=== PATIENT | female | born 1945 | race Asian ===

== ENCOUNTER 2016-07-16 21:48 | Emergency (ER) | payer MEDICARE, OTHER ==
[2016-07-16] MEDS ORDERED: ONDANSETRON 4 MG/2 ML VIAL IVP STA (22:06)
[2016-07-16] MEDS ORDERED: SODIUM CHLORIDE 0.9% 1,000 ML IV ONE (22:06)
[2016-07-16] MEDS ORDERED: ONDANSETRON 4 MG/2 ML VIAL ONE (22:30)
== END 2016-07-17 02:59 | disposition home or self-care (01) ==
DX: J11.1 Influenza due to unidentified influenza virus with other respiratory manifestations (principal)

== ENCOUNTER 2016-10-28 17:43 | Emergency (ER) | payer MEDICARE, OTHER | END 2016-10-28 18:47 | disposition left against medical advice (07) | DX: K59.00 Constipation, unspecified (principal); Z53.21 Procedure and treatment not carried out due to patient leaving prior to being seen by health care provider ==

== ENCOUNTER 2017-03-22 21:14 | Emergency (ER) | payer MEDICARE, OTHER ==
[2017-03-22] MEDS ORDERED: SODIUM CHLORIDE 0.9% 1,000 ML IV ONE (22:01)
[2017-03-22] MEDS ORDERED: ONDANSETRON 4 MG/2 ML VIAL IVP STA (22:01)
--- NOTE | 2017-03-22 22:05 | ED Physician Documentation ---
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 She started a new oral chemotherapeutic regimen tonight and about half an hour after taking the pills developed severe nausea and has vomited 4 times. She had a normal bowel movement just prior to this and denies abdominal pain.) Review of Systems Constitutional: denies: Fever, Chills Nose: denies: Rhinorrhea / runny nose, Congestion Cardiac: denies: Chest pain / pressure, Palpitations Respiratory: denies: Dyspnea, Cough GI: reports: Nausea, Vomiting. denies: Abdominal Pain, Constipation, Diarrhea PD PAST MEDICAL HISTORY - Past Medical History Past Medical History: Yes Cardiovascular: None Respiratory: Other Neuro: None Endocrine/Autoimmune: None GI: None TECHNOLOGY METHODOLOGY CONSULTANT: None : None HEENT: None Psych: None Musculoskeletal: None, Osteoporosis Derm: None - Past Surgical History Past Surgical History: Yes /TECHNOLOGY METHODOLOGY CONSULTANT: section Cardiovascular: Lobectomy - Present Medications Home Medications: Ambulatory Orders Medication Instructions Recorded Confirmed Alectinib HCl [Alecensa] 150 mg PO BID 03/22/17 03/22/17 Crizotinib [Xalkori] 1 cap PO BID 03/22/17 03/22/17 Ondansetron HCl [Zofran] 4 mg PO Q6H PRN #10 tablet 03/22/17 - Allergies Allergies/Adverse Reactions: Allergies Allergy/AdvReac Type Severity Reaction Status Date / Time influenza virus vaccine, Allergy Unknown Verified 03/22/17 21:35 specific [influenza virus vacc,specific] - Social History Does the pt smoke?: No Smoking Status: Never smoker Does the pt drink ETOH?: No Does the pt have substance abuse?: No - Immunizations Immunizations are current?: Yes - POLST Patient has POLST: Yes POLST Status: DNR PD ED PE NORMAL - Vitals Vital signs reviewed: Yes - General General: Alert and oriented X 3, Other (She is pale and somewhat jaundiced) - Neck Neck: Supple, no meningeal sign, No bony TTP - Cardiac Cardiac: RRR, No murmur - Respiratory Respiratory: No respiratory distress, Clear bilaterally - Abdomen Abdomen: Normal bowel sounds, Soft, Non tender - Neuro Neuro: Alert and oriented X 3, Normal speech - Psych Psych: Normal mood, Normal affect Results - Vitals Vitals: Vital Signs - 24 hr 03/22/17 03/22/17 03/22/17 21:33 22:25 22:51 Temperature 36.5 C 36.3 C L Heart Rate 75 65 65 Respiratory 20 16 16 Rate Blood Pressure 112/71 115/61 115/63 O2 Saturation 99 97 96 Oxygen O2 Source Room air - Labs Labs: Laboratory Tests 03/22/17 03/22/17 21:50 21:50 WBC 7.8 RBC 4.80 Hgb 10.2 L Hct 32.5 L MCV 67.6 L MCH 21.2 L MCHC 31.3 L RDW 17.6 H Plt Count 352 MPV 7.3 L Neut # 4.7 Lymph # 1.6 [place] # 1.3 H Eos # 0.2 Baso # 0.1 Absolute Nucleated RBC 0.01 Nucleated RBCs 0.1 Manual Slide Review Indicated Platelet Estimate NORMAL (130-450,000) RBC Morph Micro Appear 1+ SCHISTOCYTES Sodium 136 Potassium 4.1 Chloride 102 Carbon Dioxide 28 Anion Gap 6.0 BUN 15 Creatinine 0.8 Estimated GFR (MDRD) 71 L Glucose 98 Calcium 8.2 L Total Bilirubin 0.4 AST 46 H ALT 43 Alkaline Phosphatase 200 H Total Protein 5.6 L Albumin 3.0 L Globulin 2.6 Albumin/Globulin Ratio 1.2 Lipase 57 H PD MEDICAL DECISION MAKING - ED course ED course: 71-year-old woman with chemotherapy related nausea and vomiting. There is no evidence of bowel obstruction. I thought she may look jaundiced on exam but this is not corroborated on labs. She does have an elevated alkaline phosphatase, but this can be explained by bony metastases. She was given a liter of IV fluids and Zofran with significant improvement in her nausea and passed an oral challenge here. Departure - Departure Disposition: 01 Home, Self Care Clinical Impression: Vomiting Condition: Good Record reviewed to determine appropriate education?: Yes Instructions: Nausea Vomit Control Prescriptions: Ondansetron HCl [Zofran] 4 mg PO Q6H PRN #10 tablet PRN Reason: Nausea / Vomiting Comments: Call your oncologist tomorrow for guidance on the medication ongoing.
[2017-03-22] MEDS ORDERED: ONDANSETRON 4 MG/2 ML VIAL ONE (22:12)
[2017-03-22 22:14] LABS: BASOPHILS # (AUTO) 0.1 10^3/uL (0.0-0.1); BASOPHILS % (AUTO) 0.9 %; EOSINOPHILS # (AUTO) 0.2 10^3/uL (0.0-0.7); EOSINOPHILS % (AUTO) 2.4 %; HCT - HEMATOCRIT 32.5 % (37.0-47.0); HGB - HEMOGLOBIN 10.2 g/dL (12.0-16.0); LYMPHOCYTES # (AUTO) 1.6 10^3/uL (1.5-3.5); LYMPHOCYTES % (AUTO) 20.1 %; MEAN CORPUSCULAR HEMOGLOBIN 21.2 pg (27.0-31.0); MEAN CORPUSCULAR HGB CONC 31.3 g/dL (32.0-36.0); MEAN CORPUSCULAR VOLUME 67.6 fL (81.0-99.0); MEAN PLATELET VOLUME 7.3 fL (7.9-10.8); MONOCYTES # (AUTO) 1.3 10^3/uL (0.0-1.0); MONOCYTES % (AUTO) 16.3 %; NEUTROPHILS # (AUTO) 4.7 10^3/uL (1.5-6.6); NEUTROPHILS % (AUTO) 60.3 %; NUCLEATED RED BLOOD CELLS AUTO 0.1 /100WBC; RED CELL DISTRIBUTION WIDTH 17.6 % (12.0-15.0); UNCORRECTED WHITE BLOOD COUNT 7.8 x10^3/uL; WHITE BLOOD COUNT 7.8 x10^3/uL (4.8-10.8)
[2017-03-22 22:24] LABS: ALBUMIN/GLOBULIN RATIO 1.2 (1.0-2.2); BILIRUBIN,TOTAL 0.4 mg/dL (0.2-1.0); CALCIUM 8.2 mg/dL (8.5-10.3); CREATININE 0.8 mg/dL (0.4-1.0); POTASSIUM 4.1 mmol/L (3.5-5.0); TOTAL PROTEIN 5.6 g/dL (6.7-8.2)
[2017-03-22] MEDS ORDERED: ONDANSETRON ODT 4 MG Prepack 2 TL STA (22:38)
[2017-03-22 22:44] LABS: PLATELET ESTIMATE, MANUAL NORMAL (130-450,000) (NORMAL)
[2017-03-22] MEDS ORDERED: ONDANSETRON ODT 4 MG Prepack 2 TL ONE (22:47)
[2017-03-22 22:52] VITALS: BP 115/63
== END 2017-03-22 22:59 | disposition home or self-care (01) ==
LOC: ED 21:14
DX: R11.2 Nausea with vomiting, unspecified (principal); C34.90 Malignant neoplasm of unspecified part of unspecified bronchus or lung; C79.31 Secondary malignant neoplasm of brain; C79.51 Secondary malignant neoplasm of bone; Z92.21 Personal history of antineoplastic chemotherapy; Z90.2 Acquired absence of lung [part of]
CPT/HCPCS: 36415; 80053; 83690; 85025; 96374; 99283; 99284

== ENCOUNTER 2017-09-19 12:58 | Outpatient (CLI) | payer MEDICARE, OTHER ==
--- NOTE | 2017-09-19 16:24 | Ultrasound Report ---
RETROPERITONEAL ULTRASOUND: 09/19/2017 COMPARISON: None. INDICATION: Right renal mass or lesion on CT 08/03/2017. TECHNIQUE: Sonographic evaluation of the kidneys and urinary bladder was performed. FINDINGS: Right kidney 10.1 cm. Simple appearing lower pole cyst 1.7 cm. Otherwise, unremarkable kidney. Left kidney 9.6 cm. Mild pelviectasis. No masses or hydronephrosis. There are bilateral bladder jets. Prevoid volume 97 mL. Postvoid volume 3 mL IMPRESSION: SIMPLE APPEARING RIGHT RENAL CYST. MILD LEFT PELVIECTASIS. MINIMAL POSTVOID RESIDUAL. TD: 09/19/2017 16:22 MOHINDER
== END 2017-09-19 12:59 | disposition home or self-care (01) ==
LOC: DI 12:58
PROVIDERS: ATTEND Internal Medicine
DX: N28.1 Cyst of kidney, acquired (principal)
CPT/HCPCS: 76770

== ENCOUNTER 2017-10-13 13:54 | Emergency (ER) | payer MEDICARE, OTHER ==
[2017-10-13 14:52] VITALS: BP 116/65
[2017-10-13] MEDS ORDERED: ONDANSETRON ODT 4 MG TABLET TL STA (16:29)
--- NOTE | 2017-10-13 16:32 | ED Physician Documentation ---
PD HPI ABD PAIN - Stated complaint Stated Complaint: VOMITING/DIARRHEA - Chief complaint Chief Complaint: Abd Pain - History obtained from History obtained from: Patient, Family () - History of Present Illness Timing - onset: Today (This is a mona 72-year-old woman with lung cancer who is on maintenance oral chemotherapy. Since starting in a month ago she has had diarrhea which improved with Imodium but today had one episode of vomiting but is now feeling better. There was no abdominal pain or blood from either end with this.) Review of Systems Constitutional: denies: Fever, Chills Cardiac: denies: Chest pain / pressure, Palpitations Respiratory: denies: Dyspnea, Cough GI: reports: Nausea, Vomiting, Diarrhea. denies: Abdominal Pain, Hematemesis, Bloody / black stool PD PAST MEDICAL HISTORY - Past Medical History Cardiovascular: None Respiratory: Other Neuro: None Endocrine/Autoimmune: None GI: None BAND SAW OPERATOR: None : None HEENT: None Psych: None Musculoskeletal: None, Osteoporosis Derm: None - Past Surgical History Past Surgical History: Yes /BAND SAW OPERATOR: section Cardiovascular: Lobectomy - Present Medications Home Medications: Ambulatory Orders Medication Instructions Recorded Confirmed Ondansetron HCl [Zofran] 4 mg PO Q6H PRN #10 tablet 03/22/17 Ceritinib [Zykadia] 10/13/17 - Allergies Allergies/Adverse Reactions: Allergies Allergy/AdvReac Type Severity Reaction Status Date / Time influenza virus vaccine, Allergy Unknown Verified 03/22/17 21:35 specific [influenza virus vacc,specific] - Social History Does the pt smoke?: No Smoking Status: Never smoker Does the pt drink ETOH?: No Does the pt have substance abuse?: No - Immunizations Immunizations are current?: Yes - POLST Patient has POLST: Yes POLST Status: DNR PD ED PE NORMAL - Vitals Vital signs reviewed: Yes - General General: Alert and oriented X 3, No acute distress - Cardiac Cardiac: RRR, No murmur - Respiratory Respiratory: No respiratory distress, Clear bilaterally - Abdomen Abdomen: Normal bowel sounds, Soft, Non tender - Neuro Neuro: Alert and oriented X 3, Normal speech Results - Vitals Vitals: Vital Signs - 24 hr 10/13/17 14:37 Temperature 36.7 C Heart Rate 79 Respiratory 14 Rate Blood Pressure 116/65 O2 Saturation 97 Oxygen O2 Source Room air PD MEDICAL DECISION MAKING - ED course ED course: 1 episode of vomiting, resolved CT TECHNICIAN. NTTP. She was prescribed oral antiemetics for this by her oncologist but did not take any, today was the first time she had had issues with vomiting. She was offered IV fluids but since she already feels better she declines and just wants to go home. Departure - Departure Disposition: Home, Self Care Clinical Impression: Vomiting Qualifiers: Vomiting type: unspecified Vomiting Intractability: non-intractable Nausea presence: with nausea Qualified Code(s): R11.2 - Nausea with vomiting, unspecified Condition: Good Record reviewed to determine appropriate education?: Yes Instructions: ED Nausea Vomiting Comments: Take your home nausea meds if you have further episodes, return anytime if worse.
== END 2017-10-13 16:59 | disposition home or self-care (01) ==
LOC: ED 13:54
DX: R11.2 Nausea with vomiting, unspecified (principal); C34.90 Malignant neoplasm of unspecified part of unspecified bronchus or lung; Z90.2 Acquired absence of lung [part of]
CPT/HCPCS: 99282; 99283; Q0162

== ENCOUNTER 2018-02-24 09:10 | Outpatient (CLI) | payer MEDICARE, OTHER ==
[2018-02-24 13:02] LABS: HB2 TOTAL 13.8 g/dL; HEMOGLOBIN A1C 0.56 g/dL; HEMOGLOBIN A1C % 5.9 % (4.6-6.2)
== END 2018-02-24 09:11 | disposition home or self-care (01) ==
LOC: LAB.N 09:10
PROVIDERS: ATTEND Internal Medicine
DX: R73.9 Hyperglycemia, unspecified (principal)
CPT/HCPCS: 36415; 82947; 83036

== ENCOUNTER 2018-05-09 09:36 | Outpatient (CLI) | payer MEDICARE, OTHER ==
--- NOTE | 2018-05-09 12:49 | Ultrasound Report ---
Reason: RUQ PAIN Procedure Date: 05/09/2018 Accession Number: [id number] / [id number] Procedure: US - Abdomen Limited CPT Code: FULL RESULT: EXAM: ABDOMEN ULTRASOUND LIMITED, RIGHT UPPER QUADRANT EXAM DATE: 05/09/2018 10:33 AM. CLINICAL HISTORY: Right upper quadrant pain. COMPARISON: ABDOMEN/PELVIS W/O 11/21/2014 12:09 AM. TECHNIQUE: Real-time scanning was performed with static images obtained. FINDINGS: Liver: Heterogeneous and echogenic liver parenchyma. Right lobe of the liver measures at least 10.1 cm. Main portal vein flow: Hepatopetal. Gallbladder: Small mobile calculi are appreciated. There are no other signs to suggest cholecystitis and the sonographic Duong's sign is negative. Biliary System: CBD measures 3 mm. No intrahepatic or extrahepatic ductal dilatation. Other: Right kidney is grossly unremarkable aside from a simple renal cyst measuring up to 1.5 cm. IMPRESSION: Echogenic liver parenchyma, which can be seen with parenchymal disease such as hepatic steatosis. RADIA
== END 2018-05-09 09:37 | disposition home or self-care (01) ==
LOC: DI 09:36
PROVIDERS: ATTEND Internal Medicine Gastroenterology
DX: R10.11 Right upper quadrant pain (principal)
CPT/HCPCS: 76705

== ENCOUNTER 2018-08-10 09:57 | Outpatient (CLI) | payer MEDICARE, OTHER ==
[2018-08-10 10:45] LABS: BASOPHILS # (AUTO) 0.1 10^3/uL (0.0-0.1); BASOPHILS % (AUTO) 2.7 %; EOSINOPHILS # (AUTO) 0.1 10^3/uL (0.0-0.7); EOSINOPHILS % (AUTO) 1.2 %; LYMPHOCYTES # (AUTO) 0.9 10^3/uL (1.5-3.5); LYMPHOCYTES % (AUTO) 18.3 %; MEAN CORPUSCULAR HEMOGLOBIN 22.6 pg (27.0-31.0); MEAN CORPUSCULAR HGB CONC 31.3 g/dL (32.0-36.0); MEAN CORPUSCULAR VOLUME 72.1 fL (81.0-99.0); MEAN PLATELET VOLUME 7.9 fL (7.9-10.8); MONOCYTES # (AUTO) 0.6 10^3/uL (0.0-1.0); MONOCYTES % (AUTO) 11.8 %; NEUTROPHILS # (AUTO) 3.4 10^3/uL (1.5-6.6); PLT - PLATELET COUNT 212 10^3/uL (130-450); RED BLOOD COUNT 5.78 10^6/uL (4.20-5.40); RED CELL DISTRIBUTION WIDTH 15.9 % (12.0-15.0); WHITE BLOOD COUNT 5.2 x10^3/uL (4.8-10.8)
[2018-08-10 10:56] LABS: ALBUMIN/GLOBULIN RATIO 1.5 (1.0-2.2); ALKALINE PHOSPHATASE 56 IU/L (42-121); ALT ALANINE AMINOTRANSFERASE 51 IU/L (10-60); AST ASPARTATE AMINOTRANSFERASE 39 IU/L (10-42); BILIRUBIN,TOTAL 0.8 mg/dL (0.2-1.0); BUN - BLOOD UREA NITROGEN 9 mg/dL (6-20); CALCIUM 9.3 mg/dL (8.5-10.3); CARBON DIOXIDE - CO2 26 mmol/L (21-32); CHLORIDE 101 mmol/L (101-111); CHOL/HDL RATIO 2.7 (<4.4); CHOLESTEROL 270 mg/dL; CREATININE 0.7 mg/dL (0.4-1.0); GFR - MDRD 82 (>89); GLUCOSE 99 mg/dL (70-100); HDL CHOLESTEROL 100 mg/dL; LDL CHOLESTEROL,CALCULATED 152 mg/dL; LDL/HDL RATIO 1.5 (<4.4); SODIUM 135 mmol/L (135-145); TOTAL PROTEIN 6.7 g/dL (6.7-8.2); VLDL CHOLESTEROL 18 mg/dL
[2018-08-10 11:07] LABS: HB2 TOTAL 13.9 g/dL; HEMOGLOBIN A1C 0.52 g/dL; HEMOGLOBIN A1C % 5.6 % (4.6-6.2)
== END 2018-08-10 09:58 | disposition home or self-care (01) ==
LOC: LAB 09:57
PROVIDERS: ATTEND Internal Medicine
DX: Z13.6 Encounter for screening for cardiovascular disorders (principal); R10.31 Right lower quadrant pain; R53.83 Other fatigue; K76.0 Fatty (change of) liver, not elsewhere classified; C79.51 Secondary malignant neoplasm of bone; R74.8 Abnormal levels of other serum enzymes; D56.3 Thalassemia minor; C34.90 Malignant neoplasm of unspecified part of unspecified bronchus or lung; E78.5 Hyperlipidemia, unspecified; R73.9 Hyperglycemia, unspecified; Z79.899 Other long term (current) drug therapy
CPT/HCPCS: 36415; 80053; 80061; 83036; 83721; 84443; 85025

== ENCOUNTER 2018-10-06 02:28 | Emergency (ER) | payer MEDICARE, OTHER ==
[2018-10-06] MEDS ORDERED: LOPERAMIDE 2 MG CAPSULE PO STA (02:41)
[2018-10-06] MEDS ORDERED: ONDANSETRON 4 MG/2 ML VIAL IVP STA (02:41)
[2018-10-06] MEDS ORDERED: SODIUM CHLORIDE 0.9% 1,000 ML IV ONE (02:41)
--- NOTE | 2018-10-06 02:43 | ED Physician Documentation ---
PD HPI NVD - Stated complaint Stated Complaint: NVD - Chief complaint Chief Complaint: Abd Pain - History obtained from History obtained from: Patient, Family - History of Present Illness Timing - onset: Today (She became abruptly ill at 2 PM yesterday with nausea, vomiting, and diarrhea. She has had many episodes of both and feels very weak. She denies any abdominal or other pains. No fevers.) Review of Systems Constitutional: denies: Fever, Chills Cardiac: denies: Chest pain / pressure Respiratory: denies: Dyspnea GI: reports: Nausea, Vomiting, Diarrhea. denies: Abdominal Pain, Hematemesis, Bloody / black stool PD PAST MEDICAL HISTORY - Past Medical History Cardiovascular: None Respiratory: Other Endocrine/Autoimmune: None GI: None TEST DEPARTMENT HELPER: None : None HEENT: None Psych: None Musculoskeletal: None, Osteoporosis Derm: None - Past Surgical History Past Surgical History: Yes /TEST DEPARTMENT HELPER: section Cardiovascular: Lobectomy - Present Medications Home Medications: Ambulatory Orders Medication Instructions Recorded Confirmed Ceritinib [Zykadia] 300 mg PO DAILY 10/13/17 10/06/18 Naltrexone HCl 1 mg PO DAILY 10/06/18 10/06/18 Ondansetron Odt [Zofran] 4 mg TL Q6H PRN #10 tablet 10/06/18 - Allergies Allergies/Adverse Reactions: Allergies Allergy/AdvReac Type Severity Reaction Status Date / Time influenza virus vaccine, Allergy Unknown Verified 10/06/18 02:36 specific [influenza virus vacc,specific] - Social History Does the pt smoke?: No Smoking Status: Never smoker Does the pt drink ETOH?: No Does the pt have substance abuse?: No - Immunizations Immunizations are current?: Yes - POLST Patient has POLST: Yes POLST Status: DNR PD ED PE NORMAL - Vitals Vital signs reviewed: Yes - General General: Alert and oriented X 3, Other (She is actively retching) - HEENT HEENT: PERRL, Pharynx benign - Neck Neck: Supple, no meningeal sign, No bony TTP - Abdomen Abdomen: Normal bowel sounds, Soft, Non tender - Back Back: No CVA TTP, No spinal TTP - Derm Derm: Normal color, Warm and dry - Extremities Extremities: No edema, No calf tenderness / cord - Neuro Neuro: Alert and oriented X 3, Normal speech - Psych Psych: Normal mood, Normal affect Results - Vitals Vitals: Vital Signs - 24 hr 10/06/18 10/06/18 10/06/18 02:30 03:05 03:17 Temperature 36.5 C 36.6 C Heart Rate 85 89 97 Respiratory 18 17 18 Rate Blood Pressure 123/73 100/52 L 101/63 O2 Saturation 100 99 100 10/06/18 03:35 Temperature Heart Rate 86 Respiratory 18 Rate Blood Pressure 98/58 L O2 Saturation 100 Oxygen O2 Source Room air - Labs Labs: Laboratory Tests 10/06/18 10/06/18 10/06/18 02:47 02:47 02:47 WBC 7.9 RBC 5.10 Hgb 11.3 L Hct 35.9 L MCV 70.4 L MCH 22.2 L MCHC 31.6 L RDW 15.4 H Plt Count 192 MPV 7.6 L Neut # (Auto) 5.6 Lymph # (Auto) 1.2 L [place] # (Auto) 0.8 Eos # (Auto) 0.1 Baso # (Auto) 0.3 H Absolute Nucleated RBC 0.00 Nucleated RBC % 0.0 Sodium 134 L Potassium 5.4 H Chloride 100 L Carbon Dioxide 27 Anion Gap 7.0 BUN 12 Creatinine 0.7 Estimated GFR (MDRD) 82 L Glucose 116 H Calcium 8.4 L Total Bilirubin 1.2 H AST 65 H ALT 33 Alkaline Phosphatase 61 Troponin I < 0.04 Total Protein 5.9 L Albumin 3.4 Globulin 2.5 Albumin/Globulin Ratio 1.4 Lipase 49 PD MEDICAL DECISION MAKING - ED course ED course: This is a 73-year-old woman who presents with vomiting and diarrhea. Exam is benign. Labs were checked, modest hyperkalemia, normal renal function, chronic anemia. Nothing else to speak of. She is feeling modestly better after IV Zofran much better after IV Reglan. Departure - Departure Disposition: 01 Home, Self Care Clinical Impression: Gastroenteritis Condition: Good Record reviewed to determine appropriate education?: Yes Instructions: ED Gastroenteritis Viral Prescriptions: Ondansetron Odt [Zofran] 4 mg TL Q6H PRN #10 tablet PRN Reason: Nausea / Vomiting Comments: Return in 12 hours if not better, anytime if worsening or if new symptoms develop especially significant abdominal pain or fevers.
[2018-10-06] MEDS ORDERED: METOCLOPRAMIDE 10 MG/2 ML VIAL IVP STA (03:11)
[2018-10-06 03:27] LABS: BASOPHILS # (AUTO) 0.3 10^3/uL (0.0-0.1); BASOPHILS % (AUTO) 3.9 %; EOSINOPHILS # (AUTO) 0.1 10^3/uL (0.0-0.7); EOSINOPHILS % (AUTO) 0.7 %; HGB - HEMOGLOBIN 11.3 g/dL (12.0-16.0); LYMPHOCYTES # (AUTO) 1.2 10^3/uL (1.5-3.5); LYMPHOCYTES % (AUTO) 15.2 %; MEAN CORPUSCULAR HEMOGLOBIN 22.2 pg (27.0-31.0); MEAN CORPUSCULAR HGB CONC 31.6 g/dL (32.0-36.0); MEAN CORPUSCULAR VOLUME 70.4 fL (81.0-99.0); MEAN PLATELET VOLUME 7.6 fL (7.9-10.8); MONOCYTES # (AUTO) 0.8 10^3/uL (0.0-1.0); MONOCYTES % (AUTO) 9.7 %; NEUTROPHILS # (AUTO) 5.6 10^3/uL (1.5-6.6); NEUTROPHILS % (AUTO) 70.5 %; PLT - PLATELET COUNT 192 10^3/uL (130-450); RED CELL DISTRIBUTION WIDTH 15.4 % (12.0-15.0); WHITE BLOOD COUNT 7.9 x10^3/uL (4.8-10.8)
[2018-10-06 03:40] VITALS: BP 98/58
[2018-10-06 03:40] LABS: ALBUMIN 3.4 g/dL (3.2-5.5); ALBUMIN/GLOBULIN RATIO 1.4 (1.0-2.2); BILIRUBIN,TOTAL 1.2 mg/dL (0.2-1.0); CALCIUM 8.4 mg/dL (8.5-10.3); CREATININE 0.7 mg/dL (0.4-1.0); TOTAL PROTEIN 5.9 g/dL (6.7-8.2)
[2018-10-06] MEDS ORDERED: ONDANSETRON ODT 4 MG Prepack 2 TL STA (04:10)
== END 2018-10-06 04:20 | disposition home or self-care (01) ==
LOC: ED 02:28
DX: K52.9 Noninfective gastroenteritis and colitis, unspecified (principal); E87.5 Hyperkalemia; D53.9 Nutritional anemia, unspecified; Z66 Do not resuscitate
CPT/HCPCS: 36415; 80053; 83690; 84484; 85025; 96374; 96375; 99283; 99284; A9270; J2765

== ENCOUNTER 2019-01-26 10:53 | Outpatient (CLI) | payer MEDICARE, OTHER ==
--- NOTE | 2019-01-26 15:35 | Ultrasound Report ---
Reason: THYROID NODULE Procedure Date: 01/26/2019 Accession Number: [id number] / [id number] Procedure: US - Head or Neck Soft Tissue CPT Code: FULL RESULT: EXAM: THYROID ULTRASOUND EXAM DATE: 01/26/2019 11:35 AM. CLINICAL HISTORY: Thyroid nodule. COMPARISON: None. TECHNIQUE: Real time sonographic imaging of the thyroid was performed by the civil engineer land development. Multiple customer response representative static images were saved for review. FINDINGS: THYROID GLAND: Right Lobe: 3.7 x 2.5 x 1.9 cm, volume 8.2 cc. Normal background echotexture. Right Lobe Nodules: Upper pole 1.4 x 1.5 x 1.5 cm, mid pole 1.7 x 1.9 x 1.8 cm nodule and lower pole 1.0 x 1.2 1.4 cm nodule. Left Lobe: 3.9 x 1.8 x 1.1 cm, volume 3.7 cc. Normal background echotexture. Left Lobe Nodules: 3 partially-cystic partially-solid nodules measuring less than 1 cm, largest nodule up to 0.7 cm are seen. Isthmus: 0.2 cm AP. Isthmic Nodules: None. LYMPH NODES: No adenopathy demonstrated in the central or lateral compartment. OTHER: None. IMPRESSION: Recommend tissue sampling by ultrasound-guided FNA of the dominant right mid pole nodule. Management recommendations are based on 2015 [place] [employer] Management Guidelines for Adult Patients with Thyroid Nodules and Differentiated Thyroid Cancer. RADIA
== END 2019-01-26 10:54 | disposition home or self-care (01) ==
LOC: DI 10:53
PROVIDERS: ATTEND Internal Medicine
DX: E04.2 Nontoxic multinodular goiter (principal)
CPT/HCPCS: 76536

== ENCOUNTER 2019-02-23 20:07 | Emergency (ER) | payer MEDICARE, OTHER ==
[2019-02-23] MEDS ORDERED: SODIUM CHLORIDE 0.9% 1,000 ML IV STA (20:34)
--- NOTE | 2019-02-23 20:39 | ED Physician Documentation ---
History of Present Illness - Stated complaint Stated Complaint: D/V/PASSED OUT - Chief complaint Chief Complaint: Abd Pain - Additonal information Additional information: This is a 73-year-old female with a history of lung cancer with metastasis who presents with episode of syncope and epigastric pain. Patient states that she just recently started a new chemotherapy drug Lobrena, She started this 2 days ago. She has had nausea, vomiting, and diarrhea since starting the medication. Today about an hour prior to arrival she developed epigastric discomfort. When she got out of bed to go to the bathroom she became lightheaded and passed out back into bed. She did not hit her head. She unconscious for seconds, but did feel weak for minutes afterwards. Her witnessed the event, put her into the car, and brought her to the hospital. At this time she denies pain. She called the oncologist occupational psychologist and Elise Lindsey who told her to come the emergency department to get checked out due to concern for dehydration. Review of Systems Constitutional: denies: Fever Eyes: denies: Loss of vision Nose: denies: Congestion Cardiac: denies: Chest pain / pressure Respiratory: denies: Dyspnea GI: reports: Nausea, Vomiting, Diarrhea : denies: Dysuria Neurologic: reports: Syncope Immunocompromised: reports: Chemotherapy PD PAST MEDICAL HISTORY - Past Medical History Cardiovascular: None Respiratory: Other Endocrine/Autoimmune: None GI: None WEIGHT CHECKER: None : None HEENT: None Psych: None Musculoskeletal: None, Osteoporosis Derm: None - Past Surgical History Past Surgical History: Yes /WEIGHT CHECKER: section Cardiovascular: Lobectomy - Present Medications Home Medications: Ambulatory Orders Medication Instructions Recorded Confirmed Ceritinib [Zykadia] 300 mg PO DAILY 10/13/17 10/06/18 Ondansetron Odt [Zofran] 4 mg TL Q6H PRN #10 tablet 10/06/18 RX: Naltrexone HCl 1 mg PO DAILY 10/06/18 10/06/18 - Allergies Allergies/Adverse Reactions: Allergies Allergy/AdvReac Type Severity Reaction Status Date / Time influenza virus vaccine, Allergy Unknown Verified 10/06/18 02:36 specific [influenza virus vacc,specific] - Social History Does the pt smoke?: No Smoking Status: Never smoker Does the pt drink ETOH?: No Does the pt have substance abuse?: No - Immunizations Immunizations are current?: Yes - POLST Patient has POLST: Yes POLST Status: DNR PD ED PE NORMAL - Vitals Vital signs reviewed: Yes - General General: Alert and oriented X 3, No acute distress - HEENT HEENT: PERRL - Neck Neck: Supple, no meningeal sign - Cardiac Cardiac: RRR, No murmur - Respiratory Respiratory: Clear bilaterally - Abdomen Abdomen: Normal bowel sounds, Soft, Non tender, Non distended - Derm Derm: Warm and dry - Extremities Extremities: No deformity - Neuro Neuro: Alert and oriented X 3, dusting and brushing machine operator 2-12 intact, No motor deficit, No sensory deficit, Normal speech - Psych Psych: Normal mood, Normal affect Results - Vitals Vitals: Vital Signs - 24 hr 02/23/19 02/24/19 23:24 00:19 Heart Rate 70 69 Respiratory 25 H 14 Rate Blood Pressure 128/71 128/71 O2 Saturation 99 98 Oxygen O2 Source Room air - EKG (time done) 20:43 Other comments: Other comments (Rate 71, rhythm sinus, RSR prime in lead aVL. There is no ST segment depression or elevation, no abnormal T wave inversions. Left atrial enlargement is present. [place] is normal. QTc 466) - Labs Labs: Laboratory Tests 02/23/19 02/23/19 02/23/19 20:35 20:35 21:03 WBC 10.4 RBC 5.20 Hgb 11.6 L Hct 36.8 L MCV 70.8 L MCH 22.3 L MCHC 31.5 L RDW 16.6 H Plt Count 237 MPV 9.4 Neut # (Auto) 5.8 Lymph # (Auto) 2.8 [place] # (Auto) 1.0 Eos # (Auto) 0.6 Baso # (Auto) 0.1 Absolute Nucleated RBC 0.00 Nucleated RBC % 0.0 Sodium 137 Potassium 3.9 Chloride 100 L Carbon Dioxide 26 Anion Gap 11.0 BUN 11 Creatinine 0.7 Estimated GFR (MDRD) 82 L Glucose 154 H Calcium 8.8 Total Bilirubin 0.4 AST 26 ALT 21 Alkaline Phosphatase 171 H Troponin I High Sens 4.8 Total Protein 5.9 L Albumin 3.2 Globulin 2.7 Albumin/Globulin Ratio 1.2 Lipase 61 H 02/23/19 23:06 WBC RBC Hgb Hct MCV MCH MCHC RDW Plt Count MPV Neut # (Auto) Lymph # (Auto) [place] # (Auto) Eos # (Auto) Baso # (Auto) Absolute Nucleated RBC Nucleated RBC % Sodium Potassium Chloride Carbon Dioxide Anion Gap BUN Creatinine Estimated GFR (MDRD) Glucose Calcium Total Bilirubin AST ALT Alkaline Phosphatase Troponin I High Sens 5.9 Total Protein Albumin Globulin Albumin/Globulin Ratio Lipase PD MEDICAL DECISION MAKING - ED course Complexity details: considered differential (Dehydration, orthostatic hypotension, medication side effect, dysrhythmia, ACS, electrolyte abnormality, seizure) ED course: On my evaluation patient is well-appearing, her vital signs are unremarkable. Her blood pressure is within normal range. She is complaining of no pain at this time. Her neurologic exam is unremarkable. IV was inserted labs were drawn patient was given a liter of normal saline followed by a liter of lactated Ringer's. Labs are notable for stable anemia, elevated alk phos. Her electrolytes are unremarkable. EKG shows no convincing signs of ischemia or dysrhythmia, high-sensitivity troponin is negative. Based on patient's history labs and physical exam, I think she most likely had an episode of orthostatic hypotension which is likely secondary to some dehydration. She may also be having some effects from her new chemotherapy medication. After discussion with patient and her , they prefer to be discharged home given that she is feeling very well this time. She has no symptoms on standing after fluid hydration. They do understand the diagnostic uncertainty and risk that more nefarious causes of syncope are possible, but would still like to discharge. They are in touch with her oncologist and they will decide whether to continue with the new medication or not. I discussed that if she develops any further syncope, any chest pain, shortness of breath, system vomiting, or other concerning symptoms she is to return to the emergency department immediately. She agrees this plan and was discharged. Departure - Departure Disposition: 01 Home, Self Care Clinical Impression: Syncope Condition: Stable Instructions: ED Fainting Unkn Cause Follow-Up: Your,PCP and Oncologist [Other] (As soon as possible) Comments: You were seen today because you passed out. It appears that you were likely dehydrated from your vomiting and diarrhea. If you have any chest pain, shortness of breath, or further episodes of passing out, return to the emergency department immediately. Please discuss with your oncologist if you should continue your new chemotherapy medication. Follow-up as soon as possible with your oncologist and your primary care provider. Discharge Date/Time: 02/24/19 00:21
[2019-02-23 20:44] LABS: BASOPHILS # (AUTO) 0.1 10^3/uL (0.0-0.1); BASOPHILS % (AUTO) 0.9 %; EOSINOPHILS # (AUTO) 0.6 10^3/uL (0.0-0.7); EOSINOPHILS % (AUTO) 5.6 %; HGB - HEMOGLOBIN 11.6 g/dL (12.0-16.0); LYMPHOCYTES # (AUTO) 2.8 10^3/uL (1.5-3.5); LYMPHOCYTES % (AUTO) 27.2 %; MEAN CORPUSCULAR HEMOGLOBIN 22.3 pg (27.0-31.0); MEAN CORPUSCULAR HGB CONC 31.5 g/dL (32.0-36.0); MEAN CORPUSCULAR VOLUME 70.8 fL (81.0-99.0); MEAN PLATELET VOLUME 9.4 fL (7.9-10.8); MONOCYTES % (AUTO) 9.3 %; NEUTROPHILS # (AUTO) 5.8 10^3/uL (1.5-6.6); PLT - PLATELET COUNT 237 10^3/uL (130-450); RED CELL DISTRIBUTION WIDTH 16.6 % (12.0-15.0); WHITE BLOOD COUNT 10.4 x10^3/uL (4.8-10.8)
[2019-02-23 21:24] LABS: ALBUMIN 3.2 g/dL (3.2-5.5); ALBUMIN/GLOBULIN RATIO 1.2 (1.0-2.2); BILIRUBIN,TOTAL 0.4 mg/dL (0.2-1.0); CALCIUM 8.8 mg/dL (8.5-10.3); CREATININE 0.7 mg/dL (0.4-1.0); TOTAL PROTEIN 5.9 g/dL (6.7-8.2)
--- NOTE | 2019-02-23 21:57 | XRAY Report ---
Reason: syncope Procedure Date: 02/23/2019 Accession Number: [id number] / [id number] Procedure: XR - Chest 2 View X-Ray CPT Code: 00733 FULL RESULT: EXAM: CHEST RADIOGRAPHY EXAM DATE: 02/23/2019 09:31 PM. CLINICAL HISTORY: Syncope. COMPARISON: CHEST 2 VIEW PA/LAT 12/17/2015 11:41 AM. TECHNIQUE: 2 views. FINDINGS: Cardiac leads overlie the chest. Redemonstrated postoperative changes from left pneumonectomy. There is leftward mediastinal shift related to volume loss. The heart is obscured by partial left hemithorax opacification. The right lung is clear with compensatory hyperexpansion. No consolidation, pleural effusion, or pneumothorax visualized in the right lung. Unchanged sclerosis of the T7 vertebral body. Chronic compression deformity of the T8 vertebral body. IMPRESSION: No acute pulmonary findings. Redemonstrated postoperative changes from left pneumonectomy. Unchanged chronic sclerosis of the T7 vertebral body. Chronic compression deformity of the T8 vertebral body. RADIA
[2019-02-23] MEDS ORDERED: LACTATED RINGERS 1,000 ML IV ONE (22:53)
[2019-02-23 23:24] VITALS: BP 128/71
== END 2019-02-24 00:21 | disposition home or self-care (01) ==
LOC: ED 20:07
DX: R55 Syncope and collapse (principal); Z79.899 Other long term (current) drug therapy
CPT/HCPCS: 36415; 71046; 80053; 83690; 84484; 85025; 93005; 96360; 99284; J7120; 83735

== ENCOUNTER 2019-03-24 07:59 | Outpatient (CLI) | payer MEDICARE, OTHER ==
--- NOTE | 2019-03-26 10:54 | Ultrasound Report ---
Reason: ABDOMINAL DISTENTION Procedure Date: 03/24/2019 Accession Number: [id number] / [id number] Procedure: US - Abdomen Complete CPT Code: FULL RESULT: EXAM: ABDOMEN ULTRASOUND EXAM DATE: 03/24/2019 09:10 AM. CLINICAL HISTORY: ABDOMINAL DISTENTION. COMPARISON: ABDOMEN LIMITED 05/09/2018 9:38 AM. TECHNIQUE: Real-time scanning was performed with static images obtained. FINDINGS: Liver: Normal in size and heterogeneous in echotexture. 10.6 cm. Main portal vein flow: Hepatopetal. Gallbladder: Mobile stones largest 1.2 cm. Wall thickness 2 mm. Biliary System: Common bile duct measures 3 mm. No intrahepatic or extrahepatic ductal dilatation. Pancreas: Imaged portion is unremarkable. Kidneys: Right: 9.1 cm longitudinally. 1.7 cm in diameter inferior cyst. No contour-deforming mass, stones, or hydronephrosis. Left: 10.2 cm longitudinally. Normal. No contour-deforming mass, stones, or hydronephrosis. Spleen: 7.3 cm. Normal in size and echotexture. Aorta and Inferior Vena Cava: Unremarkable. Free fluid: None. IMPRESSION: 1. Cholelithiasis without findings of cholecystitis 2. Heterogeneous echogenic hepatic parenchyma, consider fatty infiltration of the liver. 3. Simple right renal cyst. 4. Otherwise negative. 5. Similar in appearance to 05/09/2018. RADIA
== END 2019-03-24 08:00 | disposition home or self-care (01) ==
LOC: DI 07:59
PROVIDERS: ATTEND Internal Medicine
DX: K80.20 Calculus of gallbladder without cholecystitis without obstruction (principal); N28.1 Cyst of kidney, acquired
CPT/HCPCS: 76700

== ENCOUNTER 2019-08-10 10:37 | Outpatient (CLI) | payer MEDICARE, OTHER ==
--- NOTE | 2019-08-15 19:06 | Mammography Report ---
Reason: ROUTINE MAMMO Procedure Date: 08/10/2019 Accession Number: [id number] / [id number] Procedure: MGN - Screening Mammo Dig Bilat CPT Code: Final Report FULL RESULT: EXAM: Screening Mammo Dig Bilat DATE: 08/10/2019 11:17 AM CLINICAL HISTORY: Routine screening TECHNIQUE: (B) - Bilateral CC and MLO views were obtained. COMPARISON: 09/08/2018, 09/01/2016, 07/21/2015, 07/15/2014, 07/17/2012, 08/10/2011 PARENCHYMAL PATTERN: (D) - The breasts demonstrate heterogeneously dense fibroglandular parenchyma bilaterally. FINDINGS: No significant interval change. There are no suspicious masses, calcifications, or areas of distortion. IMPRESSION: Negative examination. BI-RADS category 1. RECOMMENDATION: (ANNUAL) - Recommend routine annual screening mammography. BI-RADS CATEGORY: (1) - Negative. STANDARD QUALIFYING STATEMENTS: 1. This examination was not reviewed with the aid of Computer-Aided Detection (CAD). 2. A negative or benign imaging report should not preclude biopsy if clinically suspicious findings are present. 3. Dense breasts may obscure an underlying neoplasm. 4. This examination was reviewed without the aid of 3D breast imaging (tomosynthesis).
== END 2019-08-10 10:38 | disposition home or self-care (01) ==
LOC: DI.N 10:37
PROVIDERS: ATTEND Internal Medicine
DX: Z12.31 Encounter for screening mammogram for malignant neoplasm of breast (principal)
CPT/HCPCS: 77067

== ENCOUNTER 2019-09-17 08:59 | Outpatient (CLI) | payer MEDICARE, OTHER ==
--- NOTE | 2019-09-17 10:21 | Ultrasound Report ---
Reason: MULTINODULAR GOITER Procedure Date: 09/17/2019 Accession Number: [id number] / [id number] Procedure: US - Head or Neck Soft Tissue CPT Code: Final Report FULL RESULT: EXAM: THYROID ULTRASOUND EXAM DATE: 09/17/2019 09:40 AM. CLINICAL HISTORY: Multinodular goiter. COMPARISON: HEAD OR NECK SOFT TISSUE 01/26/2019 10:55 AM. TECHNIQUE: Real time sonographic imaging of the thyroid was performed by the netezza architect. Multiple customer relations representative static images were saved for review. FINDINGS: THYROID GLAND: Right Lobe: 4.2 x 1.9 x 2.2 cm, volume 9.1 cc. Normal background echotexture. Right Lobe Nodules: Redemonstration of 3 nodules which have not enlarged in the interval from superior to inferior: Hypoechoic rim calcified 1.4 x 1.2 x 1.3 cm, heterogeneous 1.9 x 1.4 x 1.6 cm, heterogeneous 1.1 x 0.8 x 0.9 cm. Left Lobe: 4.4 x 1.3 x 1.1 cm, volume 3.2 cc. Normal background echotexture. Left Lobe Nodules: A total of 3 subcentimeter nodules have not enlarged in the interval, from superior to inferior: 0.5 x 0.5 x 0.3, no heterogeneous potentially partially cystic, 0.6 x 0.4 x 0.4, heterogeneous, potentially partially cystic, 0.4 x 0.2 x 0.3, heterogeneous. Isthmus: 0.3 cm AP. Normal background echotexture. Isthmic Nodules: None. LYMPH NODES: No adenopathy demonstrated in the central or lateral compartment. OTHER: None. IMPRESSION: The superior pole and midpole of the right thyroid lobe nodules meet tissue sampling criteria. Recommendation is for FNA tissue sampling with ultrasound guidance of the superior and middle right thyroid lobe nodules unless this has already been performed. Management recommendations are based on 2015 [place] [employer] Management Guidelines for Adult Patients with Thyroid Nodules and Differentiated Thyroid Cancer. RADIA
== END 2019-09-17 09:00 | disposition home or self-care (01) ==
LOC: DI 08:59
PROVIDERS: ATTEND Internal Medicine
DX: E04.2 Nontoxic multinodular goiter (principal)
CPT/HCPCS: 76536

== ENCOUNTER 2019-12-19 03:49 | Outpatient (CLI) | payer MEDICARE, OTHER | END 2019-12-19 03:50 | disposition critical access hospital (66) | LOC: EMS 03:49 | PROVIDERS: ATTEND Surgery | DX: S09.90XA Unspecified injury of head, initial encounter (principal); R41.0 Disorientation, unspecified; R10.9 Unspecified abdominal pain; R11.0 Nausea; W18.30XA Fall on same level, unspecified, initial encounter; Y92.003 Bedroom of unspecified non-institutional (private) residence as the place of occurrence of the external cause | CPT/HCPCS: A0425; A0427 ==

== ENCOUNTER 2019-12-19 04:03 | Emergency (ER) | payer MEDICARE, OTHER ==
--- NOTE | 2019-12-19 04:18 | ED Physician Documentation ---
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 This was unwitnessed but s.o. heard her fall and found her on the bathroom floor unconscious with bleedin g from head laceration. unknown duration of LOC. Medics arrived to find patient awake and alert but difficulty with answering questions quickly and accurately. they noted brisk bleeding from left side of scalp and had difficulty controlling the bleeding despite pressure and bandage. Review of Systems Unable to obtain: Other (limited (see ED course)) Cardiac: denies: Chest pain / pressure Respiratory: denies: Dyspnea GI: reports: Nausea, Vomiting. 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 Cardiovascular: Lobectomy - Present Medications Home Medications: Ambulatory Orders Medication Instructions Recorded Confirmed Ceritinib [Zykadia] 300 mg PO DAILY 10/13/17 10/06/18 Naltrexone HCl 1 mg PO DAILY 10/06/18 10/06/18 Ondansetron Odt [Zofran] 4 mg TL Q6H PRN #10 tablet 10/06/18 - Allergies Allergies/Adverse Reactions: Allergies Allergy/AdvReac Type Severity Reaction Status Date / Time influenza virus vaccine, Allergy Unknown Verified 12/19/19 04:23 specific [influenza virus vacc,specific] - Social History Does the pt smoke?: No Smoking Status: Never smoker Does the pt drink ETOH?: No Does the pt have substance abuse?: No - Immunizations Immunizations are current?: Yes - POLST Patient has POLST: Yes POLST Status: DNR PD ED PE NORMAL - Vitals Vital signs reviewed: Yes - General General: No acute distress, Well developed/nourished, Other (c-collar in place and patient is on backboard. eyes closed but opens eyes on command. waxing and waning distress. 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, No motor deficit, Normal speech Eye Opening: To Voice Motor: Obeys Commands Verbal: Oriented GCS Score: 14 PD ED PE EXPANDED - HEENT HEENT: Other (swelling, echymosis of left infraorbit and left upper/lower lips; laceration of left upper lip, mucosal aspect) Results - Vitals Vitals: Vital Signs - 24 hr 12/19/19 12/19/19 12/19/19 04:02 04:37 05:29 Temperature 36.5 C Heart Rate 89 97 92 Respiratory 16 17 18 Rate Blood Pressure 113/83 H 117/92 H 95/75 O2 Saturation 99 98 100 12/19/19 12/19/19 05:57 06:22 Temperature Heart Rate 83 86 Respiratory 14 14 Rate Blood Pressure 93/68 103/80 O2 Saturation 100 100 Oxygen O2 Source Nasal cannula - Labs Labs: Laboratory Tests 12/19/19 12/19/19 12/19/19 04:20 04:20 04:20 WBC 13.9 H RBC 4.97 Hgb 10.6 L Hct 34.8 L MCV 70.0 L MCH 21.3 L MCHC 30.5 L RDW 16.4 H Plt Count 256 MPV 9.7 Neut # (Auto) 7.2 H Lymph # (Auto) 5.2 H Pratt # (Auto) 1.0 Eos # (Auto) 0.3 Baso # (Auto) 0.1 Absolute Nucleated RBC 0.00 Nucleated RBC % 0.0 PT 11.1 INR 1.0 APTT 23.0 L Sodium 138 Potassium 3.3 L Chloride 100 L Carbon Dioxide 25 Anion Gap 13.0 BUN 18 Creatinine 0.5 Estimated GFR (MDRD) 120 Glucose 176 H Calcium 9.1 Total Bilirubin 0.5 AST 31 ALT 24 Alkaline Phosphatase 234 H Total Protein 6.2 L Albumin 3.7 Globulin 2.5 Albumin/Globulin Ratio 1.5 Lipase 50 Blood Type Antibody Screen 12/19/19 05:20 WBC RBC Hgb Hct MCV MCH MCHC RDW Plt Count MPV Neut # (Auto) Lymph # (Auto) Pratt # (Auto) Eos # (Auto) Baso # (Auto) Absolute Nucleated RBC Nucleated RBC % PT INR APTT Sodium Potassium Chloride Carbon Dioxide Anion Gap BUN Creatinine Estimated GFR (MDRD) Glucose Calcium Total Bilirubin AST ALT Alkaline Phosphatase Total Protein Albumin Globulin Albumin/Globulin Ratio Lipase Blood Type B POSITIVE Antibody Screen NEGATIVE - Rads (name of study) CT head Radiology: Prelim report reviewed, See rad report CT cervical spine Radiology: Prelim report reviewed, See rad report CT facial bones Radiology: Prelim report reviewed, See rad report cxr Radiology: Prelim report reviewed, See rad report PD MEDICAL DECISION MAKING - ED course Complexity details: reviewed old records, reviewed results, re-evaluated patient, considered differential, d/w patient, d/w family ED course: On arrival, patient follows commands and answers questions, although frequently c/o being cold and difficulty breathing through her nose. She repeated these two c/o repeatedly, making HPI and ROS difficult to obtain accurately and efficiently. Scalp laceration was not repaired, but bleeding was well controlled when ED RNs and I replaced the dressing that had been placed in the field by EMS. There was pulsatile flow prior to our placement of the dressing, making visualization difficult but source was left scalp laceration. Due to other priorities in patient's care, laceration was not repaired during [facility] ED stay. Early in ED stay, patient had tonic seizure without clonic activity; seizure lasted approximately 20-30 seconds and she gradually became increasingly responsive c/w post-ictal phase and recovery. Per s.o., she has no seizure history. She had a second seizure of same appearance and duration late in ED stay with similar post-ictal phase CT results demonstrate right SDH, fracture of right frontal bone, fracture of right occipital condyle. D/W Dr. Garcia ([facility]), accepts transfer. - Critical Care Time(min): 60 Time Includes: Direct patient care, Review records, Reassess patient, Document care, Coordinate care, Family consult for tx dec, See progress note Data interpretation: Labs, CXR, See progress note Procedures included in critical care time: See progress note Procedures excluded from critical care time: See progress note Departure - Departure Disposition: 02 Transfer Acute Care Hosp Clinical Impression: Subdural hemorrhage, Seizure after head injury Fracture of skull Qualifiers: Encounter type: initial encounter Skull bone/location: frontal bone Fracture type: closed Qualified Code(s): S02.0XXA - Fracture of vault of skull, initial encounter for closed fracture Condition: Critical Discharge Date/Time: 12/19/19 06:29
[2019-12-19] MEDS ORDERED: ONDANSETRON 4 MG/2 ML VIAL IVP STA ×2 (04:34→05:35)
[2019-12-19 04:37] LABS: BASOPHILS # (AUTO) 0.1 10^3/uL (0.0-0.1); BASOPHILS % (AUTO) 0.8 %; EOSINOPHILS # (AUTO) 0.3 10^3/uL (0.0-0.7); EOSINOPHILS % (AUTO) 1.9 %; HGB - HEMOGLOBIN 10.6 g/dL (12.0-16.0); LYMPHOCYTES # (AUTO) 5.2 10^3/uL (1.5-3.5); LYMPHOCYTES % (AUTO) 37.3 %; MEAN CORPUSCULAR HEMOGLOBIN 21.3 pg (27.0-31.0); MEAN CORPUSCULAR HGB CONC 30.5 g/dL (32.0-36.0); MEAN PLATELET VOLUME 9.7 fL (7.9-10.8); MONOCYTES % (AUTO) 6.9 %; NEUTROPHILS # (AUTO) 7.2 10^3/uL (1.5-6.6); NEUTROPHILS % (AUTO) 51.4 %; PLT - PLATELET COUNT 256 10^3/uL (130-450); PT - PROTHROMBIN TIME 11.1 secs (9.9-12.6); RED BLOOD COUNT 4.97 10^6/uL (4.20-5.40); RED CELL DISTRIBUTION WIDTH 16.4 % (12.0-15.0); WHITE BLOOD COUNT 13.9 x10^3/uL (4.8-10.8)
[2019-12-19 04:42] LABS: ALBUMIN 3.7 g/dL (3.2-5.5); ALBUMIN/GLOBULIN RATIO 1.5 (1.0-2.2); BILIRUBIN,TOTAL 0.5 mg/dL (0.2-1.0); CALCIUM 9.1 mg/dL (8.5-10.3); CREATININE 0.5 mg/dL (0.4-1.0); TOTAL PROTEIN 6.2 g/dL (6.7-8.2)
[2019-12-19] MEDS ORDERED: ONDANSETRON 4 MG/2 ML VIAL ONE (04:43)
[2019-12-19] MEDS ORDERED: LORazepam 2 MG/ML VIAL ONE (05:09)
[2019-12-19] MEDS ORDERED: LORazepam 2 MG/ML VIAL IVP STA (05:53)
[2019-12-19] MEDS ORDERED: levETIRAcetam INJ 500 MG in SODIUM CHLORIDE 0.9% 100ML 100 ML IV STA (06:10)
[2019-12-19 06:22] VITALS: BP 103/80
--- NOTE | 2019-12-19 08:00 | CT Report ---
Reason: fall, head injury, LOC Procedure Date: 12/19/2019 Accession Number: [id number] / [id number] Procedure: CT - HEAD WO CPT Code: Final Report FULL RESULT: PROCEDURE: HEAD WO INDICATIONS: fall, head injury, LOC TECHNIQUE: Noncontrast 4.5 mm thick angled axial sections acquired from the foramen magnum to the vertex. For radiation dose reduction, the following was used: automated exposure control, adjustment of mA and/or kV according to patient size. COMPARISON: MRI brain 12/23/[address] head 01/04/2015 FINDINGS: Image quality: Excellent. CSF spaces: Basal cisterns are patent. No extra-axial fluid collections. The ventricles are symmetric in size and shape. Brain: Small subdural hematoma tracking along the right tentorium noted. No intracranial masses. There is cerebral volume loss for age, with resultant ventricular and sulcal prominence. There are periventricular and deep white matter chronic small vessel ischemic changes. There is intracranial internal carotid artery atherosclerosis. Skull and face: Small anterior left parietal craniotomy site noted. Small rounded metallic localizer noted in the left parietal calvarium. Visualized facial bones appear intact, without suspicious lesions. Left frontal-parietal scalp hematoma noted. Sinuses: Visualized sinuses and mastoids are clear. IMPRESSION: Right subdural hematoma tracking along the right alar of the tentorium. Reviewed by: Naina Mccall MD, PhD on 12/19/2019 7:59 AM PDT Approved by: Naina Mccall MD, PhD on 12/19/2019 7:59 AM PDT Station ID: [id number]
--- NOTE | 2019-12-19 08:08 | CT Report ---
Reason: fall, neck pain Procedure Date: 12/19/2019 Accession Number: [id number] / [id number] Procedure: CT - CERVICAL SPINE WO CPT Code: Final Report FULL RESULT: PROCEDURE: CERVICAL SPINE WO INDICATIONS: fall, neck pain TECHNIQUE: Noncontrast 3 mm thick sections acquired from the skull base to the T4 level. Sagittal and coronal reformats were then constructed. For radiation dose reduction, the following was used: automated exposure control, adjustment of mA and/or kV according to patient size. COMPARISON: None. FINDINGS: Image quality: Excellent. Bones: Minimally displaced fracture of the inferior-medial margin of the right occipital condyle. No cervical spine fracture or dislocation. Spine degenerative disc disease and facet arthropathy are noted. Sclerotic lesion noted in the C7 and T4 vertebral bodies concerning for metastatic disease. Visualized superior ribs are intact. Soft tissues: Prevertebral soft tissues are normal in thickness. 1.9 cm partially calcified right thyroid nodule No paravertebral hematomas. No apical pneumothoraces. Patient is status post left pneumonectomy. IMPRESSION: 1. Minimally displaced right occipital condyle fracture. 2. No cervical spine fracture. No acute cervical spine osseous lesion. If there is continued clinical concern for pathology, then MRI should be considered for further evaluation. 3. Partially calcified right thyroid nodule. Recommend thyroid ultrasound for definitive characterization Reviewed by: Naina Mccall MD, PhD on 12/19/2019 8:06 AM PDT Approved by: Naina Mccall MD, PhD on 12/19/2019 8:06 AM PDT Station ID: [id number]
--- NOTE | 2019-12-19 08:21 | CT Report ---
Reason: fall, left facial swelling and tenderness Procedure Date: 12/19/2019 Accession Number: [id number] / [id number] Procedure: CT - MAXILLOFACIAL WO CPT Code: Final Report FULL RESULT: PROCEDURE: MAXILLOFACIAL WO INDICATIONS: fall, left facial swelling and tenderness TECHNIQUE: Noncontrast 1.5 mm thick axial images acquired from the mandible through the frontal sinuses, with coronal and sagittal reformatting. For radiation dose reduction, the following was used: automated exposure control, adjustment of mA and/or kV according to patient size. COMPARISON: None. FINDINGS: Image quality: Excellent. Bones and teeth: Orbital ham are intact. Sinus ham show no fracture or deformity. Nasal bones and septum are intact. Visualized portions of the mandible demonstrate no fractures or subluxation. Zygomatic arches are intact. Pterygoid plates are intact. Visualized portions of the skull base and auditory canals are intact. Minimally displaced fracture involving the posterior-inferior and medial margin of the right occipital condyle. Patient is a dentulous. 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 Sinuses: Paranasal sinuses are aerated, without fluid levels, mucosal thickening, or mucoceles. Mastoid air cells are aerated. Soft tissues: Hematoma/swelling involving the left upper lip and left malar eminence of the facial soft tissues. No enlarged lymph nodes. No soft tissue lacerations or debris. Vascular: Visualized vascular structures appear normal in the absence of contrast. Bony vascular foramina and canals are intact. IMPRESSION: 1. Minimally displaced right occipital condyle fracture. 2. No facial bone fracture. Reviewed by: Naina Mccall MD, PhD on 12/19/2019 8:19 AM PDT Approved by: Naina Mccall MD, PhD on 12/19/2019 8:19 AM PDT Station ID: [id number]
--- NOTE | 2019-12-19 09:03 | XRAY Report ---
Reason: chest pain Procedure Date: 12/19/2019 Accession Number: [id number] / [id number] Procedure: XR - Chest 1 View X-Ray CPT Code: 87200 Final Report FULL RESULT: PROCEDURE: Chest 1 View X-Ray INDICATIONS: chest pain TECHNIQUE: One view of the chest was acquired. COMPARISON: Chest x-ray 02/23/2019 FINDINGS: Surgical changes and devices: None. Lungs and pleura: Surgical changes reflecting left pneumonectomy with volume loss resulting in right to left midline shift. Increased opacity is present at the left base, appearing relatively unchanged. Mediastinum: Mediastinal contours appear normal. Heart size is normal. Bones and chest wall: No suspicious bony lesions. Overlying soft tissues appear unremarkable. Compression fractures at T8 and sclerosis at T7, unchanged. IMPRESSION: Left pneumonectomy changes. Increased left basilar opacity, felt to likely to been present on prior exam. This may represent chronic effusion. Reviewed by: Valeria Krishnamurthy MD on 12/19/2019 9:02 AM PDT Approved by: Valeria Krishnamurthy MD on 12/19/2019 9:02 AM PDT Station ID: [id number]
== END 2019-12-19 06:29 | disposition short-term general hospital (02) ==
LOC: EDUNIT# → ED 04:03
DX: S06.5X9A Traumatic subdural hemorrhage with loss of consciousness of unspecified duration, initial encounter (principal); S02.0XXA Fracture of vault of skull, initial encounter for closed fracture; S02.113A Unspecified occipital condyle fracture, initial encounter for closed fracture; S01.01XA Laceration without foreign body of scalp, initial encounter; W18.39XA Other fall on same level, initial encounter; Y93.89 Activity, other specified; Y92.002 Bathroom of unspecified non-institutional (private) residence as the place of occurrence of the external cause; R56.1 Post traumatic seizures; Z66 Do not resuscitate
CPT/HCPCS: 36415; 70450; 70486; 71045; 72125; 80053; 83690; 85025; 85610; 85730; 86850; 86900; 86901; 96374; 96375; 96376; 99285; 99291; J2060

== ENCOUNTER 2020-02-28 09:34 | Outpatient (CLI) | payer MEDICARE, OTHER ==
--- NOTE | 2020-02-28 16:17 | Ultrasound Report ---
PROCEDURE: Head or Neck Soft Tissue INDICATIONS: ABNORMAL FINDINGS ON DIAGNOSTIC IMAGING OF PRT MS TECHNIQUE: Real time scanning was performed of the thyroid of interest, with image documentation. COMPARISON: Cervical spine radiograph 02/11/[address] 12/30/2014 FINDINGS: Right thyroid lobe measures 3.8 x 1.9 x 1.7 cm and contains 2 dominant solid nodules in the mid and l ower pole, the first measuring 1.4 x 1.3 x 1.2 cm is taller than wide and demonstrates peripheral leon cification,Ti-RADS score 5, and the second measuring 1.4 x 1.3 x 1.3 cm, heterogeneous but isoechoic to thyroid. No internal calcifications. Defined margins are present. Ti- RADS score is 3. The left thyroid lobe measures 4.0 x 1.2 x 1.2 cm and is mildly heterogeneous secondary to multiple t iny cystic areas, the largest measuring 6 mm with internal septation but no calcification. The isthmus is 3 mm in thickness. IMPRESSION: 1. There are 2 dominant right thyroid nodules, both measuring up to 1.4 cm, but one with peripheral c alcification, taller than wide. Peripherally calcified nodule has characteristics which are highly garvey spicious and fine needle aspiration is recommended based on published criteria. This nodule has been present for 5 years without significant size change. 2. Mildly heterogeneous left thyroid lobe. Reviewed by: Jaki Moran MD on 02/28/2020 4:16 PM PDT Approved by: Jaki Moran MD on 02/28/2020 4:16 PM PDT Station ID: [id number]
== END 2020-02-28 09:35 | disposition home or self-care (01) ==
LOC: DI 09:34
PROVIDERS: ATTEND Internal Medicine
DX: E04.2 Nontoxic multinodular goiter (principal)
CPT/HCPCS: 76536

== ENCOUNTER 2020-03-05 23:38 | Emergency (ER) | payer MEDICARE, OTHER ==
--- NOTE | 2020-03-05 23:40 | ED Physician Documentation ---
History of Present Illness - Stated complaint Stated Complaint: N/V/D - History obtained from History obtained from: Patient - Additonal information Additional information: 74-year-old female with a history of lung cancer with metastasis on chemotherapy experiencing worsening nausea and vomiting and diarrhea today Without chest pain abdominal pain syncope or fevers. Review of Systems Constitutional: reports: Reviewed and negative Eyes: reports: Reviewed and negative Ears: reports: Reviewed and negative Nose: reports: Reviewed and negative Throat: reports: Reviewed and negative Cardiac: reports: Reviewed and negative Respiratory: reports: Reviewed and negative GI: reports: Nausea, Vomiting, Diarrhea : reports: Reviewed and negative Skin: reports: Reviewed and negative Musculoskeletal: reports: Reviewed and negative Neurologic: reports: Reviewed and negative Psychiatric: reports: Reviewed and negative Endocrine: reports: Reviewed and negative Immunocompromised: reports: Reviewed and negative PD PAST MEDICAL HISTORY - Past Medical History Cardiovascular: None Respiratory: Other Endocrine/Autoimmune: None GI: None 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 : None HEENT: None Psych: None Musculoskeletal: None, Osteoporosis Derm: None - Past Surgical History 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 Cardiovascular: Lobectomy - Present Medications Home Medications: Ambulatory Orders Medication Instructions Recorded Confirmed Ceritinib [Zykadia] 300 mg PO DAILY 10/13/17 10/06/18 Naltrexone HCl 1 mg PO DAILY 10/06/18 10/06/18 Ondansetron Odt [Zofran] 4 mg TL Q6H PRN #10 tablet 10/06/18 Ondansetron Odt [Zofran Odt] 4 mg TL Q6H PRN #10 tablet 03/06/20 - Allergies Allergies/Adverse Reactions: Allergies Allergy/AdvReac Type Severity Reaction Status Date / Time influenza virus vaccine, Allergy Unknown Verified 12/19/19 04:23 specific [influenza virus vacc,specific] - Social History Does the pt smoke?: No Smoking Status: Never smoker Does the pt drink ETOH?: No Does the pt have substance abuse?: No - Immunizations Immunizations are current?: Yes - POLST Patient has POLST: Yes POLST Status: DNR PD ED PE NORMAL - Vitals Vital signs reviewed: Yes - General General: Alert and oriented X 3, No acute distress, Well developed/nourished - HEENT HEENT: Atraumatic, PERRL, Moist mucous membranes, Pharynx benign, Dentition benign - Neck Neck: Supple, no meningeal sign, No adenopathy, No JVD - Cardiac Cardiac: RRR, No murmur, Strong equal pulses - Respiratory Respiratory: No respiratory distress, Clear bilaterally - Abdomen Abdomen: Normal bowel sounds, Soft, Non tender, Non distended, Other (No midline abdominal pulsatile mass) - Derm Derm: Normal color, Warm and dry, No rash - Extremities Extremities: No deformity, No tenderness to palpate, Normal ROM s pain, No edema, No calf tenderness / cord - Neuro Neuro: Alert and oriented X 3, hospital director 2-12 intact, No motor deficit, No sensory deficit, Normal speech - Psych Psych: Normal mood, Normal affect Results - Vitals Vitals: Vital Signs - 24 hr 03/05/20 03/06/20 03/06/20 23:49 00:27 00:55 Temperature 36.1 C L Heart Rate 86 90 87 Respiratory 16 16 Rate Blood Pressure 142/84 H 138/79 H 126/89 H O2 Saturation 95 97 97 03/06/20 01:15 Temperature Heart Rate 96 Respiratory 17 Rate Blood Pressure 117/70 O2 Saturation 96 Oxygen O2 Source Room air - Labs Labs: Laboratory Tests 03/05/20 03/05/20 03/05/20 23:59 23:59 23:59 WBC 9.9 RBC 4.98 Hgb 11.5 L Hct 36.3 L MCV 72.9 L MCH 23.1 L MCHC 31.7 L RDW 16.9 H Plt Count 212 MPV 11.6 H Neut # (Auto) 6.1 Lymph # (Auto) 2.5 [place] # (Auto) 0.8 Eos # (Auto) 0.4 Baso # (Auto) 0.1 Absolute Nucleated RBC 0.00 Nucleated RBC % 0.0 PT 10.7 INR 0.9 APTT 23.9 L Sodium 136 Potassium 3.4 L Chloride 97 L Carbon Dioxide 26 Anion Gap 13.0 BUN 21 H Creatinine 0.6 Estimated GFR (MDRD) 97 Glucose 128 H Calcium 9.6 Total Bilirubin 0.9 AST 29 ALT 23 Alkaline Phosphatase 186 H Total Creatine Kinase 57 Total Protein 6.6 L Albumin 3.9 Globulin 2.7 Albumin/Globulin Ratio 1.4 Lipase 77 H Ethyl Alcohol < 5.0 PD MEDICAL DECISION MAKING - ED course Complexity details: reviewed old records, reviewed results, re-evaluated patient (01:15, feeling improved. tolerated po challenge, and home worker at bedside. planned discussed to discharge home with close f/u. zofran prescription provided.), considered differential (Dehydration, acute electrolyte abnormality, chemotherapy induced emesis.), d/w patient, d/w family Departure - Departure Disposition: 01 Home, Self Care Clinical Impression: Vomiting Qualifiers: Vomiting type: unspecified Vomiting Intractability: unspecified Nausea pres ence: unspecified Qualified Code(s): R11.10 - Vomiting, unspecified Condition: Stable Instructions: ED Nausea Vomiting Follow-Up: Melony Post MD [Primary Care Provider] - 03/06/20 Prescriptions: Ondansetron Odt [Zofran Odt] 4 mg TL Q6H PRN #10 tablet PRN Reason: Nausea / Vomiting Comments: please follow up with your primary care provider today. Use zofran as needed for nausea.
[2020-03-05] MEDS ORDERED: SODIUM CHLORIDE 0.9% 1,000 ML IV STA (23:51)
[2020-03-05] MEDS ORDERED: ONDANSETRON 4 MG/2 ML VIAL IVP STA (23:51)
[2020-03-06 00:13] LABS: BASOPHILS # (AUTO) 0.1 10^3/uL (0.0-0.1); BASOPHILS % (AUTO) 0.9 %; EOSINOPHILS # (AUTO) 0.4 10^3/uL (0.0-0.7); EOSINOPHILS % (AUTO) 3.8 %; HGB - HEMOGLOBIN 11.5 g/dL (12.0-16.0); LYMPHOCYTES # (AUTO) 2.5 10^3/uL (1.5-3.5); MEAN CORPUSCULAR HEMOGLOBIN 23.1 pg (27.0-31.0); MEAN CORPUSCULAR HGB CONC 31.7 g/dL (32.0-36.0); MEAN CORPUSCULAR VOLUME 72.9 fL (81.0-99.0); MEAN PLATELET VOLUME 11.6 fL (7.9-10.8); MONOCYTES # (AUTO) 0.8 10^3/uL (0.0-1.0); MONOCYTES % (AUTO) 8.2 %; NEUTROPHILS # (AUTO) 6.1 10^3/uL (1.5-6.6); NEUTROPHILS % (AUTO) 61.5 %; PLT - PLATELET COUNT 212 10^3/uL (130-450); RED BLOOD COUNT 4.98 10^6/uL (4.20-5.40); RED CELL DISTRIBUTION WIDTH 16.9 % (12.0-15.0); WHITE BLOOD COUNT 9.9 x10^3/uL (4.8-10.8)
[2020-03-06 00:17] LABS: INR 0.9 (0.8-1.2); PT - PROTHROMBIN TIME 10.7 secs (9.9-12.6)
[2020-03-06 00:23] LABS: ALBUMIN 3.9 g/dL (3.2-5.5); ALBUMIN/GLOBULIN RATIO 1.4 (1.0-2.2); ALKALINE PHOSPHATASE 186 IU/L (42-121); ALT ALANINE AMINOTRANSFERASE 23 IU/L (10-60); AST ASPARTATE AMINOTRANSFERASE 29 IU/L (10-42); BILIRUBIN,TOTAL 0.9 mg/dL (0.2-1.0); BUN - BLOOD UREA NITROGEN 21 mg/dL (6-20); CALCIUM 9.6 mg/dL (8.5-10.3); CARBON DIOXIDE - CO2 26 mmol/L (21-32); CHLORIDE 97 mmol/L (101-111); CK- CREATINE KINASE 57 IU/L (22-269); CREATININE 0.6 mg/dL (0.4-1.0); GLUCOSE 128 mg/dL (70-100); LIPASE 77 U/L (22-51); SODIUM 136 mmol/L (135-145); TOTAL PROTEIN 6.6 g/dL (6.7-8.2)
[2020-03-06 00:25] LABS: PARTIAL THROMBOPLASTIN TIME 23.9 secs (24.9-33.3)
[2020-03-06 01:16] VITALS: BP 117/70
== END 2020-03-06 01:25 | disposition home or self-care (01) ==
LOC: ED 23:38
DX: R11.2 Nausea with vomiting, unspecified (principal); R19.7 Diarrhea, unspecified; C79.9 Secondary malignant neoplasm of unspecified site; Z85.118 Personal history of other malignant neoplasm of bronchus and lung; Z92.21 Personal history of antineoplastic chemotherapy; Z66 Do not resuscitate
CPT/HCPCS: 36415; 80053; 80320; 82550; 83690; 85025; 85610; 85730; 96361; 96374; 99283

== ENCOUNTER 2020-04-16 07:54 | Outpatient (CLI) | payer MEDICARE, OTHER ==
--- NOTE | 2020-04-16 11:06 | Ultrasound Report ---
PROCEDURE: Abdomen Complete INDICATIONS: ABDOMINAL DISTENTION TECHNIQUE: Real-time scanning was performed of the abdominal and retroperitoneal organs, with image documentatio n. COMPARISON: Ultrasound 03/24/2019, CT abdomen/pelvis 11/22/2019. FINDINGS: Liver: Liver is normal in size and homogeneous in echotexture. Gallbladder: Calcified gallstones are noted in the gallbladder. There is no significant gallbladder w all thickening or pericholecystic fluid Biliary ducts: Intrahepatic bile ducts are non-dilated. Extrahepatic bile duct caliber measures 7 m m. Normal is 6-7 mm or less in diameter, or 10 mm or less post-cholecystectomy. Pancreas: A 1.2 x 1.2 x 1.3 cm hypoechoic lesion is seen in the region of pancreatic tail without int ernal vascularity. Spleen: Spleen is normal in size and homogeneous in echotexture. Kidneys: Kidneys are normal in size and echotexture. Right kidney measures 9.1 cm long; left kidney measures 9.5 cm long. No hydronephrosis or nephrolithiasis. No solid masses. A 2 cm simple cyst i s seen in the inferior pole of the right kidney. Aorta: Visualized aorta is normal in caliber at less than 3 cm. Calcified atherosclerotic plaque is noted. Iliacs: Proximal common iliac arteries are normal in caliber at less than 2.5 cm. IVC: Intrahepatic inferior vena cava is patent. Miscellaneous: No free abdominal fluid. IMPRESSION: 1. Hypoechoic lesion in the pancreatic tail measuring 1.2 x 1.2 x 1.3 cm is nonspecific and may repr esent a solid or cystic mass. Recommend MRI of the pancreas with and without contrast versus pancreat ic protocol CT for further evaluation. 2. Cholelithiasis without signs of acute cholecystitis. Reviewed by: Daniel Franklin MD on 04/16/2020 11:05 AM PDT Approved by: Daniel Franklin MD on 04/16/2020 11:05 AM PDT Station ID: [id number]
== END 2020-04-16 07:55 | disposition home or self-care (01) ==
LOC: DI 07:54
PROVIDERS: ATTEND Internal Medicine
DX: R14.0 Abdominal distension (gaseous) (principal); K86.89 Other specified diseases of pancreas; K80.20 Calculus of gallbladder without cholecystitis without obstruction
CPT/HCPCS: 76700

== ENCOUNTER 2020-05-15 01:05 | Emergency (ER) | payer MEDICARE, OTHER, MEDICAID ==
--- NOTE | 2020-05-15 01:40 | ED Physician Documentation ---
PD HPI NVD - Stated complaint Stated Complaint: DIARRHEA - Chief complaint Chief Complaint: Abd Pain - History obtained from History obtained from: Patient, Family - History of Present Illness Timing - onset: Yesterday Timing - details: Gradual onset Pain level max: 2 Pain level now: 0 Associated symptoms: Abdominal pain (occasional/episodic cramping abdominal pain). No: Chest pain Contributing factors: No: Sick contact, Recent antibiotics Improved by: Other (nothing) Worsened by: Other (no exacerbating factors) Similar symptoms before: No diagnosis Recently seen: Not recently seen - Additonal information Additional information: c/o frequent diarrhea since yesterday morning, occasionally associated with abdominal cramping. denies n/v, denies fever Review of Systems Constitutional: denies: Fever, Chills, Sweats Cardiac: reports: Reviewed and negative Respiratory: reports: Reviewed and negative GI: reports: Abdominal Pain, Diarrhea. 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 Cardiovascular: Lobectomy - Present Medications Home Medications: Ambulatory Orders Medication Instructions Recorded Confirmed Ceritinib [Zykadia] 300 mg PO DAILY 10/13/17 10/06/18 Naltrexone HCl 1 mg PO DAILY 10/06/18 10/06/18 Ondansetron Odt [Zofran] 4 mg TL Q6H PRN #10 tablet 10/06/18 Ondansetron Odt [Zofran Odt] 4 mg TL Q6H PRN #10 tablet 03/06/20 - Allergies Allergies/Adverse Reactions: Allergies Allergy/AdvReac Type Severity Reaction Status Date / Time influenza virus vaccine, Allergy Unknown Verified 05/15/20 01:16 specific [influenza virus vacc,specific] - Social History Does the pt smoke?: No Smoking Status: Never smoker Does the pt drink ETOH?: No Does the pt have substance abuse?: No - Immunizations Immunizations are current?: Yes - POLST Patient has POLST: Yes POLST Status: DNR PD ED PE NORMAL - Vitals Vital signs reviewed: Yes - General General: Alert and oriented X 3, No acute distress, Well developed/nourished - HEENT HEENT: Moist mucous membranes - Neck Neck: No bruit - Cardiac Cardiac: RRR, No murmur - Respiratory Respiratory: No respiratory distress, Clear bilaterally - Abdomen Abdomen: Soft, Non tender, Non distended - Derm Derm: Normal color, Warm and dry - Extremities Extremities: No edema - Neuro Neuro: Alert and oriented X 3 Results - Vitals Vitals: Vital Signs - 24 hr 05/15/20 05/15/20 05/15/20 04:49 06:40 07:00 Temperature 37.1 C 37.1 C Heart Rate 81 73 79 Respiratory 16 19 16 Rate Blood Pressure 125/62 124/67 130/75 O2 Saturation 100 100 98 Oxygen O2 Source Room air - Labs Labs: Laboratory Tests 05/15/20 05/15/20 02:01 02:01 WBC 9.8 RBC 4.46 Hgb 10.1 L Hct 32.3 L MCV 72.4 L MCH 22.6 L MCHC 31.3 L RDW 14.6 Plt Count 206 MPV 8.9 Neut # (Auto) 6.8 H Lymph # (Auto) 2.0 [place] # (Auto) 0.8 Eos # (Auto) 0.1 Baso # (Auto) 0.1 Absolute Nucleated RBC 0.00 Nucleated RBC % 0.0 Sodium 128 L Potassium 3.6 Chloride 92 L Carbon Dioxide 23 Anion Gap 13.0 BUN 14 Creatinine 0.4 Estimated GFR (MDRD) 156 Glucose 130 H Calcium 9.1 Total Bilirubin 1.0 AST 49 H ALT 21 Alkaline Phosphatase 471 H Total Protein 5.6 L Albumin 3.5 Globulin 2.0 L Albumin/Globulin Ratio 1.7 Lipase 29 - Rads (name of study) CT A/P Radiology: Prelim report reviewed, See rad report RUQ US Radiology: Prelim report reviewed, See rad report PD MEDICAL DECISION MAKING - ED course Complexity details: reviewed old records, reviewed results, re-evaluated patient, considered differential, d/w patient, d/w family ED course: patient declined analgesics during ED stay. she reported improvement after IV fluids and lomotil. she did not have diarrhea during ED stay and thus not able to provide stool sample. blood tests are reassuring without alarming results (mild hyponatremia, mild anemia noted), and CT and US do not show emergent pathology (gallstones incidentally noted; other findings were also d/w patient and family, including the worsening of bony lesions suspected to be metastatic disease as well as enlarging pancreatic cyst) Departure - Departure Disposition: 01 Home, Self Care Clinical Impression: Diarrhea Condition: Good Instructions: ED Diarrhea Viral Discharge Date/Time: 05/15/20 07:25
[2020-05-15] MEDS ORDERED: SODIUM CHLORIDE 0.9% 1,000 ML IV STA (02:02)
[2020-05-15] MEDS ORDERED: DIPHENOX/ATROPINE 2.5/0.025 MG TABLET PO STA (02:02)
[2020-05-15 02:17] LABS: BASOPHILS # (AUTO) 0.1 10^3/uL (0.0-0.1); BASOPHILS % (AUTO) 0.7 %; EOSINOPHILS # (AUTO) 0.1 10^3/uL (0.0-0.7); EOSINOPHILS % (AUTO) 0.7 %; HGB - HEMOGLOBIN 10.1 g/dL (12.0-16.0); LYMPHOCYTES % (AUTO) 20.4 %; MEAN CORPUSCULAR HEMOGLOBIN 22.6 pg (27.0-31.0); MEAN CORPUSCULAR HGB CONC 31.3 g/dL (32.0-36.0); MEAN CORPUSCULAR VOLUME 72.4 fL (81.0-99.0); MEAN PLATELET VOLUME 8.9 fL (7.9-10.8); MONOCYTES # (AUTO) 0.8 10^3/uL (0.0-1.0); MONOCYTES % (AUTO) 7.7 %; NEUTROPHILS # (AUTO) 6.8 10^3/uL (1.5-6.6); NEUTROPHILS % (AUTO) 69.7 %; PLT - PLATELET COUNT 206 10^3/uL (130-450); RED BLOOD COUNT 4.46 10^6/uL (4.20-5.40); RED CELL DISTRIBUTION WIDTH 14.6 % (12.0-15.0); WHITE BLOOD COUNT 9.8 x10^3/uL (4.8-10.8)
[2020-05-15] MEDS ORDERED: IOVERSOL 320 100 ML VIAL IVP ONE ×2 (02:26→03:17)
[2020-05-15 02:31] LABS: ALBUMIN 3.5 g/dL (3.2-5.5); ALBUMIN/GLOBULIN RATIO 1.7 (1.0-2.2); CALCIUM 9.1 mg/dL (8.5-10.3); CREATININE 0.4 mg/dL (0.4-1.0); TOTAL PROTEIN 5.6 g/dL (6.7-8.2)
[2020-05-15] MEDS ORDERED: ONDANSETRON 4 MG/2 ML VIAL IVP STA (03:10)
[2020-05-15 07:43] VITALS: BP 130/75
--- NOTE | 2020-05-15 08:16 | Ultrasound Report ---
PROCEDURE: Abdomen Limited INDICATIONS: abd. pain TECHNIQUE: Real-time focused scanning was performed of the abdomen, with image documentation. COMPARISON: 04/16/2020 and 03/24/2019 FINDINGS: Liver is normal in size. Liver is diffusely echogenic. No focal hepatic mass lesions. No intrahepatic biatrial dilatation. Multiple mobile gallstones in the gallbladder. Gallbladder wall is at the upper limits of normal to s lightly thickened measuring up to 3.3 mm. No pericholecystic fluid. No sonographic Duong's sign. Common bile duct is likely dilated to 7.6 mm. 1.8 x 1.4 x 1.2 cm hypoechoic lesions noted at the junction of the body/tail of the pancreas which is stable compared to prior exam obtained 04/16/2020. Second 0.6 x 0.5 x 0.5 cm hypoechoic lesion is not ed in the distal body of the pancreas. Pancreatic duct is nondilated measuring 2.6 mm at mid body. Right kidney measures 9.0 cm in long axis. 2.3 x 2.2 x 2.3 cm right renal cyst. IMPRESSION: 1. Cholelithiasis with possible mild gallbladder wall thickening. Findings suspicious for acute shyla cystitis. There is continued clinical concern for cholecystitis, a nuclear medicine HIDA scan should be considered for further evaluation. 2. Echogenic liver. Finding typically represents hepatic steatosis, however finding is nonspecific an d other etiologies including hepatic cirrhosis can produce a similar appearance. Recommend correlatio n with clinical and laboratory data. 3. Hypoechoic foci within the pancreatic body and body-tail junction. Recommend dedicated CT or MRI ( pancreatic protocol) for definitive characterization. Reviewed by: Naina Mccall MD, PhD on 05/15/2020 8:15 AM PST Approved by: Naina Mccall MD, PhD on 05/15/2020 8:15 AM PST Station ID: [id number]
--- NOTE | 2020-05-15 08:55 | CT Report ---
PROCEDURE: Abdomen/Pelvis W INDICATIONS: abd. pain, diarrhea CONTRAST: IV CONTRAST: Optiray 320 ml: 100 PO CONTRAST: *NO PO CONTRAST TECHNIQUE: After the administration of intravenous contrast, 5 mm thick sections acquired from the diaphragms to the symphysis. 5 mm thick coronal and sagittal reformats were acquired. For radiation dose reducti on, the following was used: automated exposure control, adjustment of mA and/or kV according to krystin ent size. COMPARISON: CT abdomen and pelvis dated 11/21/2014, CT chest dated 12/30/2014. FINDINGS: Image quality: Excellent. ABDOMEN: Lung bases: Remote left pneumonectomy. Mediastinal shift to the left. Small focal infiltrate, right m iddle lobe. Heart size is normal. Solid organs: Liver and spleen are normal in size and enhancement. Gallbladder contains multiple st ones. There is mild gallbladder wall thickening. There is mild gallbladder distention. Biliary syste m is non dilated. There is a cystic lesion involving the tail of the pancreas, measuring approximatel y 0.9 x 1.8 cm. Reference image 34/3. No adrenal nodules. Kidneys demonstrate normal size and enhanc ement, without hydronephrosis. Peritoneum and bowel: Bowel loops demonstrate normal wall thickness and caliber. No free fluid or a ir. Nodes and vessels: No retroperitoneal or mesenteric adenopathy by size criteria. Aorta and inferior vena cava are normal in size. Miscellaneous: No ventral hernias. PELVIS: Genitourinary: Bladder wall thickness is normal. Miscellaneous: No inguinal hernias or adenopathy. Bones: Significant interval progression of extensive predominantly sclerotic metastatic disease invol ving the spine and pelvis and ribs. There are now pathologic compression fractures of T8, T9, L1. IMPRESSION: 1. Remote left pneumonectomy. 2. Significant interval progression of extensive bony metastatic disease, predominantly sclerotic. 3. Interval development of pathologic compression fractures of T8, T9, and L1. 4. Gallstones, mild gallbladder distention, mild gallbladder wall thickening. Findings may potentiall y suggest acute cholecystitis. Suggest right upper quadrant ultrasound and clinical correlation. 5. Cystic lesion involving the distal body of the pancreas. Consider IPMN. Consider pancreatic protoc ol MRI. A preliminary report with the above findings was provided at the time of the study by [employer]. Reviewed by: Michael Roger MD on 05/15/2020 8:53 AM PST Approved by: Michael Roger MD on 05/15/2020 8:53 AM PST Station ID: [id number]
== END 2020-05-15 07:25 | disposition home or self-care (01) ==
LOC: ED 01:05
DX: R19.7 Diarrhea, unspecified (principal); E87.1 Hypo-osmolality and hyponatremia; D64.9 Anemia, unspecified; K86.2 Cyst of pancreas; K80.20 Calculus of gallbladder without cholecystitis without obstruction; C79.31 Secondary malignant neoplasm of brain; C79.51 Secondary malignant neoplasm of bone; Z85.118 Personal history of other malignant neoplasm of bronchus and lung; M48.54XA Collapsed vertebra, not elsewhere classified, thoracic region, initial encounter for fracture; M48.56XA Collapsed vertebra, not elsewhere classified, lumbar region, initial encounter for fracture; Z66 Do not resuscitate
CPT/HCPCS: 36415; 74177; 76705; 80053; 83690; 85025; 96374; 99284; A9270; Q9967

== ENCOUNTER 2020-07-28 01:08 | Outpatient (CLI) | payer MEDICARE, OTHER, MEDICAID | END 2020-07-28 01:09 | disposition critical access hospital (66) | LOC: EMS 01:08 | PROVIDERS: ATTEND Surgery | DX: K92.0 Hematemesis (principal); R19.7 Diarrhea, unspecified; R42 Dizziness and giddiness | CPT/HCPCS: A0425; A0427 ==

== ENCOUNTER 2020-07-28 01:25 | Emergency (ER) | payer MEDICARE, OTHER, MEDICAID ==
--- NOTE | 2020-07-28 01:42 | ED Physician Documentation ---
PD HPI NVD - Stated complaint Stated Complaint: N/V/D - History obtained from History obtained from: Patient, EMS - History of Present Illness Timing - onset: How many hours ago (1) Timing - duration: Hours Timing - details: Abrupt onset Pain level max: 0 Pain level now: 0 Associated symptoms: No: Fever Improved by: Other (nothing) Worsened by: Other (no exacerbating factors) Recently seen: Not recently seen - Additonal information Additional information: BIBA. c/o nausea, vomiting, diarrhea x 1 hour. denies pain except chronic bone pain at sites of lung CA metastases. guven 550cc NS and 4 mg zofran en route. she initially had improvement with this but as EMS arrived to ED she again has nausea and vomiting Review of Systems Constitutional: reports: Reviewed and negative Cardiac: reports: Reviewed and negative Respiratory: reports: Reviewed and negative GI: reports: Nausea, Vomiting, Diarrhea. 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 Cardiovascular: Lobectomy - Present Medications Home Medications: Ambulatory Orders Medication Instructions Recorded Confirmed Gabapentin [Neurontin] 100 mg PO TID 07/28/20 07/28/20 Lorlatinib [Lorbrena] 50 mg PO DAILY 07/28/20 07/28/20 - Allergies Allergies/Adverse Reactions: Allergies Allergy/AdvReac Type Severity Reaction Status Date / Time influenza virus vaccine, Allergy Unknown Verified 07/28/20 01:38 specific [influenza virus vacc,specific] - Living Situation Living Situation: reports: With family Living Arrangement: reports: At home PD ED PE NORMAL - Vitals Vital signs reviewed: Yes - General General: Alert and oriented X 3, Well developed/nourished, Other (vomiting at times during H+P) - HEENT HEENT: Moist mucous membranes - Neck Neck: Supple, no meningeal sign - Cardiac Cardiac: No murmur - Respiratory Respiratory: No respiratory distress - Abdomen Abdomen: Soft, Non tender, Non distended - Derm Derm: Normal color, Warm and dry - Extremities Extremities: No edema PD ED PE EXPANDED - Cardiac Cardiac: Tachy, Regular Rhythm - Respiratory Respiratory: Decreased breath sounds, Left upper lobe, Left lower lobe - Abdomen Abdomen: Decreased BS Results - Vitals Vitals: Vital Signs - 24 hr 07/28/20 07/28/20 07/28/20 01:25 01:37 01:40 Temperature 37.3 C 37.3 C Heart Rate 112 H 110 H 112 H Respiratory 27 H 26 H 27 H Rate Blood Pressure 136/109 H 124/93 H 136/109 H O2 Saturation 94 91 L 94 07/28/20 07/28/20 07/28/20 02:07 02:47 03:00 Temperature 36.4 C L Heart Rate 121 H 107 H 116 H Respiratory 30 H 26 H 25 H Rate Blood Pressure 130/81 H 133/86 H 144/74 H O2 Saturation 99 98 100 07/28/20 07/28/20 07/28/20 03:52 04:00 04:30 Temperature 37.2 C 36.4 C L Heart Rate 104 H 90 83 Respiratory 20 18 16 Rate Blood Pressure 113/66 122/81 H 123/80 O2 Saturation 100 100 2 L 07/28/20 07/28/20 05:00 05:20 Temperature 37.2 C Heart Rate 77 80 Respiratory 18 18 Rate Blood Pressure 122/77 122/77 O2 Saturation 100 100 Oxygen O2 Source Room air Oxygen Flow Rate 2 - Labs Labs: Laboratory Tests 07/28/20 07/28/20 07/28/20 01:30 01:55 01:55 WBC 7.4 RBC 3.33 L Hgb 7.8 L Hct 25.0 L MCV 75.1 L MCH 23.4 L MCHC 31.2 L RDW 17.0 H Plt Count 221 MPV 9.4 Neut # (Auto) 4.6 Lymph # (Auto) 1.7 [place] # (Auto) 0.8 Eos # (Auto) 0.1 Baso # (Auto) 0.0 Absolute Nucleated RBC 0.00 Nucleated RBC % 0.0 PT INR APTT Sodium 133 L Potassium 3.6 Chloride 100 L Carbon Dioxide 21 Anion Gap 12.0 BUN 18 Creatinine 0.5 Estimated GFR (MDRD) 120 Glucose 137 H Calcium 8.2 L Total Bilirubin 0.5 AST 45 H ALT 20 Alkaline Phosphatase 711 H Total Protein 5.3 L Albumin 2.9 L Globulin 2.4 Albumin/Globulin Ratio 1.2 Lipase 51 Nasal Adenovirus (PCR) Nasal B. parapertussis DNA (PCR) Nasal Coronavir 229E PCR Nasal Coronavir HKU1 PCR Nasal Coronavir NL63 PCR Nasal Coronavir OC43 PCR Nasal Enterovir/Rhinovir PCR Nasal Influenza B PCR Nasal Influenza A PCR Nasal Parainfluen 1 PCR Nasal Parainfluen 2 PCR Nasal Parainfluen 3 PCR Nasal Parainfluen 4 PCR Nasal RSV (PCR) Nasal B.pertussis DNA PCR Nasal C.pneumoniae (PCR) [place] Human Metapneumo PCR Nasal M.pneumoniae (PCR) Nasal SARS-CoV-2 (PCR) Gastric Fluid pH 4.0 Gastric Occult Blood Negative Blood Type Antibody Screen Crossmatch IS Only 07/28/20 07/28/20 07/28/20 01:55 02:30 02:42 WBC RBC Hgb Hct MCV MCH MCHC RDW Plt Count MPV Neut # (Auto) Lymph # (Auto) [place] # (Auto) Eos # (Auto) Baso # (Auto) Absolute Nucleated RBC Nucleated RBC % PT 11.3 INR 1.0 APTT 23.3 L Sodium Potassium Chloride Carbon Dioxide Anion Gap BUN Creatinine Estimated GFR (MDRD) Glucose Calcium Total Bilirubin AST ALT Alkaline Phosphatase Total Protein Albumin Globulin Albumin/Globulin Ratio Lipase Nasal Adenovirus (PCR) NOT DETECTED Nasal B. parapertussis DNA (PCR) NOT DETECTED Nasal Coronavir 229E PCR NOT DETECTED Nasal Coronavir HKU1 PCR NOT DETECTED Nasal Coronavir NL63 PCR NOT DETECTED Nasal Coronavir OC43 PCR NOT DETECTED Nasal Enterovir/Rhinovir PCR NOT DETECTED Nasal Influenza B PCR NOT DETECTED Nasal Influenza A PCR NOT DETECTED Nasal Parainfluen 1 PCR NOT DETECTED Nasal Parainfluen 2 PCR NOT DETECTED Nasal Parainfluen 3 PCR NOT DETECTED Nasal Parainfluen 4 PCR NOT DETECTED Nasal RSV (PCR) NOT DETECTED Nasal B.pertussis DNA PCR NOT DETECTED Nasal C.pneumoniae (PCR) NOT DETECTED [place] Human Metapneumo PCR NOT DETECTED Nasal M.pneumoniae (PCR) NOT DETECTED Nasal SARS-CoV-2 (PCR) DETECTED A Gastric Fluid pH Gastric Occult Blood Blood Type B POSITIVE Antibody Screen NEGATIVE Crossmatch IS Only See Detail - Rads (name of study) chest xray Radiology: Prelim report reviewed, See rad report PD MEDICAL DECISION MAKING - ED course Complexity details: reviewed old records, reviewed results, re-evaluated patient, considered differential, d/w patient ED course: presents via ambulance for chief c/o nausea and vomiting with lesser concern of diarrhea (medics say patient had large, soft stool shortly before their arrival using her bedside commode). her n/v resolved during ED stay after 2 liters NS and 4mg iv zofran x 2 doses (first dose given by medics). she requested tylenol for her chronic pain associated with bony metastases; ofirmev given and she reported good relief with this. her h/h is noticeably lower than her baseline, a lthough most recent h/h in [facility] is from May 2020. her red blood cell indices are low, s/o at least a component of chronicity to the anemia. her gastroccult test is negative. she denies new fatigue, denies cough and denies dyspnea. initially I considered PRBC transfusion and also discussed the case with Dr. Gross for consideration of admission for transfusion and further observation regarding control of nausea and vomiting. Dr. Gross opines that transfusion at current h/h is unnecessary and recommends d/c if n/v controlled. as noted above, n/v was indeed controlled following completion of infusion of 2nd liter NS and second zofran dose given. respiratory panel including COVID was obtained in anticipation of admission, and COVID test resulted positive. this is likely an incidental finding and result does not manager of change at this time. patient is in NAD at time of discharge and she says she is comfortable with d/c home. ED RN informed family member of test results including COVID test and need for quarantine and isolation Departure - Departure Disposition: 01 Home, Self Care Clinical Impression: COVID-19, Vomiting Condition: Good Instructions: ED Nausea Vomiting, COVID-19 [facility] Department Statement Comments: You have tested positive for COVID-19. Please follow the instructions for quarantine according to the CDC and [facility] of Health websites for COVID-19. https://www.cdc.gov/coronavirus and https://www.coronavirus.[place].gov/ Discharge Date/Time: 07/28/20 05:35
[2020-07-28] MEDS ORDERED: ONDANSETRON 4 MG/2 ML VIAL IVP STA (01:43)
[2020-07-28] MEDS ORDERED: SODIUM CHLORIDE 0.9% 1,000 ML IV STA ×2 (01:43→01:51)
[2020-07-28 01:45] LABS: GASTROCCULT Negative (Negative)
[2020-07-28 02:02] LABS: BASOPHILS % (AUTO) 0.4 %; EOSINOPHILS # (AUTO) 0.1 10^3/uL (0.0-0.7); EOSINOPHILS % (AUTO) 1.9 %; HGB - HEMOGLOBIN 7.8 g/dL (12.0-16.0); LYMPHOCYTES # (AUTO) 1.7 10^3/uL (1.5-3.5); LYMPHOCYTES % (AUTO) 22.3 %; MEAN CORPUSCULAR HEMOGLOBIN 23.4 pg (27.0-31.0); MEAN CORPUSCULAR HGB CONC 31.2 g/dL (32.0-36.0); MEAN CORPUSCULAR VOLUME 75.1 fL (81.0-99.0); MEAN PLATELET VOLUME 9.4 fL (7.9-10.8); MONOCYTES # (AUTO) 0.8 10^3/uL (0.0-1.0); MONOCYTES % (AUTO) 10.9 %; NEUTROPHILS # (AUTO) 4.6 10^3/uL (1.5-6.6); NEUTROPHILS % (AUTO) 62.6 %; PLT - PLATELET COUNT 221 10^3/uL (130-450); RED BLOOD COUNT 3.33 10^6/uL (4.20-5.40); WHITE BLOOD COUNT 7.4 x10^3/uL (4.8-10.8)
[2020-07-28 02:07] LABS: PT - PROTHROMBIN TIME 11.3 secs (9.9-12.6)
[2020-07-28 02:15] LABS: ALBUMIN 2.9 g/dL (3.2-5.5); ALBUMIN/GLOBULIN RATIO 1.2 (1.0-2.2); BILIRUBIN,TOTAL 0.5 mg/dL (0.2-1.0); CALCIUM 8.2 mg/dL (8.5-10.3); CREATININE 0.5 mg/dL (0.4-1.0); PARTIAL THROMBOPLASTIN TIME 23.3 secs (24.9-33.3); TOTAL PROTEIN 5.3 g/dL (6.7-8.2)
[2020-07-28] MEDS ORDERED: ACETAMINOPHEN 1,000 MG/100 ML 100 ML IV STA (02:16)
[2020-07-28 03:37] LABS: C. PNEUMONIAE- RESP PCR PANEL NOT DETECTED
[2020-07-28 05:05] VITALS: BP 122/77
--- NOTE | 2020-07-28 08:34 | XRAY Report ---
PROCEDURE: Chest 1 View X-Ray INDICATIONS: dyspnea TECHNIQUE: One view of the chest was acquired. COMPARISON: Multiple prior one view ON 2 view chest plain films reviewed, most recently 2 view chest 02/20/2020 FINDINGS: Surgical changes and devices: Prior left thoracotomy and presumed left lung resection by morphology. Interstitial prominence right lung is noted, and the film technique is relatively light. A slight deg ree of pulmonary edema could be superimposed.. Lungs and pleura: No pleural effusions or pneumothorax. Lungs are abnormal, with interstitial promi nence on the right and absent left lung, with prominent deviation of the mediastinum from right to le ft. The film technique is light, mild pulmonary edema could be superimposed.. Mediastinum: Mediastinal contours appear normal. Heart size cannot be accurately assessed due to le ft thoracotomy with left lung resection and deviation of the mediastinal structures leftward, chronic ally.. Bones and chest wall: No suspicious bony lesions. Overlying soft tissues appear unremarkable. IMPRESSION: Presumed left pneumonectomy, deviation of the mediastinal structures from right to left. Chronic inte rstitial prominence right lung. It is possible that a slight degree of pulmonary edema is superimpose d. The heart size cannot be accurately assessed due to the chronic postpneumonectomy mediastinal shif t noted above. Reviewed by: Tyrese Lance MD on 07/28/2020 8:32 AM PST Approved by: Tyrese Lance MD on 07/28/2020 8:32 AM PST Station ID: [id number]
== END 2020-07-28 05:35 | disposition home or self-care (01) ==
LOC: EDUNIT# → SUPCPDRO 01:25 → ED 01:25
DX: U07.1 COVID-19 (principal); R11.2 Nausea with vomiting, unspecified; R19.7 Diarrhea, unspecified; G89.3 Neoplasm related pain (acute) (chronic); C79.51 Secondary malignant neoplasm of bone; Z85.118 Personal history of other malignant neoplasm of bronchus and lung; D64.9 Anemia, unspecified
CPT/HCPCS: 36415; 71045; 80053; 83690; 85025; 85610; 85730; 87631; 96374; 96375; 99284; 99285; J0131; 0202U; 86850; 86900; 86901; 86920

== ENCOUNTER 2020-07-28 19:45 | Inpatient (IN) | payer MEDICARE, OTHER, MEDICAID ==
--- NOTE | 2020-07-28 21:05 | ED Physician Documentation ---
PD HPI NVD - Stated complaint Stated Complaint: DIARRHEA,C+ - Chief complaint Chief Complaint: Abd Pain - History obtained from History obtained from: Patient, Family () - History of Present Illness Timing - onset: How many days ago (2-3) Timing - duration: Days (2-3) Timing - details: Abrupt onset (She states onset 2 to 3 days ago of generalized weakness associated with some nausea and diarrhea. She was seen in the ER during the night last night and given some IV fluids and felt improved enough to try going home. She did test Covid positive but did not really have respiratory symptoms.), Still present Associated symptoms: Loss of appetite (due to nausea), Other (she is having some cough and mild dyspnea today. Has increased diarrhea, going about 7 times today. Denies blood in stool. Having general weakness and unable to stand/walk in her own this evening.). No: Fever, Chest pain Contributing factors: Sick contact ( with cough and dyspnea, but no diarrhea/intestinal symptoms.) Improved by: No: Eating Worsened by: No: Eating Similar symptoms before: Has not had sx before Recently seen: Emergency Dept (last night (1 days ago) for the diarrhea and weakness.) Review of Systems Constitutional: reports: Fatigue. denies: Fever, Chills, Myalgias Nose: denies: Rhinorrhea / runny nose, Congestion Throat: denies: Sore throat Cardiac: denies: Chest pain / pressure Respiratory: reports: Dyspnea (mild starting today), Cough (mild today). denies: Wheezing GI: reports: Abdominal Pain (intermittent cramping; no pain on arrival here), Nausea, Diarrhea. denies: Abdominal Swelling, Vomiting, Bloody / black stool : denies: Dysuria Musculoskeletal: denies: Back pain Neurologic: reports: Generalized weakness. 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 : None HEENT: None Psych: None Musculoskeletal: Osteoporosis Derm: None - Past Surgical History Past Surgical History: Yes /SUPERVISOR PERSONNEL CLERKS: section Cardiovascular: Lobectomy - Present Medications Home Medications: Ambulatory Orders Medication Instructions Recorded Confirmed Gabapentin [Neurontin] 100 mg PO TID 07/28/20 07/28/20 Lorlatinib [Lorbrena] 50 mg PO DAILY 07/28/20 07/28/20 - Allergies Allergies/Adverse Reactions: Allergies Allergy/AdvReac Type Severity Reaction Status Date / Time influenza virus vaccine, Allergy Unknown Verified 07/28/20 01:38 specific [influenza virus vacc,specific] - Social History Does the pt smoke?: No Smoking Status: Never smoker Does the pt drink ETOH?: No Does the pt have substance abuse?: No - Immunizations Immunizations are current?: Yes - POLST Patient has POLST: Yes POLST Status: DNR PD ED PE NORMAL - Vitals Vital signs reviewed: Yes - General General: Alert and oriented X 3, Well developed/nourished - HEENT HEENT: Pharynx benign. No: Moist mucous membranes - Neck Neck: Supple, no meningeal sign, No adenopathy - Cardiac Cardiac: No murmur. No: RRR (regular but tachycardic) - Respiratory Respiratory: No: Clear bilaterally (minimal exp wheezing noted. No work of breathing. No coarse sounds. ) - Abdomen Abdomen: Soft, Non tender. No: Normal bowel sounds (diminished) - Back Back: No CVA TTP - Derm Derm: Normal color, Warm and dry - Extremities Extremities: No tenderness to palpate, Normal ROM s pain, No edema, No calf tenderness / cord - Neuro Neuro: Alert and oriented X 3, No motor deficit, Normal speech Results - Vitals Vitals: Vital Signs - 24 hr 07/28/20 07/28/20 07/28/20 20:21 20:30 22:04 Temperature 37 C 37.2 C Heart Rate 108 H 114 H Respiratory 28 H 20 Rate Blood Pressure 152/89 H 166/89 H O2 Saturation 91 L 97 100 07/29/20 00:00 Temperature 37.0 C Heart Rate 106 H Respiratory 20 Rate Blood Pressure 159/105 H O2 Saturation 99 Oxygen O2 Source Nasal cannula - Labs Labs: Laboratory Tests 07/28/20 07/28/20 20:30 21:45 WBC 8.5 RBC 3.71 L Hgb 8.5 L Hct 27.2 L MCV 73.3 L MCH 22.9 L MCHC 31.3 L RDW 17.4 H Plt Count 268 MPV 10.1 Neut # (Auto) 5.4 Lymph # (Auto) 2.1 [place] # (Auto) 0.9 Eos # (Auto) 0.0 Baso # (Auto) 0.0 Absolute Nucleated RBC 0.00 Nucleated RBC % 0.0 Sodium 137 Potassium 3.7 Chloride 104 Carbon Dioxide 22 Anion Gap 11.0 BUN 14 Creatinine 0.4 Estimated GFR (MDRD) 155 Glucose 110 H Calcium 8.6 Magnesium 1.8 Total Bilirubin 0.7 AST 39 ALT 20 Alkaline Phosphatase 686 H Total Protein 5.4 L Albumin 3.0 L Globulin 2.4 Albumin/Globulin Ratio 1.3 Lipase 56 H - Rads (name of study) chest xray Radiology: Prelim report reviewed, EMP read contemporaneously (prior left pneumonectomy. RIght lung with patchy ground glass appearance c/w pneumonia. ), See rad report PD MEDICAL DECISION MAKING - ED course Complexity details: re-evaluated patient (Her heart rate is improved after IV fluids. Her nausea has decreased. Blood pressure remains good. However her oxygenation is low at the 88 to 89% on room air. She does not normally use oxygen at home. This likely is an effect of developing pneumonitis from the virus. ), considered differential, d/w patient, d/w senior product consultant (hospitalist) ED course: Still some diarrhea here in the ER. Her hydration level is improved with IV fluids. Her oxygenation however is slightly low and she appears to be developing increased lung infiltrates on the right which is her only lung given a prior left lobectomy for cancer. I feel she will need further care in the hospital. Departure - Departure Disposition: 66 [facility] DC/Xfer Clinical Impression: Acute pneumonia, COVID-19, Dehydration, Generalized weakness, Gastroenteritis, Hypoxia Condition: Stable Record reviewed to determine appropriate education?: Yes
[2020-07-28] MEDS ORDERED: ONDANSETRON 4 MG/2 ML VIAL IVP STA (21:30)
[2020-07-28] MEDS ORDERED: SODIUM CHLORIDE 0.9% 1,000 ML IV STA (21:30)
[2020-07-28 21:35] LABS: BASOPHILS % (AUTO) 0.4 %; EOSINOPHILS % (AUTO) 0.4 %; HGB - HEMOGLOBIN 8.5 g/dL (12.0-16.0); LYMPHOCYTES # (AUTO) 2.1 10^3/uL (1.5-3.5); LYMPHOCYTES % (AUTO) 24.1 %; MEAN CORPUSCULAR HEMOGLOBIN 22.9 pg (27.0-31.0); MEAN CORPUSCULAR HGB CONC 31.3 g/dL (32.0-36.0); MEAN CORPUSCULAR VOLUME 73.3 fL (81.0-99.0); MEAN PLATELET VOLUME 10.1 fL (7.9-10.8); MONOCYTES # (AUTO) 0.9 10^3/uL (0.0-1.0); MONOCYTES % (AUTO) 10.4 %; NEUTROPHILS # (AUTO) 5.4 10^3/uL (1.5-6.6); NEUTROPHILS % (AUTO) 63.6 %; PLT - PLATELET COUNT 268 10^3/uL (130-450); RED BLOOD COUNT 3.71 10^6/uL (4.20-5.40); RED CELL DISTRIBUTION WIDTH 17.4 % (12.0-15.0); WHITE BLOOD COUNT 8.5 x10^3/uL (4.8-10.8)
[2020-07-28 22:00] LABS: ALBUMIN/GLOBULIN RATIO 1.3 (1.0-2.2); BILIRUBIN,TOTAL 0.7 mg/dL (0.2-1.0); CALCIUM 8.6 mg/dL (8.5-10.3); CREATININE 0.4 mg/dL (0.4-1.0); MAGNESIUM 1.8 mg/dL (1.7-2.8); TOTAL PROTEIN 5.4 g/dL (6.7-8.2)
[2020-07-28] MEDS ORDERED: LACTATED RINGERS 1,000 ML IV STA (22:12)
[2020-07-28] MEDS ORDERED: LOPERAMIDE 2 MG CAPSULE PO STA (23:13)
[2020-07-28] MEDS ORDERED: MORPHINE 2 MG/ML CARPUJECT IVP STA (23:52)
[2020-07-28] MEDS ORDERED: ACETAMINOPHEN 325 MG TABLET PO STA (23:52)
[2020-07-29] MEDS ORDERED: DIPHENOX/ATROPINE 2.5/0.025 MG TABLET PO STA (00:37)
[2020-07-29] MEDS ORDERED: PROCHLORPERAZINE 10 MG/2 ML VIAL IVP PRN (02:48)
[2020-07-29] MEDS ORDERED: ONDANSETRON 4 MG/2 ML VIAL IVP PRN (02:48)
[2020-07-29] MEDS ORDERED: D5NS W/20 MEQ KCL 1,000 ML IV SCH ×2 (03:00→08:14)
[2020-07-29] MEDS: SODIUM CHLORIDE FLUSH 0.9% 10 ML SYRINGE IVP SCH ×2 (04:08→16:25)
[2020-07-29 05:44] LABS: BASOPHILS % (AUTO) 0.3 %; EOSINOPHILS # (AUTO) 0.1 10^3/uL (0.0-0.7); EOSINOPHILS % (AUTO) 0.9 %; LYMPHOCYTES # (AUTO) 1.6 10^3/uL (1.5-3.5); LYMPHOCYTES % (AUTO) 26.7 %; MEAN CORPUSCULAR HEMOGLOBIN 22.9 pg (27.0-31.0); MEAN CORPUSCULAR VOLUME 76.1 fL (81.0-99.0); MEAN PLATELET VOLUME 9.8 fL (7.9-10.8); MONOCYTES # (AUTO) 0.7 10^3/uL (0.0-1.0); MONOCYTES % (AUTO) 12.1 %; NEUTROPHILS # (AUTO) 3.4 10^3/uL (1.5-6.6); NEUTROPHILS % (AUTO) 58.8 %; PLT - PLATELET COUNT 230 10^3/uL (130-450); RED BLOOD COUNT 3.06 10^6/uL (4.20-5.40); RED CELL DISTRIBUTION WIDTH 17.7 % (12.0-15.0); WHITE BLOOD COUNT 5.8 x10^3/uL (4.8-10.8)
[2020-07-29 06:07] LABS: ALBUMIN 2.8 g/dL (3.2-5.5); ALBUMIN/GLOBULIN RATIO 1.2 (1.0-2.2); BILIRUBIN,TOTAL 0.3 mg/dL (0.2-1.0); CALCIUM 7.9 mg/dL (8.5-10.3); CREATININE 0.5 mg/dL (0.4-1.0); MAGNESIUM 1.9 mg/dL (1.7-2.8); TOTAL PROTEIN 5.1 g/dL (6.7-8.2)
--- NOTE | 2020-07-29 08:56 | XRAY Report ---
PROCEDURE: Chest 1 View X-Ray INDICATIONS: weakness; COVID positive TECHNIQUE: One view of the chest was acquired. COMPARISON: 02/20/2020, 07/28/2020 at 3:52 AM FINDINGS: Surgical changes and devices: Surgical changes of probable left pneumonectomy with surgical clips pro jecting in the left hilar region.. Lungs and pleura: No pneumothorax. New fluffy alveolar opacities in the right mid and lower periphera l lung zones as well as strand-like perihilar opacities. There is complete opacification of the left hemithorax. Mediastinum: Chronic leftward shift of the mediastinal structures. Heart is not seen, obscured by th e left hemithorax shadow. Bones and chest wall: No suspicious bony lesions. Overlying soft tissues appear unremarkable. IMPRESSION: 1. Development of moderate patchy peripheral and central alveolar opacities in the right mid to lower lung. 2. Chronic changes of left pneumonectomy. 3. Concordant with preliminary report. Reviewed by: Jaki Moran MD on 07/29/2020 8:55 AM PST Approved by: Jaki Moran MD on 07/29/2020 8:55 AM PST Station ID: [id number]
[2020-07-29] MEDS ORDERED: SODIUM CHLORIDE 0.9% 500 ML IV ONE (09:21)
[2020-07-29] MEDS: ENOXAPARIN 40 MG/0.4 ML SYRINGE SUBQ SCH (09:26)
[2020-07-29] MEDS: FAMOTIDINE 20 MG/2 ML VIAL IVP SCH ×2 (09:26→20:47)
[2020-07-29] MEDS: POTASSIUM CHLOR 10 MEQ/100 ML 10 MEQ/100 ML BAG IV SCH ×4 (09:28→20:47)
[2020-07-29] MEDS ORDERED: REMDESIVIR 100MG VIAL 200 MG in SODIUM CHLORIDE 0.9% 250 ML IV ONE (09:30)
--- NOTE | 2020-07-29 09:32 | HISTORY & PHYSICAL EXAMINATION ---
DATE OF SERVICE: 07/29/2020 Physician: Leesa Gross MD HISTORY OF PRESENT ILLNESS: This is a 75-year-old white female with a history of lung cancer with metastasis, for which she had a lobectomy and takes chemotherapy. She has presented several times with nausea, vomiting and diarrhea, has anemia, is followed at the [facility]. The patient presented yesterday with complaints of nausea, vomiting, and diarrhea that started suddenly 1 hour before presentation. In the ER yesterday, she was found to have a hemoglobin of 7.8, her usual is about 10. She tested positive for COVID on the [employer], but she had no respiratory complaints whatsoever, was not dyspneic, and saturating well on room air, and chest x-ray was unremarkable. She received Zofran and IV fluids and was sent home to take 6 Zofran p.r.n. She came back in less than 24 hours with incessant nausea and vomiting, unable to keep anything down, and large volume of diarrhea and feeling weak. In the ER, her saturations on room air were 91% and then down as low as 88%. Chest x- ray today shows bilateral ground-glass appearance opacities, and she is being admitted for COVID pneumonia as well as nausea, vomiting and diarrhea, dehydration, and weakness. PAST MEDICAL HISTORY: Lung cancer with metastasis, on chemotherapy, anemia. ALLERGIES: INFLUENZA VACCINE. MEDICATIONS: Gabapentin and Lorbrena daily. REVIEW OF SYSTEMS: She has not had a fever at home that she knows of. She did not complain of a cough or noticeable shortness of breath but had a higher respiratory rate today than yesterday. A comprehensive review of systems was performed and the pertinent positives are listed, the rest are negative. FAMILY HISTORY: Noncontributory. SOCIAL HISTORY: She is a nonsmoker, who never smoked, drinks no alcohol, uses no illicit drugs. She has a POLST form, and her desired code status is DNR. PHYSICAL EXAM GENERAL: Thin, frail, female. She is lying in the left lateral decubitus position, curled up in a ball. VITAL SIGNS: Blood pressure 106/57, heart rate 114, afebrile, and room air saturation 100% initially, then down to 91% and 88% on room air. HEENT: Shows dry oral mucosa and she appears fatigued. CHEST: No rales or wheezes. HEART: Heart sounds are distant. ABDOMEN: Soft. EXTREMITIES: No clubbing, cyanosis, or edema. NEUROLOGIC: Grossly intact. LABORATORY/DATA Sodium 137, potassium 3.7, BUN 14, creatinine 0.4, magnesium 1.8, normal AST and ALT, alkaline phosphatase is up at 686. Albumin down at 3, lipase elevated at 56. White blood count 8.5, hemoglobin 8.5, RDW 17, and platelet count 268. No INR was done. No EKG was done. IMAGING: Chest x-ray showed moderate patchy consolidation of ground glass in the right lung base. IMPRESSION/DIAGNOSES 1. Acute respiratory failure with hypoxia. 2. COVID pneumonia. 3. Nausea and vomiting. 4. Diarrhea. 5. Dehydration. 6. Anemia. 7. Lung cancer with metastasis. 8. Elevated alkaline phosphatase. 9. Weakness. PLAN: Admit the patient to inpatient status on the Hospitalist service. Begin IV fluids for rehydration, continue with antiemetics, order a clear liquid diet, to try if she can tolerate this. C. difficile from a stool specimen has been ordered, since the diarrhea is out of proportion to her other COVID symptoms, and will await this result. She will require infectious isolation because of the COVID as well as waiting for C. difficile results. Depending on the severity of her pulmonary status, we will consider starting Remdesivir and Decadron. Supplemental oxygen will be ordered and p.r.n. inhalers if needed. Follow her CBC regarding the anemia and plan transfusion if hemoglobin goes under 7. Her Gabapentin will be continued. There will need to be determination if the chemotherapy medication should be continued. Follow the serum Alk Phos level, and if it remains elevated will obtain CT abdomen/pelvis, preferably with contrast, when LIVE improved. DEEP VENOUS PROPHYLAXIS: Pharmacotherapy with Lovenox, which will also be appropriate during the COVID pneumonia. CODE STATUS: DNR. ATTESTATION: Patient is expected to be discharged or transferred to another facility within 96 hours: Yes. cc: Dr. Post TD: 07/29/2020 06:29 MOHINDER
[2020-07-29] MEDS: ACETAMINOPHEN 325 MG TABLET PO PRN ×3 (11:58→22:13)
[2020-07-29] MEDS: MULTIVITAMIN W/MINERALS TABLET PO SCH (11:58)
[2020-07-29] MEDS: DEXAMETHASONE 4 MG/ML VIAL IVP SCH (11:58)
[2020-07-29] MEDS: SODIUM CHLORIDE FLUSH 0.9% 10 ML SYRINGE IVP PRN (11:59)
--- NOTE | 2020-07-29 14:17 | CONSULTATION NOTE ---
Consultation Report: Called to place second line for difficult IV placement. A #20G IV was started to the left saphenous vein x1 attempt. Patient tolerated well.
--- NOTE | 2020-07-29 15:00 | PROVIDER PROGRESS NOTE ---
Subjective - Prog Note Date Prog Note Date: 07/29/20 - Subjective Pt reports feeling: No change Subjective: Patient still present generalized weakness, She reported she has no appetite. She denies fever, chest pain. She reported her nausea and vomiting is better, Diarrhea is controlled. Patient's hemoglobin is 7.0, patient will have 2 units blood transfusion. Current Medications - Current Medications Current Medications: Active Medications Acetaminophen (Acetaminophen 325 Mg Tablet) 650 mg PO Q4HR PRN PRN Reason: Pain or Fever > 38C (100.4F) Last Admin: 07/29/20 11:58 Dose: 650 mg Documented by: Dexamethasone (Dexamethasone 4 Mg/Ml Vial) 6 mg IVP DAILY [facility] Last Admin: 07/29/20 11:58 Dose: 6 mg Documented by: Enoxaparin Sodium (Enoxaparin 40 Mg/0.4 Ml Syringe) 40 mg SUBQ DAILY [facility] Last Admin: 07/29/20 09:26 Dose: 40 mg Documented by: Famotidine (Famotidine 20 Mg/2 Ml Vial) 20 mg IVP BID [facility] Last Admin: 07/29/20 09:26 Dose: 20 mg Documented by: Potassium Chloride/Dextrose/Sod Cl () 1,000 mls @ 83.3 mls/hr IV .Q12H1M [facility] Last Infusion: 07/29/20 14:58 Dose: 83.3 mls/hr Documented by: Remdesivir 100 mg/ Sodium (Chloride) 100 mls @ 200 mls/hr IV DAILY [facility] Stop: 08/02/20 09:29 Multivitamins/Minerals (Multivitamin W/Minerals Tablet) 1 tab PO DAILYWM [facility] Last Admin: 07/29/20 11:58 Dose: 1 tab Documented by: Ondansetron HCl (Ondansetron 4 Mg/2 Ml Vial) 4 mg IVP Q6HR PRN PRN Reason: Nausea / Vomiting Prochlorperazine Edisylate (Prochlorperazine 10 Mg/2 Ml Vial) 10 mg IVP Q6HR PRN PRN Reason: Nausea / Vomiting Sodium Chloride (Sodium Chloride Flush 0.9% 10 Ml Syringe) 10 ml IVP PRN PRN PRN Reason: NEEDED PER PROVIDER ORDERS Last Admin: 07/29/20 11:59 Dose: 10 ml Documented by: Sodium Chloride (Sodium Chloride Flush 0.9% 10 Ml Syringe) 10 ml IVP 0100,0900,1700 [facility] Last Admin: 07/29/20 04:08 Dose: 10 ml Documented by: Gabapentin [Neurontin] 100 mg PO TID 07/28/20 Lorlatinib [Lorbrena] 50 mg PO DAILY 07/28/20 Objective - Vital Signs/Intake & Output Vital Signs: Vital Signs x48h Temp Pulse Pulse Resp BP BP Pulse Ox 07/29/20 12:45 36.9 C 110 H 26 H 144/80 H 07/29/20 12:30 36.9 C 105 H 26 H 140/70 H 07/29/20 12:16 108 H 24 82/59 L 99 07/29/20 07:39 37.2 C 99 25 H 153/86 H 100 07/29/20 07:02 36.6 C 67 16 113/66 100 Intake & Output: Intake & Output 07/26/20 07/27/20 07/28/20 07/29/20 23:59 23:59 23:59 23:59 Intake Total 1000 2621.140 Output Total 500 1000 Balance 500 1621.140 - Objective General Appearance: positive: Alert, Mild distress. negative: Lethargic Eyes Bilateral: positive: Normal inspection, PERRL, No lid inflammation ENT: positive: ENT inspection nml, No signs of dehydration. negative: Purulent nasal drainage Neck: positive: Nml inspection, Trachea midline. negative: Thyromegaly, Tracheal deviation Respiratory: positive: Chest non-tender, No respiratory distress, Rhonchi. negative: Breath sounds nml, Wheezes, Rales Cardiovascular: positive: Regular rate & rhythm, No murmur. negative: Tachycardia, Bradycardia, Systolic murmur, Diastolic murmur Peripheral Pulses: 2+ Radial (R), 2+ Radial (L) Abdomen: positive: Non-tender, No organomegaly. negative: Tenderness, Guarding, Rebound Back: positive: Nml inspection Skin: positive: Color nml, Warm, Dry. negative: Cyanosis, Diaphoresis, Pallor Extremities: positive: Non-tender, Nml appearance. negative: Calf tenderness Neurologic/Psychiatric: positive: Oriented x3, Motor nml, Sensation nml, Mood/affect nml. negative: Weakness, Sensory loss, Facial droop, Slurred/abnml speech, Depressed mood/affect - Lab Results Fish Bones: 07/29/20 05:14 07/29/20 05:14 Other Labs: Lab Results x24hrs 07/29/20 07/29/20 07/29/20 Range/Units 08:55 07:50 05:14 WBC (4.8-10.8) x10^3/uL RBC (4.20-5.40) 10^6/uL Hgb (12.0-16.0) g/dL Hct (37.0-47.0) % MCV (81.0-99.0) fL MCH (27.0-31.0) pg MCHC (32.0-36.0) g/dL RDW (12.0-15.0) % Plt Count (130-450) 10^3/uL MPV (7.9-10.8) fL Neut # (Auto) (1.5-6.6) 10^3/uL Lymph # (Auto) (1.5-3.5) 10^3/uL [place] # (Auto) (0.0-1.0) 10^3/uL Eos # (Auto) (0.0-0.7) 10^3/uL Baso # (Auto) (0.0-0.1) 10^3/uL Absolute Nucleated RBC x10^3/uL Nucleated RBC % /100WBC Sodium (135-145) mmol/L Potassium (3.5-5.0) mmol/L Chloride (101-111) mmol/L Carbon Dioxide (21-32) mmol/L Anion Gap (6-13) BUN (6-20) mg/dL Creatinine (0.4-1.0) mg/dL Estimated GFR (MDRD) (>89) Glucose (70-100) mg/dL Calcium (8.5-10.3) mg/dL Magnesium (1.7-2.8) mg/dL Iron (28-170) ug/dL TIBC (250-450) ug/dL % Saturation (20-50) % Transferrin (192-382) mg/dL Total Bilirubin (0.2-1.0) mg/dL AST (10-42) IU/L ALT (10-60) IU/L Alkaline Phosphatase (42-121) IU/L Total Protein (6.7-8.2) g/dL Albumin (3.2-5.5) g/dL Globulin (2.1-4.2) g/dL Albumin/Globulin Ratio (1.0-2.2) Lipase 35 (22-51) U/L Vitamin B12 (180-914) pg/mL Blood Type B POSITIVE Cancelled Antibody Screen NEGATIVE Cancelled Crossmatch IS Only See Detail See Detail 07/29/20 07/29/20 07/29/20 Range/Units 05:14 05:14 05:14 WBC 5.8 (4.8-10.8) x10^3/uL RBC 3.06 L (4.20-5.40) 10^6/uL Hgb 7.0 L* (12.0-16.0) g/dL Hct 23.3 L (37.0-47.0) % MCV 76.1 L (81.0-99.0) fL MCH 22.9 L (27.0-31.0) pg MCHC 30.0 L (32.0-36.0) g/dL RDW 17.7 H (12.0-15.0) % Plt Count 230 (130-450) 10^3/uL MPV 9.8 (7.9-10.8) fL Neut # (Auto) 3.4 (1.5-6.6) 10^3/uL Lymph # (Auto) 1.6 (1.5-3.5) 10^3/uL [place] # (Auto) 0.7 (0.0-1.0) 10^3/uL Eos # (Auto) 0.1 (0.0-0.7) 10^3/uL Baso # (Auto) 0.0 (0.0-0.1) 10^3/uL Absolute Nucleated RBC 0.00 x10^3/uL Nucleated RBC % 0.0 /100WBC Sodium 135 (135-145) mmol/L Potassium 3.2 L (3.5-5.0) mmol/L Chloride 107 (101-111) mmol/L Carbon Dioxide 23 (21-32) mmol/L Anion Gap 5.0 L (6-13) BUN 12 (6-20) mg/dL Creatinine 0.5 (0.4-1.0) mg/dL Estimated GFR (MDRD) 120 (>89) Glucose 129 H (70-100) mg/dL Calcium 7.9 L (8.5-10.3) mg/dL Magnesium 1.9 (1.7-2.8) mg/dL Iron 41 (28-170) ug/dL TIBC 259 (250-450) ug/dL % Saturation 16 L (20-50) % Transferrin 185 L (192-382) mg/dL Total Bilirubin 0.3 (0.2-1.0) mg/dL AST 37 (10-42) IU/L ALT 20 (10-60) IU/L Alkaline Phosphatase 625 H (42-121) IU/L Total Protein 5.1 L (6.7-8.2) g/dL Albumin 2.8 L (3.2-5.5) g/dL Globulin 2.3 (2.1-4.2) g/dL Albumin/Globulin Ratio 1.2 (1.0-2.2) Lipase (22-51) U/L Vitamin B12 2850 H (180-914) pg/mL Blood Type Antibody Screen Crossmatch IS Only 07/28/20 07/28/20 Range/Units 21:45 20:30 WBC 8.5 (4.8-10.8) x10^3/uL RBC 3.71 L (4.20-5.40) 10^6/uL Hgb 8.5 L (12.0-16.0) g/dL Hct 27.2 L (37.0-47.0) % MCV 73.3 L (81.0-99.0) fL MCH 22.9 L (27.0-31.0) pg MCHC 31.3 L (32.0-36.0) g/dL RDW 17.4 H (12.0-15.0) % Plt Count 268 (130-450) 10^3/uL MPV 10.1 (7.9-10.8) fL Neut # (Auto) 5.4 (1.5-6.6) 10^3/uL Lymph # (Auto) 2.1 (1.5-3.5) 10^3/uL [place] # (Auto) 0.9 (0.0-1.0) 10^3/uL Eos # (Auto) 0.0 (0.0-0.7) 10^3/uL Baso # (Auto) 0.0 (0.0-0.1) 10^3/uL Absolute Nucleated RBC 0.00 x10^3/uL Nucleated RBC % 0.0 /100WBC Sodium 137 (135-145) mmol/L Potassium 3.7 (3.5-5.0) mmol/L Chloride 104 (101-111) mmol/L Carbon Dioxide 22 (21-32) mmol/L Anion Gap 11.0 (6-13) BUN 14 (6-20) mg/dL Creatinine 0.4 (0.4-1.0) mg/dL Estimated GFR (MDRD) 155 (>89) Glucose 110 H (70-100) mg/dL Calcium 8.6 (8.5-10.3) mg/dL Magnesium 1.8 (1.7-2.8) mg/dL Iron (28-170) ug/dL TIBC (250-450) ug/dL % Saturation (20-50) % Transferrin (192-382) mg/dL Total Bilirubin 0.7 (0.2-1.0) mg/dL AST 39 (10-42) IU/L ALT 20 (10-60) IU/L Alkaline Phosphatase 686 H (42-121) IU/L Total Protein 5.4 L (6.7-8.2) g/dL Albumin 3.0 L (3.2-5.5) g/dL Globulin 2.4 (2.1-4.2) g/dL Albumin/Globulin Ratio 1.3 (1.0-2.2) Lipase 56 H (22-51) U/L Vitamin B12 (180-914) pg/mL Blood Type Antibody Screen Crossmatch IS Only ABX Reporting Has patient been on IV antibiotics over the past 48 hours?: No Assessment/Plan - Problem List (1) Acute respiratory failure with hypoxia Impression: Patient still needed 2 L oxygen to support and 99% sat. Patient seems comfortable in 2 L oxygen to support. nurse report patient O2 sat dropped to around 80% without oxygen with obvious respiratory distress. Patient has lung cancer with left lobectomy, plus patient has a new diagnosis COVID-19 pneumonia. We will continue support oxygen, continue treated COVID-19. (2) Pneumonia due to COVID-19 virus Impression: Patient Developed O2 desat drop Patient was seen in the admission. Patient had a COVID-19 tested positive in 07/28/20. Check chest x-ray show Development of moderate patch peripheral and central opacity in the right middle to the low lung. We will continue COVID-19 treatment with redmsivir, Dacadrom, Lovenox. Continue supplemental oxygen as needed. (3) Nausea vomiting and diarrhea Impression: Patient reported nausea, vomiting and diarrhea in the admission. Today patient has no diarrhea but he still has some nausea and vomiting but better than yesterday. Patient has COVID-19 positive which could cause some patient to have nausea, vomiting and diarrhea, Also patient was in the chemotherapy treated for his lung cancer which could cause patient to have nausea, vomiting and diarrhea. Patient's diarrhea is controlling today. We will send sample for C. difficile test if she continued to have diarrhea. We will give intravenous IV fluids, We will continue clear liquid diet advanced upon his tolerated. Continue laboratory specialist, Vital signs monitor. (4) Anemia Impression: Patient has hemoglobin of 7.0, which is significantly reduced from previous about 10. Patient has been chemotherapy for his lung cancer, patient had multiple metastatic bone lesions, All could affect, and lead patient to have anemia. occult stool study is pending. Anemia study did not indicate patient had iron deficiency of B12 deficiency. We will transfusion 2 units blood for patient, will continue H&H. (5) Lung cancer metastatic to bone Impression: Patient has lung cancer, patient had left lobectomy, patient is on the chemotherapy, last CAT scan show patient had multiple bone metastasis lesions Which can explain patient had elevated alkaline phosphatase. Now patient had a COVID-19 positive, patient is at high risk to develop complication. Continue supportive to patient, and supplement of O2, treat for Covid 19. Follow-up her oncologist (6) Generalized weakness Impression: Patient present generalized weakness. Patient has lung cancer on chemo tr eatment, patient has new diagnosis of COVID-19, patient had nausea, vomiting diarrhea. We will order PT and OT.
[2020-07-29] MEDS: D5NS W/20 MEQ KCL 1,000 ML IV SCH (16:25)
[2020-07-29] MEDS ORDERED: oxyCODONE 5 MG TABLET PO PRN (17:04)
[2020-07-29] MEDS: GABAPENTIN 100 MG CAPSULE PO SCH ×2 (17:49→22:13)
[2020-07-29] MEDS ORDERED: ALBUTEROL NEB 2.5 MG/3 ML INH STA (18:37)
[2020-07-29] MEDS ORDERED: ALBUTEROL 1 PUFF INH STA (19:40)
[2020-07-29 20:25] LABS: HGB - HEMOGLOBIN 11.8 g/dL (12.0-16.0)
[2020-07-29] MEDS ORDERED: LORazepam 2 MG/ML VIAL IVP ONE (22:23)
[2020-07-29] MEDS ORDERED: DOCUSATE SODIUM 250 MG CAPSULE PO ONE (22:26)
[2020-07-30] MEDS: SODIUM CHLORIDE FLUSH 0.9% 10 ML SYRINGE IVP SCH ×3 (00:43→17:08)
[2020-07-30] MEDS: D5NS W/20 MEQ KCL 1,000 ML IV SCH (04:59)
[2020-07-30] MEDS: GABAPENTIN 100 MG CAPSULE PO SCH ×3 (05:27→21:37)
[2020-07-30 05:32] LABS: BASOPHILS % (AUTO) 0.3 %; EOSINOPHILS % (AUTO) 0.1 %; HGB - HEMOGLOBIN 12.1 g/dL (12.0-16.0); LYMPHOCYTES # (AUTO) 2.5 10^3/uL (1.5-3.5); LYMPHOCYTES % (AUTO) 28.2 %; MEAN CORPUSCULAR HEMOGLOBIN 25.4 pg (27.0-31.0); MEAN CORPUSCULAR HGB CONC 31.8 g/dL (32.0-36.0); MEAN CORPUSCULAR VOLUME 79.7 fL (81.0-99.0); MEAN PLATELET VOLUME 9.4 fL (7.9-10.8); MONOCYTES # (AUTO) 1.1 10^3/uL (0.0-1.0); MONOCYTES % (AUTO) 12.6 %; NEUTROPHILS # (AUTO) 5.2 10^3/uL (1.5-6.6); NEUTROPHILS % (AUTO) 57.9 %; PLT - PLATELET COUNT 243 10^3/uL (130-450); RED BLOOD COUNT 4.77 10^6/uL (4.20-5.40); RED CELL DISTRIBUTION WIDTH 18.7 % (12.0-15.0)
[2020-07-30 05:52] LABS: BILIRUBIN,TOTAL 0.5 mg/dL (0.2-1.0); CALCIUM 8.5 mg/dL (8.5-10.3); CREATININE 0.3 mg/dL (0.4-1.0); TOTAL PROTEIN 5.9 g/dL (6.7-8.2)
[2020-07-30] MEDS ORDERED: ALBUTEROL NEB 2.5 MG/3 ML INH PRN (07:07)
[2020-07-30] MEDS ORDERED: ALBUTEROL 1 PUFF INH PRN (07:11)
[2020-07-30] MEDS: ACETAMINOPHEN 325 MG TABLET PO PRN (07:19)
[2020-07-30] MEDS: ENOXAPARIN 40 MG/0.4 ML SYRINGE SUBQ SCH (08:20)
[2020-07-30] MEDS: FAMOTIDINE 20 MG/2 ML VIAL IVP SCH ×2 (08:21→21:37)
[2020-07-30] MEDS: MULTIVITAMIN W/MINERALS TABLET PO SCH (08:21)
[2020-07-30] MEDS: DEXAMETHASONE 4 MG/ML VIAL IVP SCH (08:21)
[2020-07-30] MEDS: SODIUM CHLORIDE FLUSH 0.9% 10 ML SYRINGE IVP PRN ×2 (08:31→09:46)
[2020-07-30] MEDS ORDERED: TEMAZEPAM 15 MG CAPSULE PO PRN (08:33)
[2020-07-30] MEDS: METOPROLOL TARTRATE 25 MG TABLET PO SCH ×2 (09:45→21:37)
[2020-07-30] MEDS: REMDESIVIR 100MG VIAL 100 MG in SODIUM CHLORIDE 0.9% 100ML 100 ML IV SCH (09:45)
[2020-07-30] MEDS: polyethylene glycoL 3350 17 GM PACKET PO SCH (10:35)
[2020-07-30] MEDS: DOCUSATE SODIUM 250 MG CAPSULE PO SCH (10:35)
[2020-07-30] MEDS: SODIUM CHLORIDE 0.9% 1,000 ML IV SCH (11:33)
[2020-07-30] MEDS: IBUPROFEN 400 MG TABLET PO PRN ×2 (11:46→19:11)
[2020-07-30] MEDS: LORLATINIB 25 MG PO SCH (13:01)
[2020-07-30] MEDS: LORazepam 0.5 MG TABLET PO PRN (13:03)
--- NOTE | 2020-07-30 15:36 | PROVIDER PROGRESS NOTE ---
Subjective - Prog Note Date Prog Note Date: 07/30/20 - Subjective Pt reports feeling: Improved Subjective: Patient's daughter and family called me in the morning for 5-6 times, I politely and appropriately answered all their questions and concerns. I specifically discussed with pt's family: pt has lung cancer and on chemotherapy, and pt has hx of left lung pneumonectomy, now pt has Covid 19 infection, because Covid 19 has its uncertainly in the nature, pt is in the high risk for deterioration of her medical condition, they understood. They request if patient can start with her chemotherapy medication for her lung cancer. I called patient oncologist Dr. Abimael Storey at [phone], he agreed pt can start to have her own chemotherapy meds. pt took Lorbrena. We will let pt start it on today. Current Medications - Current Medications Current Medications: Active Medications Acetaminophen (Acetaminophen 325 Mg Tablet) 650 mg PO Q4HR PRN PRN Reason: Pain or Fever > 38C (100.4F) Last Admin: 07/30/20 07:19 Dose: 650 mg Documented by: Albuterol (Albuterol 1 Puff) 2 puffs INH RTQ4H PRN PRN Reason: Wheezing Stop: 08/06/20 07:10 Dexamethasone (Dexamethasone 4 Mg/Ml Vial) 6 mg IVP DAILY [facility] Stop: 08/02/20 12:00 Last Admin: 07/30/20 08:21 Dose: 6 mg Documented by: Docusate Sodium (Docusate Sodium 250 Mg Capsule) 250 - 500 mg PO DAILY [facility] Last Admin: 07/30/20 10:35 Dose: 250 mg Documented by: Enoxaparin Sodium (Enoxaparin 40 Mg/0.4 Ml Syringe) 40 mg SUBQ DAILY [facility] Last Admin: 07/30/20 08:20 Dose: 40 mg Documented by: Famotidine (Famotidine 20 Mg/2 Ml Vial) 20 mg IVP BID [facility] Last Admin: 07/30/20 08:21 Dose: 20 mg Documented by: Gabapentin (Gabapentin 100 Mg Capsule) 100 mg PO TID [facility] Last Admin: 07/30/20 13:03 Dose: 100 mg Documented by: Remdesivir 100 mg/ Sodium (Chloride) 100 mls @ 200 mls/hr IV DAILY [facility] Stop: 08/02/20 09:29 Last Infusion: 07/30/20 11:45 Dose: Infused Documented by: Sodium Chloride (Normal Saline 0.9%) 1,000 mls @ 75 mls/hr IV .[id number] [facility] Last Admin: 07/30/20 11:33 Dose: 75 mls/hr Documented by: Ibuprofen (Ibuprofen 400 Mg Tablet) 400 mg PO Q6HR PRN PRN Reason: PAIN Last Admin: 07/30/20 11:46 Dose: 400 mg Documented by: Lorazepam (Lorazepam 0.5 Mg Tablet) 0.25 mg PO Q8H PRN PRN Reason: Anxiety Last Admin: 07/30/20 13:03 Dose: 0.25 mg Documented by: Metoprolol Tartrate (Metoprolol Tartrate 25 Mg Tablet) 25 mg PO BID [facility] Last Admin: 07/30/20 09:45 Dose: 25 mg Documented by: Multivitamins/Minerals (Multivitamin W/Minerals Tablet) 1 tab PO DAILYWM [facility] Last Admin: 07/30/20 08:21 Dose: 1 tab Documented by: Non-Formulary Medication (Lorlatinib [Lorbrena]) 50 mg PO DAILY [facility] Last Admin: 07/30/20 13:01 Dose: 50 mg Documented by: Ondansetron HCl (Ondansetron 4 Mg/2 Ml Vial) 4 mg IVP Q6HR PRN PRN Reason: Nausea / Vomiting Oxycodone HCl (Oxycodone 5 Mg Tablet) 2.5 mg PO Q6HR PRN PRN Reason: PAIN Polyethylene Glycol (Polyethylene Glycol 3350 17 Gm Packet) 17 gm PO DAILY [facility] Last Admin: 07/30/20 10:35 Dose: 17 gm Documented by: Prochlorperazine Edisylate (Prochlorperazine 10 Mg/2 Ml Vial) 10 mg IVP Q6HR PRN PRN Reason: Nausea / Vomiting Sodium Chloride (Sodium Chloride Flush 0.9% 10 Ml Syringe) 10 ml IVP PRN PRN PRN Reason: NEEDED PER PROVIDER ORDERS Last Admin: 07/30/20 09:46 Dose: 10 ml Documented by: Sodium Chloride (Sodium Chloride Flush 0.9% 10 Ml Syringe) 10 ml IVP 0100,0900,1700 [facility] Last Admin: 07/30/20 08:23 Dose: 10 ml Documented by: Temazepam (Temazepam 15 Mg Capsule) 15 mg PO QPM PRN PRN Reason: Insomnia Gabapentin [Neurontin] 100 mg PO TID 07/28/20 Lorlatinib [Lorbrena] 50 mg PO DAILY 07/28/20 Objective - Vital Signs/Intake & Output Vital Signs: Vital Signs x48h Temp Pulse Pulse Resp BP BP Pulse Ox 07/30/20 14:51 36.7 C 82 20 147/91 H 92 07/30/20 09:45 165/99 H 07/30/20 09:40 90 14 07/30/20 09:00 36.7 C 114 H 22 165/99 H 96 Intake & Output: Intake & Output 07/27/20 07/28/20 07/29/20 07/30/20 23:59 23:59 23:59 23:59 Intake Total 1000 4384.717 1906.333 Output Total 500 1900 1300 Balance 500 2484.717 606.333 - Objective General Appearance: positive: Alert, Mild distress. negative: Lethargic Eyes Bilateral: positive: Normal inspection, PERRL, No lid inflammation ENT: positive: ENT inspection nml, No signs of dehydration. negative: Purulent nasal drainage Neck: positive: Nml inspection, Trachea midline. negative: Thyromegaly, Tracheal deviation Respiratory: positive: Chest non-tender, No respiratory distress, Rhonchi. negative: Wheezes Cardiovascular: positive: Regular rate & rhythm, No murmur. negative: Tachycardia, Bradycardia, Systolic murmur, Diastolic murmur Peripheral Pulses: 2+ Radial (R), 2+ Radial (L) Abdomen: positive: Non-tender, Nml bowel sounds, No distention. negative: Tenderness, Guarding, Rebound Back: positive: Nml inspection Skin: positive: Color nml, No rash, Warm, Dry. negative: Cyanosis, Diaphoresis, Pallor Extremities: positive: Non-tender, Nml appearance. negative: Calf tenderness Neurologic/Psychiatric: positive: Oriented x3, Sensation nml. negative: Weakness, Sensory loss, Facial droop, Slurred/abnml speech - Lab Results Fish Bones: 07/30/20 04:26 07/30/20 04:26 Other Labs: Lab Results x24hrs 07/30/20 07/30/20 07/30/20 Range/Units 04:26 04:26 04:26 WBC 9.0 (4.8-10.8) x10^3/uL RBC 4.77 (4.20-5.40) 10^6/uL Hgb 12.1 (12.0-16.0) g/dL Hct 38.0 (37.0-47.0) % MCV 79.7 L (81.0-99.0) fL MCH 25.4 L (27.0-31.0) pg MCHC 31.8 L (32.0-36.0) g/dL RDW 18.7 H (12.0-15.0) % Plt Count 243 (130-450) 10^3/uL MPV 9.4 (7.9-10.8) fL Neut # (Auto) 5.2 (1.5-6.6) 10^3/uL Lymph # (Auto) 2.5 (1.5-3.5) 10^3/uL Campbell # (Auto) 1.1 H (0.0-1.0) 10^3/uL Eos # (Auto) 0.0 (0.0-0.7) 10^3/uL Baso # (Auto) 0.0 (0.0-0.1) 10^3/uL Absolute Nucleated RBC 0.00 x10^3/uL Nucleated RBC % 0.0 /100WBC Sodium 139 (135-145) mmol/L Potassium 4.1 (3.5-5.0) mmol/L Chloride 109 (101-111) mmol/L Carbon Dioxide 22 (21-32) mmol/L Anion Gap 8.0 (6-13) BUN 10 (6-20) mg/dL Creatinine 0.3 L (0.4-1.0) mg/dL Estimated GFR (MDRD) 216 (>89) Glucose 124 H (70-100) mg/dL Calcium 8.5 (8.5-10.3) mg/dL Total Bilirubin 0.5 (0.2-1.0) mg/dL AST 46 H (10-42) IU/L ALT 22 (10-60) IU/L Alkaline Phosphatase 686 H (42-121) IU/L Total Protein 5.9 L (6.7-8.2) g/dL Albumin 3.0 L (3.2-5.5) g/dL Globulin 2.9 (2.1-4.2) g/dL Albumin/Globulin Ratio 1.0 (1.0-2.2) Folate 44.00 (5.90 - >24.8) ng/mL Blood Type Antibody Screen Crossmatch IS Only 07/29/20 07/29/20 Range/Units 20:20 08:55 WBC (4.8-10.8) x10^3/uL RBC (4.20-5.40) 10^6/uL Hgb 11.8 L (12.0-16.0) g/dL Hct 36.7 L (37.0-47.0) % MCV (81.0-99.0) fL MCH (27.0-31.0) pg MCHC (32.0-36.0) g/dL RDW (12.0-15.0) % Plt Count (130-450) 10^3/uL MPV (7.9-10.8) fL Neut # (Auto) (1.5-6.6) 10^3/uL Lymph # (Auto) (1.5-3.5) 10^3/uL Campbell # (Auto) (0.0-1.0) 10^3/uL Eos # (Auto) (0.0-0.7) 10^3/uL Baso # (Auto) (0.0-0.1) 10^3/uL Absolute Nucleated RBC x10^3/uL Nucleated RBC % /100WBC Sodium (135-145) mmol/L Potassium (3.5-5.0) mmol/L Chloride (101-111) mmol/L Carbon Dioxide (21-32) mmol/L Anion Gap (6-13) BUN (6-20) mg/dL Creatinine (0.4-1.0) mg/dL Estimated GFR (MDRD) (>89) Glucose (70-100) mg/dL Calcium (8.5-10.3) mg/dL Total Bilirubin (0.2-1.0) mg/dL AST (10-42) IU/L ALT (10-60) IU/L Alkaline Phosphatase (42-121) IU/L Total Protein (6.7-8.2) g/dL Albumin (3.2-5.5) g/dL Globulin (2.1-4.2) g/dL Albumin/Globulin Ratio (1.0-2.2) Folate (5.90 - >24.8) ng/mL Blood Type B POSITIVE Antibody Screen NEGATIVE Crossmatch IS Only See Detail ABX Reporting Has patient been on IV antibiotics over the past 48 hours?: No Assessment/Plan - Problem List (1) Acute respiratory failure with hypoxia Impression: 07/30 Patient has 92% sats on 1 L of oxygen, patient seems comfortable without acute respiratory distress. We will continue support oxygen, continue treated COVID-19 with redmsivir, Dacadrom, Lovenox. Patient still needed 2 L oxygen to support and 99% sat. Patient seems comfortable in 2 L oxygen to support. nurse report patient O2 sat dropped to around 80% without oxygen with obvious respiratory distress. Patient has lung cancer with left lobectomy, plus patient has a new diagnosis COVID-19 pneumonia. We will continue support oxygen, continue treated COVID-19. (2) Pneumonia due to COVID-19 virus Impression: Patient Developed O2 desat drop Patient was seen in the admission. Patient had a COVID-19 tested positive in 07/28/20. Check chest x-ray show Development of moderate patch peripheral and central opacity in the right middle to the low lung. We will continue COVID-19 treatment with redmsivir, Dacadrom, Lovenox. Continue supplemental oxygen as needed. (3) Nausea vomiting and diarrhea Impression: 07/30 Resolved. Patient reported nausea, vomiting and diarrhea in the admission. Today patient has no diarrhea but he still has some nausea and vomiting but better than yesterday. Patient has COVID-19 positive which could cause some patient to have nausea, vomiting and diarrhea, Also patient was in the chemotherapy treated for his lung cancer which could cause patient to have nausea, vomiting and diarrhea. Patient's diarrhea is controlling today. We will send sample for C. difficile test if she continued to have diarrhea. We will give intravenous IV fluids, We will continue clear liquid diet advanced upon his tolerated. Continue research laboratory technician, Vital signs monitor. (4) Anemia Impression: 07/30 Patient has a hemoglobin 12.1. We will continue research laboratory technician Patient has hemoglobin of 7.0, which is significantly reduced from previous about 10. Patient has been chemotherapy for his lung cancer, patient had multiple metastatic bone lesions, All could affect, and lead patient to have anemia. occult stool study is pending. Anemia study did not indicate patient had iron deficiency of B12 deficiency. We will transfusion 2 units blood for patient, will continue H&H. (5) Lung cancer metastatic to bone Impression: 07/30 Discussed with the patient oncologist Dr. Storey, He recommended we can continue use patient home chemotherapy medication, asked pt bring her own meds to hospital, pt already start now Patient has lung cancer, patient had left lobectomy, patient is on the chemotherapy, last CAT scan show patient had multiple bone metastasis lesions Which can explain patient had elevated alkaline phosphatase. Now patient had a COVID-19 positive, patient is at high risk to develop complication. Continue supportive to patient, and supplement of O2, treat for Covid 19. Follow-up her oncologist (6) Generalized weakness Impression: Patient present generalized weakness. Patient has lung cancer on chemo treatment, patient has new diagnosis of COVID-19, patient had nausea, vomiting diarrhea. We will order PT and OT. (7)HTN Patient Had elevated blood pressure and tachycardia, We will add metoprolol, Continue vital signs and statistical engineer (8)anxiety Patient present anxiety in the morning, We will order low dosage of ativan for pt as needed.
[2020-07-31] MEDS: SODIUM CHLORIDE 0.9% 1,000 ML IV SCH ×2 (00:42→14:36)
[2020-07-31] MEDS: SODIUM CHLORIDE FLUSH 0.9% 10 ML SYRINGE IVP SCH ×3 (00:42→18:15)
[2020-07-31 05:09] LABS: BASOPHILS % (AUTO) 0.3 %; EOSINOPHILS % (AUTO) 0.1 %; HGB - HEMOGLOBIN 10.5 g/dL (12.0-16.0); MEAN CORPUSCULAR HEMOGLOBIN 25.1 pg (27.0-31.0); MEAN CORPUSCULAR HGB CONC 31.6 g/dL (32.0-36.0); MEAN CORPUSCULAR VOLUME 79.4 fL (81.0-99.0); MEAN PLATELET VOLUME 8.8 fL (7.9-10.8); MONOCYTES % (AUTO) 12.3 %; NEUTROPHILS % (AUTO) 64.2 %; PLT - PLATELET COUNT 221 10^3/uL (130-450); RED BLOOD COUNT 4.18 10^6/uL (4.20-5.40); RED CELL DISTRIBUTION WIDTH 19.6 % (12.0-15.0); WHITE BLOOD COUNT 11.7 x10^3/uL (4.8-10.8)
[2020-07-31 05:10] LABS: LYMPHOCYTES # (AUTO) 2.6 10^3/uL (1.5-3.5); MONOCYTES # (AUTO) 1.4 10^3/uL (0.0-1.0); NEUTROPHILS # (AUTO) 7.5 10^3/uL (1.5-6.6)
[2020-07-31 05:24] LABS: ALBUMIN 2.7 g/dL (3.2-5.5); BILIRUBIN,TOTAL 0.8 mg/dL (0.2-1.0); CALCIUM 8.1 mg/dL (8.5-10.3); CREATININE 0.5 mg/dL (0.4-1.0); TOTAL PROTEIN 5.4 g/dL (6.7-8.2)
[2020-07-31] MEDS: GABAPENTIN 100 MG CAPSULE PO SCH ×3 (05:51→21:40)
[2020-07-31] MEDS ORDERED: SODIUM CHLORIDE 0.9% 1,000 ML IV SCH (07:42)
[2020-07-31] MEDS ORDERED: METOPROLOL TARTRATE 25 MG TABLET PO SCH (09:00)
[2020-07-31] MEDS: DEXAMETHASONE 4 MG/ML VIAL IVP SCH (09:16)
[2020-07-31] MEDS: REMDESIVIR 100MG VIAL 100 MG in SODIUM CHLORIDE 0.9% 100ML 100 ML IV SCH (09:16)
[2020-07-31] MEDS: DOCUSATE SODIUM 250 MG CAPSULE PO SCH (09:16)
[2020-07-31] MEDS: MULTIVITAMIN W/MINERALS TABLET PO SCH (09:16)
[2020-07-31] MEDS: ENOXAPARIN 40 MG/0.4 ML SYRINGE SUBQ SCH (09:16)
[2020-07-31] MEDS: FAMOTIDINE 20 MG/2 ML VIAL IVP SCH ×2 (09:16→21:39)
[2020-07-31] MEDS: polyethylene glycoL 3350 17 GM PACKET PO SCH (09:16)
[2020-07-31] MEDS: LORLATINIB 25 MG PO SCH (09:16)
--- NOTE | 2020-07-31 14:24 | PROVIDER PROGRESS NOTE ---
Assessment/Plan - Problem List (1) Acute respiratory failure with hypoxia Assessment/Plan: 07/31 Patient seems has no active respiratory distress, She continue talking with her family in the phone, She has 92 to 93% saturation on 2 L of oxygen. We will continue supplemental oxygen, continue treated COVID-19 with redmsivir, Dacadrom, Lovenox. 07/30 Patient has 92% sats on 1 L of oxygen, patient seems comfortable without acute respiratory distress. We will continue support oxygen, continue treated COVID-19 with redmsivir, Dacadrom, Lovenox. Patient still needed 2 L oxygen to support and 99% sat. Patient seems comfortable in 2 L oxygen to support. nurse report patient O2 sat dropped to around 80% without oxygen with obvious respiratory distress. Patient has lung cancer with left lobectomy, plus patient has a new diagnosis COVID-19 pneumonia. We will continue support oxygen, continue treated COVID-19. (2) Pneumonia due to COVID-19 virus Impression: Patient Developed O2 desat drop Patient was seen in the admission. Patient had a COVID-19 tested positive in 07/28/20. Check chest x-ray show Development of moderate patch peripheral and central opacity in the right middle to the low lung. We will continue COVID-19 treatment with redmsivir, Dacadrom, Lovenox. Continue supplemental oxygen as needed. (3) Nausea vomiting and diarrhea Impression: 07/31 pt had a big bowel movement on yesterday. pt has no N/V 07/30 Resolved. Patient reported nausea, vomiting and diarrhea in the admission. Today patient has no diarrhea but he still has some nausea and vomiting but better than yesterday. Patient has COVID-19 positive which could cause some patient to have nausea, vomiting and diarrhea, Also patient was in the chemotherapy treated for his lung cancer which could cause patient to have nausea, vomiting and diarrhea. Patient's diarrhea is controlling today. We will send sample for C. difficile test if she continued to have diarrhea. We will give intravenous IV fluids, We will continue clear liquid diet advanced upon his tolerated. Continue laboratory technical specialist, Vital signs monitor. (4) Anemia Impression: 07/31 Hemoglobin 10.5. She had 2 blood unit transfusion on 2 days ago. We will continue laboratory technical specialist 07/30 Patient has a hemoglobin 12.1. We will continue laboratory technical specialist Patient has hemoglobin of 7.0, which is significantly reduced from previous a bout 10. Patient has been chemotherapy for his lung cancer, patient had multiple metastatic bone lesions, All could affect, and lead patient to have anemia. occult stool study is pending. Anemia study did not indicate patient had iron deficiency of B12 deficiency. We will transfusion 2 units blood for patient, will continue H&H. (5) Lung cancer metastatic to bone Impression: 07/30 Discussed with the patient oncologist Dr. Storey, He recommended we can c ontinue use patient home chemotherapy medication, asked pt bring her own meds to hospital, pt already start now Patient has lung cancer, patient had left lobectomy, patient is on the chemotherapy, last CAT scan show patient had multiple bone metastasis lesions Which can explain patient had elevated alkaline phosphatase. Now patient had a COVID-19 positive, patient is at high risk to develop complication. Continue supportive to patient, and supplement of O2, treat for Covid 19. Follow-up her oncologist (6) Generalized weakness Impression: Patient present generalized weakness. Patient has lung cancer on chemo treatment, patient has new diagnosis of COVID-19, patient had nausea, vomiting diarrhea. We will order PT and OT. (7)HTN Patient Had elevated blood pressure and tachycardia, We will add metoprolol, Continue vital signs and residential monitor (8)anxiety Patient present anxiety in the morning, We will order low dosage of ativan for pt as needed. - Current Meds Current Meds: Current Medications Generic Name Dose Route Start Last Admin Trade Name Freq PRN Reason Stop Dose Admin Acetaminophen 650 mg 07/29/20 02:48 07/30/20 07:19 Acetaminophen 325 Mg Tablet PO 650 mg Q4HR PRN Administration Pain or Fever > 38C (100.4F) Dexamethasone 6 mg 07/29/20 12:00 07/31/20 09:16 Dexamethasone 4 Mg/Ml Vial IVP 08/02/20 12:00 6 mg DAILY [facility]ANCA Administration Docusate Sodium 250 - 500 mg 07/30/20 11:00 07/31/20 09:16 Docusate Sodium 250 Mg Capsule PO 250 mg DAILY [facility]ANCA Administration Enoxaparin Sodium 40 mg 07/29/20 09:00 07/31/20 09:16 Enoxaparin 40 Mg/0.4 Ml Syringe SUBQ 40 mg DAILY [facility]ANCA Administration Famotidine 20 mg 07/29/20 09:00 07/31/20 09:16 Famotidine 20 Mg/2 Ml Vial IVP 20 mg BID BLANCA Administration Gabapentin 100 mg 07/29/20 18:00 07/31/20 13:21 Gabapentin 100 Mg Capsule PO 100 mg TID BLANCA Administration Remdesivir 100 mg/ Sodium 100 mls @ 200 mls/hr 07/30/20 09:00 07/31/20 09:52 Chloride IV 08/02/20 09:29 Infused DAILY [facility]ANCA Infusion Ibuprofen 400 mg 07/30/20 10:52 07/30/20 19:11 Ibuprofen 400 Mg Tablet PO 400 mg Q6HR PRN Administration PAIN Lorazepam 0.25 mg 07/30/20 12:35 07/30/20 13:03 Lorazepam 0.5 Mg Tablet PO 0.25 mg Q8H PRN Administration Anxiety Multivitamins/Minerals 1 tab 07/29/20 12:00 07/31/20 09:16 Multivitamin W/Minerals Tablet PO 1 tab DAILYWM [facility]ANCA Administration Non-Formulary Medication 50 mg 07/30/20 13:00 07/31/20 09:16 Lorlatinib [Lorbrena] PO 50 mg DAILY [facility] Administration Polyethylene Glycol 17 gm 07/30/20 11:00 07/31/20 09:16 Polyethylene Glycol 3350 17 Gm Packet PO 17 gm DAILY [facility]ANCA Administration Sodium Chloride 10 ml 07/29/20 02:48 07/30/20 09:46 Sodium Chloride Flush 0.9% 10 Ml Syringe IVP 10 ml PRN PRN Administration NEEDED PER PROVIDER ORDERS Sodium Chloride 10 ml 07/29/20 09:00 07/31/20 09:17 Sodium Chloride Flush 0.9% 10 Ml Syringe IVP 10 ml 0100,0900,1700 BLANCA Administration - Lab Result Fish Bone Diagrams: 07/31/20 04:59 07/31/20 04:59 - Additional Planning My Orders: My Active Orders 07/31/20 14:19 Sodium Chloride 0.9% [Normal Saline 0.9%] 1,000 ml IV 75 mls/hr 07/31/20 21:00 Metoprolol Tartrate [Lopressor] 25 mg PO BID Temazepam [Restoril] 15 mg PO QPM 08/01/20 05:00 CBC - COMP BLD CT W/AUTO DIFF [HEME] DAILYLAB CMP [COMPREHENSIVE METABOLIC PANEL] [CHEM] DAILYLAB 08/02/20 05:00 CBC - COMP BLD CT W/AUTO DIFF [HEME] DAILYLAB CMP [COMPREHENSIVE METABOLIC PANEL] [CHEM] DAILYLAB 08/03/20 05:00 CBC - COMP BLD CT W/AUTO DIFF [HEME] DAILYLAB CMP [COMPREHENSIVE METABOLIC PANEL] [CHEM] DAILYLAB 08/04/20 05:00 CBC - COMP BLD CT W/AUTO DIFF [HEME] DAILYLAB CMP [COMPREHENSIVE METABOLIC PANEL] [CHEM] DAILYLAB Subjective - Subjective Patient Reports: Feeling Better Objective Vital Signs: Vital Signs - 24 hr 07/30/20 07/30/20 07/30/20 14:51 17:16 19:25 Temperature 36.7 C 36.6 C Heart Rate 93 Heart Rate [ 82 85 Brachial] Respiratory 20 24 20 Rate Blood Pressure Blood Pressure 147/91 H 156/65 H [Right Brachial artery] O2 Saturation 92 92 07/30/20 07/30/20 07/31/20 20:52 21:37 01:00 Temperature 36.9 C 36.8 C Heart Rate Heart Rate [ 93 81 Brachial] Respiratory 30 H 20 Rate Blood Pressure 153/88 H Blood Pressure 153/88 H 132/91 H [Right Brachial artery] O2 Saturation 93 97 07/31/20 07/31/20 07/31/20 05:38 08:30 09:16 Temperature 36.7 C 36.9 C Heart Rate Heart Rate [ 93 103 H Brachial] Respiratory 24 28 H Rate Blood Pressure 160/81 H Blood Pressure 105/94 H 160/81 H [Right Brachial artery] O2 Saturation 95 94 07/31/20 13:00 Temperature 36.8 C Heart Rate Heart Rate [ 99 Brachial] Respiratory 28 H Rate Blood Pressure Blood Pressure 159/82 H [Right Brachial artery] O2 Saturation 91 L Oxygen O2 Source Nasal cannula I&O (Last 24 Hrs): Intake and Output Totals x24h 07/29/20 07/30/20 07/31/20 23:59 23:59 23:59 Intake Total 4384.717 2186.333 2526.25 Output Total 1900 1400 300 Balance 2484.717 634.102 1287.25 General: Alert, Oriented x3, Cooperative, No acute distress HEENT: Atraumatic Neck: Supple Lymphatic: no adenopathy Neuro: Alert, Non Focal, Oriented Times 3 Cardiovascular: Regular rate, Normal S1, Normal S2 Respiratory: Chest non-tender, No respiratory distress Abdomen: Normal bowel sounds, Soft, No tenderness Extremities: Normal pulses - Results Results: Laboratory Results WBC 11.7 x10^3/uL (4.8-10.8) H 07/31/20 04:59 RBC 4.18 10^6/uL (4.20-5.40) L 07/31/20 04:59 Hgb 10.5 g/dL (12.0-16.0) L 07/31/20 04:59 Hct 33.2 % (37.0-47.0) L 07/31/20 04:59 MCV 79.4 fL (81.0-99.0) L 07/31/20 04:59 MCH 25.1 pg (27.0-31.0) L 07/31/20 04:59 MCHC 31.6 g/dL (32.0-36.0) L 07/31/20 04:59 RDW 19.6 % (12.0-15.0) H 07/31/20 04:59 Plt Count 221 10^3/uL (130-450) 07/31/20 04:59 MPV 8.8 fL (7.9-10.8) 07/31/20 04:59 Neut # (Auto) 7.5 10^3/uL (1.5-6.6) H 07/31/20 04:59 Lymph # (Auto) 2.6 10^3/uL (1.5-3.5) 07/31/20 04:59 Grady # (Auto) 1.4 10^3/uL (0.0-1.0) H 07/31/20 04:59 Eos # (Auto) 0.0 10^3/uL (0.0-0.7) 07/31/20 04:59 Baso # (Auto) 0.0 10^3/uL (0.0-0.1) 07/31/20 04:59 Absolute Nucleated RBC 0.03 x10^3/uL 07/31/20 04:59 Nucleated RBC % 0.3 /100WBC 07/31/20 04:59 Sodium 137 mmol/L (135-145) 07/31/20 04:59 Potassium 3.8 mmol/L (3.5-5.0) 07/31/20 04:59 Chloride 107 mmol/L (101-111) 07/31/20 04:59 Carbon Dioxide 22 mmol/L (21-32) 07/31/20 04:59 Anion Gap 8.0 (6-13) 07/31/20 04:59 BUN 22 mg/dL (6-20) H 07/31/20 04:59 Creatinine 0.5 mg/dL (0.4-1.0) 07/31/20 04:59 Estimated GFR (MDRD) 120 (>89) 07/31/20 04:59 Glucose 98 mg/dL (70-100) 07/31/20 04:59 Calcium 8.1 mg/dL (8.5-10.3) L 07/31/20 04:59 Magnesium 1.9 mg/dL (1.7-2.8) 07/29/20 05:14 Iron 41 ug/dL (28-170) 07/29/20 05:14 TIBC 259 ug/dL (250-450) 07/29/20 05:14 % Saturation 16 % (20-50) L 07/29/20 05:14 Transferrin 185 mg/dL (192-382) L 07/29/20 05:14 Total Bilirubin 0.8 mg/dL (0.2-1.0) 07/31/20 04:59 AST 38 IU/L (10-42) 07/31/20 04:59 ALT 23 IU/L (10-60) 07/31/20 04:59 Alkaline Phosphatase 617 IU/L (42-121) H 07/31/20 04:59 Total Protein 5.4 g/dL (6.7-8.2) L 07/31/20 04:59 Albumin 2.7 g/dL (3.2-5.5) L 07/31/20 04:59 Globulin 2.7 g/dL (2.1-4.2) 07/31/20 04:59 Albumin/Globulin Ratio 1.0 (1.0-2.2) 07/31/20 04:59 Lipase 35 U/L (22-51) 07/29/20 05:14 Vitamin B12 2850 pg/mL (180-914) H 07/29/20 05:14 Folate 44.00 ng/mL (5.90 - >24.8) 07/30/20 04:26 Stl C. diff Tox B Gene NEGATIVE (NEGATIVE) 07/30/20 14:10 Blood Type B POSITIVE 07/29/20 08:55 Antibody Screen NEGATIVE 07/29/20 08:55 Crossmatch IS Only See Detail 07/29/20 08:55 - Procedures Procedures: Procedures COLONOSCOPY (06/29/13) ABX Reporting Has patient been on IV antibiotics over the past 48 hours?: No Current Medications - Current Medications Current Medications: Active Medications Acetaminophen (Acetaminophen 325 Mg Tablet) 650 mg PO Q4HR PRN PRN Reason: Pain or Fever > 38C (100.4F) Last Admin: 07/30/20 07:19 Dose: 650 mg Documented by: Albuterol (Albuterol 1 Puff) 2 puffs INH RTQ4H PRN PRN Reason: Wheezing Stop: 08/06/20 07:10 Dexamethasone (Dexamethasone 4 Mg/Ml Vial) 6 mg IVP DAILY [facility] Stop: 08/02/20 12:00 Last Admin: 07/31/20 09:16 Dose: 6 mg Documented by: Docusate Sodium (Docusate Sodium 250 Mg Capsule) 250 - 500 mg PO DAILY [facility] Last Admin: 07/31/20 09:16 Dose: 250 mg Documented by: Enoxaparin Sodium (Enoxaparin 40 Mg/0.4 Ml Syringe) 40 mg SUBQ DAILY [facility] Last Admin: 07/31/20 09:16 Dose: 40 mg Documented by: Famotidine (Famotidine 20 Mg/2 Ml Vial) 20 mg IVP BID [facility] Last Admin: 07/31/20 09:16 Dose: 20 mg Documented by: Gabapentin (Gabapentin 100 Mg Capsule) 100 mg PO TID [facility] Last Admin: 07/31/20 13:21 Dose: 100 mg Documented by: Remdesivir 100 mg/ Sodium (Chloride) 100 mls @ 200 mls/hr IV DAILY [facility] Stop: 08/02/20 09:29 Last Infusion: 07/31/20 09:52 Dose: Infused Documented by: Sodium Chloride (Normal Saline 0.9%) 1,000 mls @ 75 mls/hr IV .[id number] [facility] Stop: 08/01/20 16:58 Last Admin: 07/31/20 14:36 Dose: 75 mls/hr Documented by: Ibuprofen (Ibuprofen 400 Mg Tablet) 400 mg PO Q6HR PRN PRN Reason: PAIN Last Admin: 07/30/20 19:11 Dose: 400 mg Documented by: Lorazepam (Lorazepam 0.5 Mg Tablet) 0.25 mg PO Q8H PRN PRN Reason: Anxiety Last Admin: 07/30/20 13:03 Dose: 0.25 mg Documented by: Metoprolol Tartrate (Metoprolol Tartrate 25 Mg Tablet) 25 mg PO BID [facility] Multivitamins/Minerals (Multivitamin W/Minerals Tablet) 1 tab PO DAILYWM [facility] Last Admin: 07/31/20 09:16 Dose: 1 tab Documented by: Non-Formulary Medication (Lorlatinib [Lorbrena]) 50 mg PO DAILY [facility] Last Admin: 07/31/20 09:16 Dose: 50 mg Documented by: Ondansetron HCl (Ondansetron 4 Mg/2 Ml Vial) 4 mg IVP Q6HR PRN PRN Reason: Nausea / Vomiting Oxycodone HCl (Oxycodone 5 Mg Tablet) 2.5 mg PO Q6HR PRN PRN Reason: PAIN Polyethylene Glycol (Polyethylene Glycol 3350 17 Gm Packet) 17 gm PO DAILY [facility] Last Admin: 07/31/20 09:16 Dose: 17 gm Documented by: Prochlorperazine Edisylate (Prochlorperazine 10 Mg/2 Ml Vial) 10 mg IVP Q6HR PRN PRN Reason: Nausea / Vomiting Sodium Chloride (Sodium Chloride Flush 0.9% 10 Ml Syringe) 10 ml IVP PRN PRN PRN Reason: NEEDED PER PROVIDER ORDERS Last Admin: 07/30/20 09:46 Dose: 10 ml Documented by: Sodium Chloride (Sodium Chloride Flush 0.9% 10 Ml Syringe) 10 ml IVP 0100,0900,1700 [facility] Last Admin: 07/31/20 09:17 Dose: 10 ml Documented by: Temazepam (Temazepam 15 Mg Capsule) 15 mg PO QPM [facility] Gabapentin [Neurontin] 100 mg PO TID 07/28/20 Lorlatinib [Lorbrena] 50 mg PO DAILY 07/28/20
[2020-07-31] MEDS: ACETAMINOPHEN 325 MG TABLET PO PRN (16:14)
[2020-07-31] MEDS ORDERED: hydrALAZINE INJ 20 MG/ML VIAL IVP PRN (19:00)
[2020-07-31] MEDS: TEMAZEPAM 15 MG CAPSULE PO SCH (21:40)
[2020-07-31] MEDS: METOPROLOL TARTRATE 25 MG TABLET PO SCH (21:41)
[2020-08-01] MEDS: SODIUM CHLORIDE 0.9% 1,000 ML IV SCH (01:15)
[2020-08-01] MEDS: SODIUM CHLORIDE FLUSH 0.9% 10 ML SYRINGE IVP SCH ×3 (01:17→17:23)
[2020-08-01] MEDS: LORazepam 0.5 MG TABLET PO PRN ×2 (03:00→12:26)
[2020-08-01] MEDS: ACETAMINOPHEN 325 MG TABLET PO PRN ×2 (04:53→17:03)
[2020-08-01] MEDS: GABAPENTIN 100 MG CAPSULE PO SCH ×3 (04:55→21:53)
[2020-08-01 06:25] LABS: BASOPHILS % (AUTO) 0.2 %; EOSINOPHILS % (AUTO) 0.2 %; HGB - HEMOGLOBIN 9.6 g/dL (12.0-16.0); LYMPHOCYTES % (AUTO) 11.4 %; MEAN CORPUSCULAR HEMOGLOBIN 25.1 pg (27.0-31.0); MEAN CORPUSCULAR HGB CONC 31.9 g/dL (32.0-36.0); MEAN CORPUSCULAR VOLUME 78.8 fL (81.0-99.0); MEAN PLATELET VOLUME 9.5 fL (7.9-10.8); MONOCYTES % (AUTO) 11.7 %; NEUTROPHILS % (AUTO) 74.7 %; PLT - PLATELET COUNT 234 10^3/uL (130-450); RED BLOOD COUNT 3.82 10^6/uL (4.20-5.40); WHITE BLOOD COUNT 14.1 x10^3/uL (4.8-10.8)
[2020-08-01 06:39] LABS: ALBUMIN 2.8 g/dL (3.2-5.5); ALBUMIN/GLOBULIN RATIO 1.1 (1.0-2.2); BILIRUBIN,TOTAL 0.8 mg/dL (0.2-1.0); CREATININE 0.4 mg/dL (0.4-1.0); TOTAL PROTEIN 5.4 g/dL (6.7-8.2)
[2020-08-01 07:01] LABS: DIFFERENTIAL COMMENT MANUAL DIFFERENTIAL; PLATELET ESTIMATE, MANUAL NORMAL (130-450,000) (NORMAL); PLATELET MORPHOLOGY NORMAL APPEARANCE (NORMAL); RBC MORPHOLOGY (MULTIPLE) NORMAL APPEARANCE (NORMAL)
[2020-08-01] MEDS ORDERED: POTASSIUM CHLORIDE 20 MEQ TABLET PO ONE (07:54)
[2020-08-01] MEDS: METOPROLOL TARTRATE 25 MG TABLET PO SCH ×2 (09:00→21:53)
[2020-08-01] MEDS: MULTIVITAMIN W/MINERALS TABLET PO SCH (09:00)
[2020-08-01] MEDS: REMDESIVIR 100MG VIAL 100 MG in SODIUM CHLORIDE 0.9% 100ML 100 ML IV SCH (09:02)
[2020-08-01] MEDS: DEXAMETHASONE 4 MG/ML VIAL IVP SCH (09:04)
[2020-08-01] MEDS: FAMOTIDINE 20 MG/2 ML VIAL IVP SCH ×2 (09:05→21:53)
[2020-08-01] MEDS: ENOXAPARIN 40 MG/0.4 ML SYRINGE SUBQ SCH (09:06)
[2020-08-01] MEDS: polyethylene glycoL 3350 17 GM PACKET PO SCH (09:06)
[2020-08-01] MEDS: DOCUSATE SODIUM 250 MG CAPSULE PO SCH (09:06)
[2020-08-01] MEDS: LORLATINIB 25 MG PO SCH (09:07)
[2020-08-01] MEDS ORDERED: MORPHINE 2 MG/ML CARPUJECT IVP PRN (09:21)
--- NOTE | 2020-08-01 13:49 | PROVIDER PROGRESS NOTE ---
Assessment/Plan - Problem List (1) Acute respiratory failure with hypoxia Assessment/Plan: 08/01 Patient still needed oxygen support, Oxygen saturation dropped very quickly without oxygen. Patient did not take oxygen at home. She had a 95% sats on 2 L oxygen, No obviously respiratory distress. continue supplemental oxygen, continue treated COVID-19 with redmsivir, Dacadrom, Lovenox. 07/31 Patient seems has no active respiratory distress, She continue talking with her family in the phone, She has 92 to 93% saturation on 2 L of oxygen. We will continue supplemental oxygen, continue treated COVID-19 with redmsivir, Dacadrom, Lovenox. 07/30 Patient has 92% sats on 1 L of oxygen, patient seems comfortable without acute respiratory distress. We will continue support oxygen, continue treated COVID-19 with redmsivir, Dacadrom, Lovenox. Patient still needed 2 L oxygen to support and 99% sat. Patient seems comfortable in 2 L oxygen to support. nurse report patient O2 sat dropped to around 80% without oxygen with obvious respiratory distress. Patient has lung cancer with left lobectomy, plus patient has a new diagnosis COVID-19 pneumonia. We will continue support oxygen, continue treated COVID-19. (2) Pneumonia due to COVID-19 virus Impression: Patient Developed O2 desat drop Patient was seen in the admission. Patient had a COVID-19 tested positive in 07/28/20. Check chest x-ray show Development of moderate patch peripheral and central opacity in the right middle to the low lung. We will continue COVID-19 treatment with redmsivir, Dacadrom, Lovenox. Continue supplemental oxygen as needed. (3) Nausea vomiting and diarrhea Impression: 07/31 pt had a big bowel movement on yesterday. pt has no N/V 07/30 Resolved. Patient reported nausea, vomiting and diarrhea in the admission. Today patient has no diarrhea but he still has some nausea and vomiting but better than yesterday. Patient has COVID-19 positive which could cause some patient to have nausea, vomiting and diarrhea, Also patient was in the chemotherapy treated for his lung cancer which could cause patient to have nausea, vomiting and diarrhea. Patient's diarrhea is controlling today. We will send sample for C. difficile test if she continued to have diarrhea. We will give intravenous IV fluids, We will continue clear liquid diet advanced upon his tolerated. Continue laboratory administrative director, Vital signs monitor. (4) Anemia Impression: 122, hemoglobin 9.6 Today. stool blood test is negative. Patient had Multiple metastatic bone lesion, lung cancer and at Chemotherapy which Could have contrib uted patient's anemia. Continue laboratory administrative director. 07/31 Hemoglobin 10.5. She had 2 blood unit transfusion on 2 days ago. We will continue laboratory administrative director 07/30 Patient has a hemoglobin 12.1. We will continue laboratory administrative director Patient has hemoglobin of 7.0, which is significantly reduced from previous about 10. Patient has been chemotherapy for his lung cancer, patient had multiple metastatic bone lesions, All could affect, and lead patient to have anemia. occult stool study is pending. Anemia study did not indicate patient had iron deficiency of B12 deficiency. We will transfusion 2 units blood for patient, will continue H&H. (5) Lung cancer metastatic to bone Impression: 07/30 Discussed with the patient oncologist Dr. Storey, He recommended we can continue use patient home chemotherapy medication, asked pt bring her own meds to hospital, pt already start now Patient has lung cancer, patient had left lobectomy, patient is on the chemo therapy, last CAT scan show patient had multiple bone metastasis lesions Which can explain patient had elevated alkaline phosphatase. Now patient had a COVID- 19 positive, patient is at high risk to develop complication. Continue supportive to patient, and supplement of O2, treat for Covid 19. Follow-up her oncologist (6) Generalized weakness Impression: Patient present generalized weakness. Patient has lung cancer on chemo treatment, patient has new diagnosis of COVID-19, patient had nausea, vomiting diarrhea. We will order PT and OT. (7)HTN Patient Had elevated blood pressure and tachycardia, We will add metoprolol, Continue vital signs and nurse monitoring (8)anxiety Patient present anxiety in the morning, We will order low dosage of ativan for pt as needed. - Current Meds Current Meds: Current Medications Generic Name Dose Route Start Last Admin Trade Name Freq PRN Reason Stop Dose Admin Acetaminophen 650 mg 07/29/20 02:48 08/01/20 04:53 Acetaminophen 325 Mg Tablet PO 650 mg Q4HR PRN Administration Pain or Fever > 38C (100.4F) Dexamethasone 6 mg 07/29/20 12:00 08/01/20 09:04 Dexamethasone 4 Mg/Ml Vial IVP 08/02/20 12:00 6 mg DAILY [facility] Administration Docusate Sodium 250 - 500 mg 07/30/20 11:00 08/01/20 09:06 Docusate Sodium 250 Mg Capsule PO Not Given DAILY [facility] Enoxaparin Sodium 40 mg 07/29/20 09:00 08/01/20 09:06 Enoxaparin 40 Mg/0.4 Ml Syringe SUBQ 40 mg DAILY [facility] Administration Famotidine 20 mg 07/29/20 09:00 08/01/20 09:05 Famotidine 20 Mg/2 Ml Vial IVP 20 mg BID [facility] Administration Gabapentin 100 mg 07/29/20 18:00 08/01/20 04:55 Gabapentin 100 Mg Capsule PO 100 mg TID [facility] Administration Remdesivir 100 mg/ Sodium 100 mls @ 200 mls/hr 07/30/20 09:00 08/01/20 10:05 Chloride IV 08/02/20 09:29 Infused DAILY [facility] Infusion Sodium Chloride 1,000 mls @ 75 mls/hr 07/31/20 14:19 08/01/20 01:15 Normal Saline 0.9% IV 08/01/20 16:58 75 mls/hr .[id number] [facility] Administration Ibuprofen 400 mg 07/30/20 10:52 07/30/20 19:11 Ibuprofen 400 Mg Tablet PO 400 mg Q6HR PRN Administration PAIN Lorazepam 0.25 mg 07/30/20 12:35 08/01/20 12:26 Lorazepam 0.5 Mg Tablet PO 0.25 mg Q8H PRN Administration Anxiety Metoprolol Tartrate 25 mg 07/31/20 21:00 08/01/20 09:00 Metoprolol Tartrate 25 Mg Tablet PO 25 mg BID [facility] Administration Morphine Sulfate 1 mg 08/01/20 09:21 08/01/20 11:29 Morphine 2 Mg/Ml Carpuject IVP 1 mg Q4HR PRN Administration PAIN Multivitamins/Minerals 1 tab 07/29/20 12:00 08/01/20 09:00 Multivitamin W/Minerals Tablet PO 1 tab DAILYWM [facility] Administration Non-Formulary Medication 50 mg 07/30/20 13:00 08/01/20 09:07 Lorlatinib [Lorbrena] PO 50 mg DAILY [facility] Administration Oxycodone HCl 2.5 mg 07/29/20 17:04 08/01/20 04:55 Oxycodone 5 Mg Tablet PO 2.5 mg Q6HR PRN Administration PAIN Polyethylene Glycol 17 gm 07/30/20 11:00 08/01/20 09:06 Polyethylene Glycol 3350 17 Gm Packet PO Not Given DAILY [facility] Sodium Chloride 10 ml 07/29/20 02:48 07/30/20 09:46 Sodium Chloride Flush 0.9% 10 Ml Syringe IVP 10 ml PRN PRN Administration NEEDED PER PROVIDER ORDERS Sodium Chloride 10 ml 07/29/20 09:00 08/01/20 09:07 Sodium Chloride Flush 0.9% 10 Ml Syringe IVP 10 ml 0100,0900,1700 [facility] Administration Temazepam 15 mg 07/31/20 21:00 07/31/20 21:40 Temazepam 15 Mg Capsule PO 15 mg QPM [facility] Administration - Lab Result Fish Bone Diagrams: 08/01/20 06:17 08/01/20 06:17 - Additional Planning My Orders: My Active Orders 07/31/20 14:19 Sodium Chloride 0.9% [Normal Saline 0.9%] 1,000 ml IV 75 mls/hr 07/31/20 19:00 hydrALAZINE INJ [Apresoline Inj] 10 mg IVP QID PRN 07/31/20 21:00 Metoprolol Tartrate [Lopressor] 25 mg PO BID Temazepam [Restoril] 15 mg PO QPM 08/01/20 09:21 Morphine Inj (Carpuject) [Morphine (Carpuject)] 1 mg IVP Q4HR PRN 08/02/20 05:00 CBC - COMP BLD CT W/AUTO DIFF [HEME] DAILYLAB CMP [COMPREHENSIVE METABOLIC PANEL] [CHEM] DAILYLAB 08/03/20 05:00 CBC - COMP BLD CT W/AUTO DIFF [HEME] DAILYLAB CMP [COMPREHENSIVE METABOLIC PANEL] [CHEM] DAILYLAB 08/04/20 05:00 CBC - COMP BLD CT W/AUTO DIFF [HEME] DAILYLAB CMP [COMPREHENSIVE METABOLIC PANEL] [CHEM] DAILYLAB Subjective - Subjective Patient Reports: Feeling Better Objective Vital Signs: Vital Signs - 24 hr 07/31/20 07/31/20 07/31/20 14:38 16:12 16:20 Temperature Heart Rate Heart Rate [ 93 Brachial] Heart Rate [ 96 Sitting] Respiratory 23 20 Rate Blood Pressure Blood Pressure 143/77 H [Right Brachial artery] Blood Pressure 175/85 H [Sitting] O2 Saturation 93 94 07/31/20 07/31/20 07/31/20 17:00 19:43 20:15 Temperature 36.8 C 36.7 C 36.7 C Heart Rate 99 Heart Rate [ 99 Brachial] Heart Rate [ Sitting] Respiratory 18 18 Rate Blood Pressure Blood Pressure 125/81 H [Right Brachial artery] Blood Pressure [Sitting] O2 Saturation 92 92 08/01/20 08/01/20 08/01/20 00:00 03:01 05:08 Temperature 36.7 C 36.2 C L Heart Rate Heart Rate [ 82 104 H Brachial] Heart Rate [ Sitting] Respiratory 23 22 Rate Blood Pressure Blood Pressure 154/68 H 166/91 H [Right Brachial artery] Blood Pressure [Sitting] O2 Saturation 96 98 95 08/01/20 08/01/20 08/01/20 08:17 09:00 09:21 Temperature Heart Rate Heart Rate [ 109 H Brachial] Heart Rate [ Sitting] Respiratory 24 25 H Rate Blood Pressure 145/76 H Blood Pressure 163/85 H [Right Brachial artery] Blood Pressure [Sitting] O2 Saturation 90 L 95 08/01/20 11:55 Temperature Heart Rate Heart Rate [ Brachial] Heart Rate [ 87 Sitting] Respiratory Rate Blood Pressure Blood Pressure [Right Brachial artery] Blood Pressure 158/78 H [Sitting] O2 Saturation Oxygen O2 Source Nasal cannula I&O (Last 24 Hrs): Intake and Output Totals x24h 07/30/20 07/31/20 08/01/20 23:59 23:59 23:59 Intake Total 2186.333 2638.70 1098.75 Output Total 1400 300 500 Balance 008.199 2082.70 598.75 General: Alert, No acute distress HEENT: Atraumatic Neck: Supple Lymphatic: no adenopathy Neuro: Alert, Non Focal Cardiovascular: Regular rate, Normal S1 Respiratory: Chest non-tender Abdomen: Normal bowel sounds, Soft Extremities: Normal pulses - Results Results: Laboratory Results WBC 14.1 x10^3/uL (4.8-10.8) H 08/01/20 06:17 RBC 3.82 10^6/uL (4.20-5.40) L 08/01/20 06:17 Hgb 9.6 g/dL (12.0-16.0) L 08/01/20 06:17 Hct 30.1 % (37.0-47.0) L 08/01/20 06:17 MCV 78.8 fL (81.0-99.0) L 08/01/20 06:17 MCH 25.1 pg (27.0-31.0) L 08/01/20 06:17 MCHC 31.9 g/dL (32.0-36.0) L 08/01/20 06:17 RDW 20.0 % (12.0-15.0) H 08/01/20 06:17 Plt Count 234 10^3/uL (130-450) 08/01/20 06:17 MPV 9.5 fL (7.9-10.8) 08/01/20 06:17 Neut # (Auto) Not Reportable 08/01/20 06:17 Lymph # (Auto) Not Reportable 08/01/20 06:17 [place] # (Auto) Not Reportable 08/01/20 06:17 Eos # (Auto) Not Reportable 08/01/20 06:17 Baso # (Auto) Not Reportable 08/01/20 06:17 Absolute Nucleated RBC Not Reportable 08/01/20 06:17 Band Neuts % (Manual) Not Reportable 08/01/20 06:17 Abnorm Lymph % (Manual) Not Reportable 08/01/20 06:17 Nucleated RBC % Not Reportable 08/01/20 06:17 Neutrophils # (Manual) Not Reportable 08/01/20 06:17 Lymphocytes # (Manual) Not Reportable 08/01/20 06:17 Monocytes # (Manual) Not Reportable 08/01/20 06:17 Eosinophils # (Manual) Not Reportable 08/01/20 06:17 Basophils # (Manual) Not Reportable 08/01/20 06:17 Differential Comment MANUAL DIFFERENTIAL 08/01/20 06:17 WBC Morphology NORMAL APPEARANCE (NORMAL) 08/01/20 06:17 Platelet Estimate NORMAL (130-450,000) (NORMAL) 08/01/20 06:17 Platelet Morphology NORMAL APPEARANCE (NORMAL) 08/01/20 06:17 RBC Morph Micro Appear NORMAL APPEARANCE (NORMAL) 08/01/20 06:17 Sodium 135 mmol/L (135-145) 08/01/20 06:17 Potassium 3.3 mmol/L (3.5-5.0) L 08/01/20 06:17 Chloride 105 mmol/L (101-111) 08/01/20 06:17 Carbon Dioxide 22 mmol/L (21-32) 08/01/20 06:17 Anion Gap 8.0 (6-13) 08/01/20 06:17 BUN 16 mg/dL (6-20) 08/01/20 06:17 Creatinine 0.4 mg/dL (0.4-1.0) 08/01/20 06:17 Estimated GFR (MDRD) 155 (>89) 08/01/20 06:17 Glucose 102 mg/dL (70-100) H 08/01/20 06:17 Calcium 8.0 mg/dL (8.5-10.3) L 08/01/20 06:17 Magnesium 1.9 mg/dL (1.7-2.8) 07/29/20 05:14 Iron 41 ug/dL (28-170) 07/29/20 05:14 TIBC 259 ug/dL (250-450) 07/29/20 05:14 % Saturation 16 % (20-50) L 07/29/20 05:14 Transferrin 185 mg/dL (192-382) L 07/29/20 05:14 Total Bilirubin 0.8 mg/dL (0.2-1.0) 08/01/20 06:17 AST 37 IU/L (10-42) 08/01/20 06:17 ALT 21 IU/L (10-60) 08/01/20 06:17 Alkaline Phosphatase 595 IU/L (42-121) H 08/01/20 06:17 Total Protein 5.4 g/dL (6.7-8.2) L 08/01/20 06:17 Albumin 2.8 g/dL (3.2-5.5) L 08/01/20 06:17 Globulin 2.6 g/dL (2.1-4.2) 08/01/20 06:17 Albumin/Globulin Ratio 1.1 (1.0-2.2) 08/01/20 06:17 Lipase 35 U/L (22-51) 07/29/20 05:14 Vitamin B12 2850 pg/mL (180-914) H 07/29/20 05:14 Folate 44.00 ng/mL (5.90 - >24.8) 07/30/20 04:26 Stl C. diff Tox B Gene NEGATIVE (NEGATIVE) 07/30/20 14:10 Blood Type B POSITIVE 07/29/20 08:55 Antibody Screen NEGATIVE 07/29/20 08:55 Crossmatch IS Only See Detail 07/29/20 08:55 - Procedures Procedures: Procedures COLONOSCOPY (06/29/13) ABX Reporting Has patient been on IV antibiotics over the past 48 hours?: No Current Medications - Current Medications Current Medications: Active Medications Acetaminophen (Acetaminophen 325 Mg Tablet) 650 mg PO Q4HR PRN PRN Reason: Pain or Fever > 38C (100.4F) Last Admin: 08/01/20 04:53 Dose: 650 mg Documented by: Albuterol (Albuterol 1 Puff) 2 puffs INH RTQ4H PRN PRN Reason: Wheezing Stop: 08/06/20 07:10 Dexamethasone (Dexamethasone 4 Mg/Ml Vial) 6 mg IVP DAILY [facility] Stop: 08/02/20 12:00 Last Admin: 08/01/20 09:04 Dose: 6 mg Documented by: Docusate Sodium (Docusate Sodium 250 Mg Capsule) 250 - 500 mg PO DAILY [facility] Last Admin: 08/01/20 09:06 Dose: Not Given Documented by: Enoxaparin Sodium (Enoxaparin 40 Mg/0.4 Ml Syringe) 40 mg SUBQ DAILY [facility] Last Admin: 08/01/20 09:06 Dose: 40 mg Documented by: Famotidine (Famotidine 20 Mg/2 Ml Vial) 20 mg IVP BID [facility] Last Admin: 08/01/20 09:05 Dose: 20 mg Documented by: Gabapentin (Gabapentin 100 Mg Capsule) 100 mg PO TID [facility] Last Admin: 08/01/20 04:55 Dose: 100 mg Documented by: Hydralazine HCl (Hydralazine Inj 20 Mg/Ml Vial) 10 mg IVP QID PRN PRN Reason: Hypertensive Emergency Remdesivir 100 mg/ Sodium (Chloride) 100 mls @ 200 mls/hr IV DAILY [facility] Stop: 08/02/20 09:29 Last Infusion: 08/01/20 10:05 Dose: Infused Documented by: Sodium Chloride (Normal Saline 0.9%) 1,000 mls @ 75 mls/hr IV .[id number] [facility] Stop: 08/01/20 16:58 Last Admin: 08/01/20 01:15 Dose: 75 mls/hr Documented by: Ibuprofen (Ibuprofen 400 Mg Tablet) 400 mg PO Q6HR PRN PRN Reason: PAIN Last Admin: 07/30/20 19:11 Dose: 400 mg Documented by: Lorazepam (Lorazepam 0.5 Mg Tablet) 0.25 mg PO Q8H PRN PRN Reason: Anxiety Last Admin: 08/01/20 12:26 Dose: 0.25 mg Documented by: Metoprolol Tartrate (Metoprolol Tartrate 25 Mg Tablet) 25 mg PO BID [facility] Last Admin: 08/01/20 09:00 Dose: 25 mg Documented by: Morphine Sulfate (Morphine 2 Mg/Ml Carpuject) 1 mg IVP Q4HR PRN PRN Reason: PAIN Last Admin: 08/01/20 11:29 Dose: 1 mg Documented by: Multivitamins/Minerals (Multivitamin W/Minerals Tablet) 1 tab PO DAILYWM [facility] Last Admin: 08/01/20 09:00 Dose: 1 tab Documented by: Non-Formulary Medication (Lorlatinib [Lorbrena]) 50 mg PO DAILY [facility] Last Admin: 08/01/20 09:07 Dose: 50 mg Documented by: Ondansetron HCl (Ondansetron 4 Mg/2 Ml Vial) 4 mg IVP Q6HR PRN PRN Reason: Nausea / Vomiting Oxycodone HCl (Oxycodone 5 Mg Tablet) 2.5 mg PO Q6HR PRN PRN Reason: PAIN Last Admin: 08/01/20 04:55 Dose: 2.5 mg Documented by: Polyethylene Glycol (Polyethylene Glycol 3350 17 Gm Packet) 17 gm PO DAILY [facility] Last Admin: 08/01/20 09:06 Dose: Not Given Documented by: Prochlorperazine Edisylate (Prochlorperazine 10 Mg/2 Ml Vial) 10 mg IVP Q6HR PRN PRN Reason: Nausea / Vomiting Sodium Chloride (Sodium Chloride Flush 0.9% 10 Ml Syringe) 10 ml IVP PRN PRN PRN Reason: NEEDED PER PROVIDER ORDERS Last Admin: 07/30/20 09:46 Dose: 10 ml Documented by: Sodium Chloride (Sodium Chloride Flush 0.9% 10 Ml Syringe) 10 ml IVP 0100,0900,1700 [facility] Last Admin: 08/01/20 09:07 Dose: 10 ml Documented by: Temazepam (Temazepam 15 Mg Capsule) 15 mg PO QPM [facility] Last Admin: 07/31/20 21:40 Dose: 15 mg Documented by: Gabapentin [Neurontin] 100 mg PO TID 07/28/20 Lorlatinib [Lorbrena] 50 mg PO DAILY 07/28/20
[2020-08-01] MEDS: TEMAZEPAM 15 MG CAPSULE PO SCH (21:53)
[2020-08-02 05:26] LABS: BASOPHILS # (AUTO) 0.1 10^3/uL (0.0-0.1); BASOPHILS % (AUTO) 0.5 %; EOSINOPHILS # (AUTO) 0.1 10^3/uL (0.0-0.7); EOSINOPHILS % (AUTO) 0.4 %; LYMPHOCYTES # (AUTO) 4.2 10^3/uL (1.5-3.5); LYMPHOCYTES % (AUTO) 24.7 %; MEAN CORPUSCULAR HEMOGLOBIN 24.8 pg (27.0-31.0); MEAN CORPUSCULAR HGB CONC 31.5 g/dL (32.0-36.0); MEAN CORPUSCULAR VOLUME 78.7 fL (81.0-99.0); MEAN PLATELET VOLUME 10.6 fL (7.9-10.8); MONOCYTES # (AUTO) 1.8 10^3/uL (0.0-1.0); MONOCYTES % (AUTO) 10.6 %; NEUTROPHILS # (AUTO) 10.2 10^3/uL (1.5-6.6); NEUTROPHILS % (AUTO) 60.7 %; PLT - PLATELET COUNT 336 10^3/uL (130-450); RED BLOOD COUNT 4.03 10^6/uL (4.20-5.40); RED CELL DISTRIBUTION WIDTH 20.6 % (12.0-15.0); WHITE BLOOD COUNT 16.8 x10^3/uL (4.8-10.8)
[2020-08-02 05:39] LABS: ALBUMIN 3.2 g/dL (3.2-5.5); CALCIUM 8.6 mg/dL (8.5-10.3); CREATININE 0.4 mg/dL (0.4-1.0); TOTAL PROTEIN 6.3 g/dL (6.7-8.2)
[2020-08-02] MEDS: SODIUM CHLORIDE FLUSH 0.9% 10 ML SYRINGE IVP SCH ×3 (05:40→16:40)
[2020-08-02] MEDS: ACETAMINOPHEN 325 MG TABLET PO PRN ×2 (05:41→11:34)
[2020-08-02] MEDS: GABAPENTIN 100 MG CAPSULE PO SCH ×3 (05:42→21:33)
[2020-08-02] MEDS: LORazepam 0.5 MG TABLET PO PRN (05:42)
--- NOTE | 2020-08-02 07:26 | PROVIDER PROGRESS NOTE ---
Subjective - Prog Note Date Prog Note Date: 08/02/20 - Subjective Subjective: She reports feeling well. Denies chest pain or dyspnea at this time. She has been eating without difficulty. Current Medications - Current Medications Current Medications: Active Medications Acetaminophen (Acetaminophen 325 Mg Tablet) 650 mg PO Q4HR PRN PRN Reason: Pain or Fever > 38C (100.4F) Last Admin: 08/02/20 11:34 Dose: 650 mg Documented by: Albuterol (Albuterol 1 Puff) 2 puffs INH RTQ4H PRN PRN Reason: Wheezing Stop: 08/06/20 07:10 Docusate Sodium (Docusate Sodium 250 Mg Capsule) 250 - 500 mg PO DAILY [facility] Last Admin: 08/02/20 09:09 Dose: Not Given Documented by: Enoxaparin Sodium (Enoxaparin 40 Mg/0.4 Ml Syringe) 40 mg SUBQ DAILY [facility] Last Admin: 08/02/20 09:08 Dose: 40 mg Documented by: Famotidine (Famotidine 20 Mg/2 Ml Vial) 20 mg IVP BID [facility] Last Admin: 08/02/20 09:06 Dose: 20 mg Documented by: Gabapentin (Gabapentin 100 Mg Capsule) 100 mg PO TID [facility] Last Admin: 08/02/20 13:20 Dose: 100 mg Documented by: Hydralazine HCl (Hydralazine Inj 20 Mg/Ml Vial) 10 mg IVP QID PRN PRN Reason: Hypertensive Emergency Azithromycin 500 mg/ Sodium (Chloride) 250 mls @ 250 mls/hr IV DAILY [facility] Stop: 08/04/20 09:59 Ceftriaxone Sodium 1 gm/ (Sodium Chloride) 100 mls @ 200 mls/hr IV DAILY [facility] Stop: 08/06/20 09:29 Ibuprofen (Ibuprofen 400 Mg Tablet) 400 mg PO Q6HR PRN PRN Reason: PAIN Last Admin: 07/30/20 19:11 Dose: 400 mg Documented by: Lorazepam (Lorazepam 0.5 Mg Tablet) 0.25 mg PO Q8H PRN PRN Reason: Anxiety Last Admin: 08/02/20 05:42 Dose: 0.25 mg Documented by: Metoprolol Tartrate (Metoprolol Tartrate 25 Mg Tablet) 25 mg PO BID [facility] Last Admin: 08/02/20 09:28 Dose: 25 mg Documented by: Multivitamins/Minerals (Multivitamin W/Minerals Tablet) 1 tab PO DAILYWM [facility] Last Admin: 08/02/20 09:29 Dose: 1 tab Documented by: Non-Formulary Medication (Lorlatinib [Lorbrena]) 50 mg PO DAILY [facility] Last Admin: 08/02/20 09:29 Dose: 50 mg Documented by: Ondansetron HCl (Ondansetron 4 Mg/2 Ml Vial) 4 mg IVP Q6HR PRN PRN Reason: Nausea / Vomiting Last Admin: 08/02/20 11:35 Dose: 4 mg Documented by: Oxycodone HCl (Oxycodone 5 Mg Tablet) 2.5 mg PO Q6HR PRN PRN Reason: PAIN Last Admin: 08/01/20 04:55 Dose: 2.5 mg Documented by: Polyethylene Glycol (Polyethylene Glycol 3350 17 Gm Packet) 17 gm PO DAILY [facility] Last Admin: 08/02/20 09:08 Dose: Not Given Documented by: Prochlorperazine Edisylate (Prochlorperazine 10 Mg/2 Ml Vial) 10 mg IVP Q6HR PRN PRN Reason: Nausea / Vomiting Sodium Chloride (Sodium Chloride Flush 0.9% 10 Ml Syringe) 10 ml IVP PRN PRN PRN Reason: NEEDED PER PROVIDER ORDERS Last Admin: 07/30/20 09:46 Dose: 10 ml Documented by: Sodium Chloride (Sodium Chloride Flush 0.9% 10 Ml Syringe) 10 ml IVP 0100,0900,1700 [facility] Last Admin: 08/02/20 09:09 Dose: 10 ml Documented by: Temazepam (Temazepam 15 Mg Capsule) 15 mg PO QPM [facility] Last Admin: 08/01/20 21:53 Dose: 15 mg Documented by: Gabapentin [Neurontin] 100 mg PO TID 07/28/20 Lorlatinib [Lorbrena] 50 mg PO DAILY 07/28/20 Objective - Vital Signs/Intake & Output Reviewed Vital Signs: Yes Vital Signs: Vital Signs x48h Temp Pulse Resp BP Pulse Ox 08/02/20 06:59 78 18 98 08/02/20 05:48 154/98 H 08/02/20 05:40 36.5 C 20 97 08/02/20 04:05 108 H 20 08/02/20 02:48 69 20 08/02/20 01:42 72 18 08/02/20 00:00 95 20 97 08/01/20 23:57 18 08/01/20 23:50 71 Intake & Output: Intake & Output 07/30/20 07/31/20 08/01/20 08/02/20 23:59 23:59 23:59 23:59 Intake Total 2186.333 2638.70 2758.75 Output Total 1400 300 600 Balance 960.907 8910.70 2158.75 - Objective General Appearance: positive: No acute distress, Alert Eyes Bilateral: positive: Normal inspection, Conjunctivae nml ENT: positive: ENT inspection nml, Other (Nasal cannula in place.) Neck: positive: Nml inspection Respiratory: positive: No respiratory distress, Other (Breath sounds on left side. Faint rhonchi throughout right lung field.). negative: Wheezes, Rales Cardiovascular: positive: Regular rate & rhythm, No murmur. negative: Tachycardia Abdomen: positive: Non-tender, No distention. negative: Tenderness Skin: positive: Warm, Dry Extremities: positive: No pedal edema - Lab Results Fish Bones: 08/02/20 04:50 08/02/20 04:50 Other Labs: Lab Results x24hrs 08/02/20 08/02/20 Range/Units 04:50 04:50 WBC 16.8 H (4.8-10.8) x10^3/uL RBC 4.03 L (4.20-5.40) 10^6/uL Hgb 10.0 L (12.0-16.0) g/dL Hct 31.7 L (37.0-47.0) % MCV 78.7 L (81.0-99.0) fL MCH 24.8 L (27.0-31.0) pg MCHC 31.5 L (32.0-36.0) g/dL RDW 20.6 H (12.0-15.0) % Plt Count 336 (130-450) 10^3/uL MPV 10.6 (7.9-10.8) fL Neut # (Auto) 10.2 H (1.5-6.6) 10^3/uL Lymph # (Auto) 4.2 H (1.5-3.5) 10^3/uL [place] # (Auto) 1.8 H (0.0-1.0) 10^3/uL Eos # (Auto) 0.1 (0.0-0.7) 10^3/uL Baso # (Auto) 0.1 (0.0-0.1) 10^3/uL Absolute Nucleated RBC 0.03 x10^3/uL Nucleated RBC % 0.2 /100WBC Sodium 135 (135-145) mmol/L Potassium 3.6 (3.5-5.0) mmol/L Chloride 102 (101-111) mmol/L Carbon Dioxide 24 (21-32) mmol/L Anion Gap 9.0 (6-13) BUN 20 (6-20) mg/dL Creatinine 0.4 (0.4-1.0) mg/dL Estimated GFR (MDRD) 155 (>89) Glucose 97 (70-100) mg/dL Calcium 8.6 (8.5-10.3) mg/dL Total Bilirubin 1.0 (0.2-1.0) mg/dL AST 38 (10-42) IU/L ALT 22 (10-60) IU/L Alkaline Phosphatase 657 H (42-121) IU/L Total Protein 6.3 L (6.7-8.2) g/dL Albumin 3.2 (3.2-5.5) g/dL Globulin 3.1 (2.1-4.2) g/dL Albumin/Globulin Ratio 1.0 (1.0-2.2) ABX Reporting Has patient been on IV antibiotics over the past 48 hours?: No Assessment/Plan - Problem List (1) Acute respiratory failure with hypoxia Impression: Secondary to COVID-19. She appears to be improving. Although she remains on 2 L, her oxygen saturations are now in the mid 90s to high 90s compared to low 90s yesterday. She has completed therapy but she does remain on Decadron. We will continue submental oxygen and wean as tolerated for goal oxygen saturation greater than 92%. (2) Pneumonia due to COVID-19 virus Impression: Her x-ray on admission revealed infiltrates and she is Covid positive. She appears to be clinically improving assess oxygen saturations are improved on 2 L of oxygen. She has received remdesivir and Decadron. Her white count is increased today and so we will start her on antibiotics with ceftriaxone and azithromycin for community-acquired pneumonia as there could be a component of bacterial infection as well. We will continue with Decadron. Continue contact precautions. We will repeat chest x-ray today. (3) Anemia Impression: This appears to be secondary to her malignancy. She received 2 units of packed red blood cell with an appropriate response. Her hemoglobin has been stable since then without evidence of bleeding. We will continue to monitor. (4) Lung cancer metastatic to bone Impression: Her admission was discussed with her oncologist a few days ago and they recommended continuing her immunotherapy which we have done. She will continue outpatient follow-up with her oncologist
[2020-08-02] MEDS: REMDESIVIR 100MG VIAL 100 MG in SODIUM CHLORIDE 0.9% 100ML 100 ML IV SCH (09:02)
[2020-08-02] MEDS: DEXAMETHASONE 4 MG/ML VIAL IVP SCH (09:05)
[2020-08-02] MEDS: FAMOTIDINE 20 MG/2 ML VIAL IVP SCH ×2 (09:06→21:33)
[2020-08-02] MEDS: ENOXAPARIN 40 MG/0.4 ML SYRINGE SUBQ SCH (09:08)
[2020-08-02] MEDS: polyethylene glycoL 3350 17 GM PACKET PO SCH (09:08)
[2020-08-02] MEDS: DOCUSATE SODIUM 250 MG CAPSULE PO SCH (09:09)
[2020-08-02] MEDS: METOPROLOL TARTRATE 25 MG TABLET PO SCH ×2 (09:28→21:33)
[2020-08-02] MEDS: LORLATINIB 25 MG PO SCH (09:29)
[2020-08-02] MEDS: MULTIVITAMIN W/MINERALS TABLET PO SCH (09:29)
[2020-08-02] MEDS: IBUPROFEN 400 MG TABLET PO PRN (16:09)
[2020-08-02] MEDS: AZITHROMYCIN INJ 500 MG in SODIUM CHLORIDE 0.9% 250 ML IV SCH (16:10)
[2020-08-02] MEDS: cefTRIAXone 1 GM in SODIUM CHLORIDE 0.9% MINIBAG 100 ML IV SCH (16:10)
--- NOTE | 2020-08-02 17:10 | XRAY Report ---
PROCEDURE: Chest 1 View X-Ray INDICATIONS: Follow up infiltrates. TECHNIQUE: One view of the chest was acquired. COMPARISON: Chest radiograph dated 02/24/2019 and 07/28/2019 oh FINDINGS: Surgical changes and devices: Status post left pneumonectomy. Mediastinal shift of the trachea to the left. Lungs and pleura: Patchy opacities throughout the right lung are again noted, slightly worsened from prior exam. There is a small amount of fluid within the fissure. Mild prominence of the pulmonary vas culature. Mediastinum: Mediastinal structures are unchanged within limits of this examination with shift of the mediastinum to the left. Bones and chest wall: Stable compression deformity of the midthoracic vertebra Overlying soft tissues appear unremarkable. IMPRESSION: Patchy opacities throughout the lung are slightly worsened from comparison with increased interstitia l changes. This may represent an infectious process versus pulmonary edema. Reviewed by: Benigno Montiel DO on 08/02/2020 4:08 PM [facility] Approved by: Benigno Montiel DO on 08/02/2020 4:08 PM [facility] Station ID: [id number]
[2020-08-02] MEDS: TEMAZEPAM 15 MG CAPSULE PO SCH (21:34)
[2020-08-03] MEDS: SODIUM CHLORIDE FLUSH 0.9% 10 ML SYRINGE IVP SCH ×4 (01:19→23:58)
[2020-08-03] MEDS: GABAPENTIN 100 MG CAPSULE PO SCH ×3 (05:26→21:18)
[2020-08-03 05:27] LABS: BASOPHILS # (AUTO) 0.1 10^3/uL (0.0-0.1); BASOPHILS % (AUTO) 0.6 %; EOSINOPHILS # (AUTO) 0.1 10^3/uL (0.0-0.7); HGB - HEMOGLOBIN 8.9 g/dL (12.0-16.0); LYMPHOCYTES % (AUTO) 20.7 %; MEAN CORPUSCULAR HEMOGLOBIN 25.4 pg (27.0-31.0); MEAN CORPUSCULAR VOLUME 79.4 fL (81.0-99.0); MEAN PLATELET VOLUME 10.8 fL (7.9-10.8); MONOCYTES # (AUTO) 1.5 10^3/uL (0.0-1.0); MONOCYTES % (AUTO) 10.3 %; NEUTROPHILS % (AUTO) 62.5 %; PLT - PLATELET COUNT 304 10^3/uL (130-450); RED CELL DISTRIBUTION WIDTH 21.8 % (12.0-15.0); WHITE BLOOD COUNT 14.4 x10^3/uL (4.8-10.8)
[2020-08-03 05:41] LABS: ALBUMIN 2.7 g/dL (3.2-5.5); ALBUMIN/GLOBULIN RATIO 0.9 (1.0-2.2); BILIRUBIN,TOTAL 0.8 mg/dL (0.2-1.0); CALCIUM 8.4 mg/dL (8.5-10.3); CREATININE 0.4 mg/dL (0.4-1.0); TOTAL PROTEIN 5.6 g/dL (6.7-8.2)
[2020-08-03] MEDS: ACETAMINOPHEN 325 MG TABLET PO PRN ×3 (06:02→20:33)
--- NOTE | 2020-08-03 07:41 | PROVIDER PROGRESS NOTE ---
Subjective - Prog Note Date Prog Note Date: 08/03/20 - Subjective Subjective: She denies feeling short of breath. Reports no cough. She is looking forward to going home. Denies pain. Current Medications - Current Medications Current Medications: Active Medications Acetaminophen (Acetaminophen 325 Mg Tablet) 650 mg PO Q4HR PRN PRN Reason: Pain or Fever > 38C (100.4F) Last Admin: 08/03/20 13:32 Dose: 650 mg Documented by: Albuterol (Albuterol 1 Puff) 2 puffs INH RTQ4H PRN PRN Reason: Wheezing Stop: 08/06/20 07:10 Docusate Sodium (Docusate Sodium 250 Mg Capsule) 250 - 500 mg PO DAILY [facility] Last Admin: 08/03/20 09:37 Dose: Not Given Documented by: Enoxaparin Sodium (Enoxaparin 40 Mg/0.4 Ml Syringe) 40 mg SUBQ DAILY [facility] Last Admin: 08/03/20 09:29 Dose: 40 mg Documented by: Famotidine (Famotidine 20 Mg/2 Ml Vial) 20 mg IVP BID [facility] Last Admin: 08/03/20 09:22 Dose: 20 mg Documented by: Gabapentin (Gabapentin 100 Mg Capsule) 100 mg PO TID [facility] Last Admin: 08/03/20 13:32 Dose: 100 mg Documented by: Hydralazine HCl (Hydralazine Inj 20 Mg/Ml Vial) 10 mg IVP QID PRN PRN Reason: Hypertensive Emergency Azithromycin 500 mg/ Sodium (Chloride) 250 mls @ 250 mls/hr IV DAILY [facility] Stop: 08/04/20 09:59 Last Infusion: 08/03/20 12:29 Dose: Infused Documented by: Ceftriaxone Sodium 1 gm/ (Sodium Chloride) 100 mls @ 200 mls/hr IV DAILY [facility] Stop: 08/06/20 09:29 Last Infusion: 08/03/20 11:17 Dose: Infused Documented by: Ibuprofen (Ibuprofen 400 Mg Tablet) 400 mg PO Q6HR PRN PRN Reason: PAIN Last Admin: 08/03/20 09:18 Dose: 400 mg Documented by: Lorazepam (Lorazepam 0.5 Mg Tablet) 0.25 mg PO Q8H PRN PRN Reason: Anxiety Last Admin: 08/02/20 05:42 Dose: 0.25 mg Documented by: Metoprolol Tartrate (Metoprolol Tartrate 25 Mg Tablet) 25 mg PO BID [facility] Last Admin: 08/03/20 09:21 Dose: 25 mg Documented by: Multivitamins/Minerals (Multivitamin W/Minerals Tablet) 1 tab PO DAILYWM [facility] Last Admin: 08/03/20 09:18 Dose: 1 tab Documented by: Non-Formulary Medication (Lorlatinib [Lorbrena]) 50 mg PO DAILY [facility] Last Admin: 08/03/20 09:18 Dose: 50 mg Documented by: Ondansetron HCl (Ondansetron 4 Mg/2 Ml Vial) 4 mg IVP Q6HR PRN PRN Reason: Nausea / Vomiting Last Admin: 08/02/20 11:35 Dose: 4 mg Documented by: Oxycodone HCl (Oxycodone 5 Mg Tablet) 2.5 mg PO Q6HR PRN PRN Reason: PAIN Last Admin: 08/01/20 04:55 Dose: 2.5 mg Documented by: Polyethylene Glycol (Polyethylene Glycol 3350 17 Gm Packet) 17 gm PO DAILY [facility] Last Admin: 08/03/20 09:37 Dose: Not Given Documented by: Prochlorperazine Edisylate (Prochlorperazine 10 Mg/2 Ml Vial) 10 mg IVP Q6HR PRN PRN Reason: Nausea / Vomiting Sodium Chloride (Sodium Chloride Flush 0.9% 10 Ml Syringe) 10 ml IVP PRN PRN PRN Reason: NEEDED PER PROVIDER ORDERS Last Admin: 07/30/20 09:46 Dose: 10 ml Documented by: Sodium Chloride (Sodium Chloride Flush 0.9% 10 Ml Syringe) 10 ml IVP 0100,0900,1700 [facility] Last Admin: 08/03/20 09:37 Dose: 10 ml Documented by: Temazepam (Temazepam 15 Mg Capsule) 15 mg PO QPM [facility] Last Admin: 08/02/20 21:34 Dose: 15 mg Documented by: Gabapentin [Neurontin] 100 mg PO TID 07/28/20 Lorlatinib [Lorbrena] 50 mg PO DAILY 07/28/20 Objective - Vital Signs/Intake & Output Reviewed Vital Signs: Yes Vital Signs: Vital Signs x48h Temp Pulse Resp BP Pulse Ox 08/03/20 06:50 93 08/03/20 05:30 88 L 08/03/20 05:00 37.2 C 94 22 170/91 H 91 L 08/03/20 01:00 78 22 137/73 H 94 Intake & Output: Intake & Output 07/31/20 08/01/20 08/02/20 08/03/20 23:59 23:59 23:59 23:59 Intake Total 2638.70 2758.75 990 200 Output Total 300 600 Balance 2338.70 2158.75 990 200 - Objective General Appearance: positive: No acute distress, Alert Eyes Bilateral: positive: Normal inspection, Conjunctivae nml ENT: positive: ENT inspection nml, Other (Nasal cannula in place.) Respiratory: positive: Rales, Rhonchi, Other (Absent breath sounds on left jim e.) Cardiovascular: positive: Regular rate & rhythm. negative: Tachycardia, Systolic murmur Abdomen: positive: Non-tender, No distention. negative: Tenderness Skin: positive: Warm, Dry - Lab Results Fish Bones: 08/03/20 04:20 08/03/20 04:20 Other Labs: Lab Results x24hrs 08/03/20 08/03/20 07/30/20 Range/Units 04:20 04:20 14:10 WBC 14.4 H (4.8-10.8) x10^3/uL RBC 3.50 L (4.20-5.40) 10^6/uL Hgb 8.9 L (12.0-16.0) g/dL Hct 27.8 L (37.0-47.0) % MCV 79.4 L (81.0-99.0) fL MCH 25.4 L (27.0-31.0) pg MCHC 32.0 (32.0-36.0) g/dL RDW 21.8 H (12.0-15.0) % Plt Count 304 (130-450) 10^3/uL MPV 10.8 (7.9-10.8) fL Neut # (Auto) 9.0 H (1.5-6.6) 10^3/uL Lymph # (Auto) 3.0 (1.5-3.5) 10^3/uL Scott # (Auto) 1.5 H (0.0-1.0) 10^3/uL Eos # (Auto) 0.1 (0.0-0.7) 10^3/uL Baso # (Auto) 0.1 (0.0-0.1) 10^3/uL Absolute Nucleated RBC 0.12 x10^3/uL Nucleated RBC % 0.8 /100WBC Sodium 140 (135-145) mmol/L Potassium 3.6 (3.5-5.0) mmol/L Chloride 105 (101-111) mmol/L Carbon Dioxide 26 (21-32) mmol/L Anion Gap 9.0 (6-13) BUN 18 (6-20) mg/dL Creatinine 0.4 (0.4-1.0) mg/dL Estimated GFR (MDRD) 155 (>89) Glucose 89 (70-100) mg/dL Calcium 8.4 L (8.5-10.3) mg/dL Total Bilirubin 0.8 (0.2-1.0) mg/dL AST 32 (10-42) IU/L ALT 18 (10-60) IU/L Alkaline Phosphatase 548 H (42-121) IU/L Total Protein 5.6 L (6.7-8.2) g/dL Albumin 2.7 L (3.2-5.5) g/dL Globulin 2.9 (2.1-4.2) g/dL Albumin/Globulin Ratio 0.9 L (1.0-2.2) Ref Lab Test Result REPORT ABX Reporting Has patient been on IV antibiotics over the past 48 hours?: Yes Assessment/Plan - Problem List (1) Acute respiratory failure with hypoxia Impression: Secondary to COVID-19 and possibly a component of bacterial pneumonia. She was down to 1 L of oxygen yesterday although today she is back on 2 L with oxygen saturations in low to mid 90s. At this time, we will continue ceftriaxone and azithromycin IV. We will continue Decadron for total of 10 days. She has completed 5 days of remdesivir. Continue supplemental oxygen for goal saturation greater than 92%. (2) Pneumonia due to COVID-19 virus Impression: There may be a component of bacterial pneumonia in addition to viral pneumonia. Her white count had increased yesterday but is now trending down after starting antibiotics. She has completed remdesivir and we will continue Decadron 6 mg daily. Today is day 2 of antibiotics with ceftriaxone and azithromycin. She will need 5 days of therapy. Continue management as mentioned above. (3) Anemia Impression: Her hemoglobin is slightly decreased today but overall stable. No evidence of bleeding. We will continue to monitor daily. She has already received 2 units of packed red blood cells during this hospitalization (4) Hypertension Impression: Her blood pressure has been elevated with systolic in the 140s to 150s. We will start her on amlodipine 5 mg daily. (5) Lung cancer metastatic to bone Impression: We are continuing her immunotherapy during this hospitalization as recommended by her oncologist.
[2020-08-03] MEDS: MULTIVITAMIN W/MINERALS TABLET PO SCH (09:18)
[2020-08-03] MEDS: IBUPROFEN 400 MG TABLET PO PRN ×2 (09:18→16:31)
[2020-08-03] MEDS: LORLATINIB 25 MG PO SCH (09:18)
[2020-08-03] MEDS: METOPROLOL TARTRATE 25 MG TABLET PO SCH ×2 (09:21→20:33)
[2020-08-03] MEDS: FAMOTIDINE 20 MG/2 ML VIAL IVP SCH ×2 (09:22→20:33)
[2020-08-03] MEDS: ENOXAPARIN 40 MG/0.4 ML SYRINGE SUBQ SCH (09:29)
[2020-08-03] MEDS: cefTRIAXone 1 GM in SODIUM CHLORIDE 0.9% MINIBAG 100 ML IV SCH (09:31)
[2020-08-03] MEDS: DOCUSATE SODIUM 250 MG CAPSULE PO SCH (09:37)
[2020-08-03] MEDS: polyethylene glycoL 3350 17 GM PACKET PO SCH (09:37)
[2020-08-03] MEDS: AZITHROMYCIN INJ 500 MG in SODIUM CHLORIDE 0.9% 250 ML IV SCH (11:17)
[2020-08-03] MEDS: DEXAMETHASONE 4 MG/ML VIAL IVP SCH (16:29)
[2020-08-03] MEDS: amLODIPine 5 MG TABLET PO SCH (16:29)
[2020-08-03] MEDS: LORazepam 0.5 MG TABLET PO PRN (16:32)
[2020-08-03] MEDS: TEMAZEPAM 15 MG CAPSULE PO SCH (20:33)
[2020-08-04] MEDS: GABAPENTIN 100 MG CAPSULE PO SCH ×3 (05:06→20:52)
[2020-08-04 08:19] LABS: RED CELL DISTRIBUTION WIDTH 22.5 % (12.0-15.0)
[2020-08-04 08:22] LABS: BASOPHILS % (AUTO) 0.4 %; EOSINOPHILS % (AUTO) 0.6 %; HGB - HEMOGLOBIN 9.7 g/dL (12.0-16.0); LYMPHOCYTES % (AUTO) 18.8 %; MEAN CORPUSCULAR HEMOGLOBIN 25.9 pg (27.0-31.0); MEAN CORPUSCULAR HGB CONC 31.9 g/dL (32.0-36.0); MEAN CORPUSCULAR VOLUME 81.1 fL (81.0-99.0); MEAN PLATELET VOLUME 9.8 fL (7.9-10.8); MONOCYTES % (AUTO) 10.4 %; NEUTROPHILS % (AUTO) 64.6 %; PLT - PLATELET COUNT 306 10^3/uL (130-450); RED BLOOD COUNT 3.75 10^6/uL (4.20-5.40); WHITE BLOOD COUNT 13.5 x10^3/uL (4.8-10.8)
[2020-08-04 08:36] LABS: ABNORMAL LYMPHS % (MANUAL) 0 %
[2020-08-04 08:38] LABS: BAND NEUTROPHILS % (MANUAL) 2 %; EOSINOPHILS # (MANUAL) 0.1 10^3/uL (0-0.7); LYMPHOCYTES # (MANUAL) 2.7 10^3/uL (1.5-3.5); LYMPHOCYTES % (MANUAL) 18 %; METAMYELOCYTES % (MANUAL) 2 %; MONOCYTES # (MANUAL) 1.6 10^3/uL (0.0-1.0); MYELOCYTES % (MANUAL) 1 %
[2020-08-04 08:39] LABS: DIFFERENTIAL COMMENT MANUAL DIFFERENTIAL
[2020-08-04 08:40] LABS: ALBUMIN 2.9 g/dL (3.2-5.5); CALCIUM 8.7 mg/dL (8.5-10.3); CREATININE 0.4 mg/dL (0.4-1.0); TOTAL PROTEIN 5.9 g/dL (6.7-8.2)
[2020-08-04] MEDS: MULTIVITAMIN W/MINERALS TABLET PO SCH (09:14)
[2020-08-04] MEDS: ACETAMINOPHEN 325 MG TABLET PO PRN ×2 (09:14→20:53)
[2020-08-04] MEDS: amLODIPine 5 MG TABLET PO SCH (09:15)
[2020-08-04] MEDS: DOCUSATE SODIUM 250 MG CAPSULE PO SCH ×2 (09:17→21:00)
[2020-08-04] MEDS: SODIUM CHLORIDE FLUSH 0.9% 10 ML SYRINGE IVP SCH ×2 (09:18→17:00)
[2020-08-04] MEDS: polyethylene glycoL 3350 17 GM PACKET PO SCH (09:18)
[2020-08-04] MEDS: LORLATINIB 25 MG PO SCH (09:18)
[2020-08-04] MEDS: METOPROLOL TARTRATE 25 MG TABLET PO SCH ×2 (09:23→20:59)
[2020-08-04] MEDS: ENOXAPARIN 40 MG/0.4 ML SYRINGE SUBQ SCH (09:25)
[2020-08-04] MEDS: FAMOTIDINE 20 MG/2 ML VIAL IVP SCH ×2 (09:28→20:49)
[2020-08-04] MEDS: SODIUM CHLORIDE FLUSH 0.9% 10 ML SYRINGE IVP PRN (09:30)
[2020-08-04] MEDS: DEXAMETHASONE 4 MG/ML VIAL IVP SCH (09:33)
[2020-08-04] MEDS: cefTRIAXone 1 GM in SODIUM CHLORIDE 0.9% MINIBAG 100 ML IV SCH (09:37)
[2020-08-04] MEDS: AZITHROMYCIN INJ 500 MG in SODIUM CHLORIDE 0.9% 250 ML IV SCH (10:20)
[2020-08-04] MEDS: IBUPROFEN 400 MG TABLET PO PRN (14:56)
[2020-08-04] MEDS: TEMAZEPAM 15 MG CAPSULE PO SCH (20:52)
--- NOTE | 2020-08-04 22:12 | PROVIDER PROGRESS NOTE ---
Subjective - Prog Note Date Prog Note Date: 08/04/20 Prog Note Time: 22:10 - Subjective Pt reports feeling: Improved Current Medications - Current Medications Current Medications: Active Medications Acetaminophen (Acetaminophen 325 Mg Tablet) 650 mg PO Q4HR PRN PRN Reason: Pain or Fever > 38C (100.4F) Last Admin: 08/04/20 20:53 Dose: 650 mg Documented by: Albuterol (Albuterol 1 Puff) 2 puffs INH RTQ4H PRN PRN Reason: Wheezing Stop: 08/06/20 07:10 Amlodipine Besylate (Amlodipine 5 Mg Tablet) 5 mg PO DAILY [facility] Last Admin: 08/04/20 09:15 Dose: 5 mg Documented by: Dexamethasone (Dexamethasone 4 Mg/Ml Vial) 6 mg IVP DAILY [facility] Stop: 08/07/20 09:01 Last Admin: 08/04/20 09:33 Dose: 6 mg Documented by: Docusate Sodium (Docusate Sodium 250 Mg Capsule) 250 - 500 mg PO DAILY [facility] Last Admin: 08/04/20 09:17 Dose: Not Given Documented by: Docusate Sodium (Docusate Sodium 250 Mg Capsule) 250 - 500 mg PO DAILY [facility] Docusate Sodium (Docusate Sodium 250 Mg Capsule) 250 - 500 mg PO DAILY [facility] Enoxaparin Sodium (Enoxaparin 40 Mg/0.4 Ml Syringe) 40 mg SUBQ DAILY [facility] Last Admin: 08/04/20 09:25 Dose: 40 mg Documented by: Famotidine (Famotidine 20 Mg/2 Ml Vial) 20 mg IVP BID [facility] Last Admin: 08/04/20 20:49 Dose: 20 mg Documented by: Gabapentin (Gabapentin 100 Mg Capsule) 100 mg PO TID [facility] Last Admin: 08/04/20 20:52 Dose: 100 mg Documented by: Hydralazine HCl (Hydralazine Inj 20 Mg/Ml Vial) 10 mg IVP QID PRN PRN Reason: Hypertensive Emergency Ceftriaxone Sodium 2 gm/ (Sodium Chloride) 100 mls @ 200 mls/hr IV DAILY [facility] Stop: 08/07/20 08:59 Ibuprofen (Ibuprofen 400 Mg Tablet) 400 mg PO Q6HR PRN PRN Reason: PAIN Last Admin: 08/04/20 14:56 Dose: 400 mg Documented by: Lorazepam (Lorazepam 0.5 Mg Tablet) 0.25 mg PO Q8H PRN PRN Reason: Anxiety Last Admin: 08/03/20 16:32 Dose: 0.25 mg Documented by: Metoprolol Tartrate (Metoprolol Tartrate 25 Mg Tablet) 25 mg PO BID [facility] Last Admin: 08/04/20 20:59 Dose: 25 mg Documented by: Multivitamins/Minerals (Multivitamin W/Minerals Tablet) 1 tab PO DAILYWM [facility] Last Admin: 08/04/20 09:14 Dose: 1 tab Documented by: Non-Formulary Medication (Lorlatinib [Lorbrena]) 50 mg PO DAILY [facility] Last Admin: 08/04/20 09:18 Dose: 50 mg Documented by: Ondansetron HCl (Ondansetron 4 Mg/2 Ml Vial) 4 mg IVP Q6HR PRN PRN Reason: Nausea / Vomiting Last Admin: 08/02/20 11:35 Dose: 4 mg Documented by: Oxycodone HCl (Oxycodone 5 Mg Tablet) 2.5 mg PO Q6HR PRN PRN Reason: PAIN Last Admin: 08/01/20 04:55 Dose: 2.5 mg Documented by: Polyethylene Glycol (Polyethylene Glycol 3350 17 Gm Packet) 17 gm PO DAILY [facility] Last Admin: 08/04/20 09:18 Dose: Not Given Documented by: Polyethylene Glycol (Polyethylene Glycol 3350 17 Gm Packet) 17 gm PO DAILY [facility] Prochlorperazine Edisylate (Prochlorperazine 10 Mg/2 Ml Vial) 10 mg IVP Q6HR PRN PRN Reason: Nausea / Vomiting Senna (Senna 8.6 Mg Tablet) 8.6 - 17.2 mg PO DAILY [facility] Sodium Chloride (Sodium Chloride Flush 0.9% 10 Ml Syringe) 10 ml IVP PRN PRN PRN Reason: NEEDED PER PROVIDER ORDERS Last Admin: 08/04/20 09:30 Dose: 10 ml Documented by: Sodium Chloride (Sodium Chloride Flush 0.9% 10 Ml Syringe) 10 ml IVP 0100,0900,1700 [facility] Last Admin: 08/04/20 17:00 Dose: 10 ml Documented by: Temazepam (Temazepam 15 Mg Capsule) 15 mg PO QPM [facility] Last Admin: 08/04/20 20:52 Dose: 15 mg Documented by: Gabapentin [Neurontin] 100 mg PO TID 07/28/20 Lorlatinib [Lorbrena] 50 mg PO DAILY 07/28/20 Objective - Vital Signs/Intake & Output Reviewed Vital Signs: Yes Vital Signs: Vital Signs x48h Temp Pulse Resp BP BP Pulse Ox 08/04/20 20:59 164/85 H 08/04/20 20:10 36.6 C 99 21 164/85 H 93 08/04/20 16:22 36.6 C 81 20 154/81 H 97 Intake & Output: Intake & Output 08/01/20 08/02/20 08/03/20 08/04/20 23:59 23:59 23:59 23:59 Intake Total 2758.75 990 1490 1630 Output Total 600 2575 Balance 2158.75 990 1490 -945 - Objective General Appearance: positive: No acute distress, Alert, Other (Unfortunately her affect does deteriorate with . In the morning she is much more alert, cooperative, and lucid. A lucid enough to say that she recognizes she is in the hospital and that she is confused. By evening, more confused.) Eyes Bilateral: positive: PERRL, EOMI ENT: positive: No signs of dehydration Neck: positive: No JVD. negative: Stiff neck Respiratory: positive: No respiratory distress. negative: Wheezes, Rales, Rhonchi Cardiovascular: positive: Regular rate & rhythm, Systolic murmur. negative: Gallop/S4, Friction rub Abdomen: positive: Non-tender, No organomegaly, Nml bowel sounds, No distention Skin: positive: Warm, Dry Extremities: positive: Full ROM, No pedal edema Neurologic/Psychiatric: positive: CN's nml (2-12), Motor nml, Disoriented to place, Disoriented to time - Lab Results Fish Bones: 08/04/20 08:05 08/04/20 08:05 Other Labs: Lab Results x24hrs 08/04/20 08/04/20 Range/Units 08:05 08:05 WBC 13.5 H (4.8-10.8) x10^3/uL RBC 3.75 L (4.20-5.40) 10^6/uL Hgb 9.7 L (12.0-16.0) g/dL Hct 30.4 L (37.0-47.0) % MCV 81.1 (81.0-99.0) fL MCH 25.9 L (27.0-31.0) pg MCHC 31.9 L (32.0-36.0) g/dL RDW 22.5 H (12.0-15.0) % Plt Count 306 (130-450) 10^3/uL MPV 9.8 (7.9-10.8) fL Neut # (Auto) Not Reportable Lymph # (Auto) Not Reportable Wirt # (Auto) Not Reportable Eos # (Auto) Not Reportable Baso # (Auto) Not Reportable Absolute Nucleated RBC Not Reportable Total Counted 100 Band Neuts % (Manual) 2 (0 - 10) % Reactive Lymphs % (Man) 2 % Abnorm Lymph % (Manual) 0 % Metamyelocytes % 2 H ( - 0) % Myelocytes % 1 H ( - 0) % Nucleated RBC % Not Reportable Neutrophils # (Manual) 8.6 H (1.5-6.6) 10^3/uL Lymphocytes # (Manual) 2.7 (1.5-3.5) 10^3/uL Monocytes # (Manual) 1.6 H (0.0-1.0) 10^3/uL Eosinophils # (Manual) 0.1 (0-0.7) 10^3/uL Basophils # (Manual) 0.0 (0-0.1) 10^3/uL Differential Comment MANUAL DIFFERENTIAL Manual Slide Review Indicated Sodium 142 (135-145) mmol/L Potassium 3.8 (3.5-5.0) mmol/L Chloride 103 (101-111) mmol/L Carbon Dioxide 27 (21-32) mmol/L Anion Gap 12.0 (6-13) BUN 15 (6-20) mg/dL Creatinine 0.4 (0.4-1.0) mg/dL Estimated GFR (MDRD) 155 (>89) Glucose 133 H (70-100) mg/dL Calcium 8.7 (8.5-10.3) mg/dL Total Bilirubin 1.0 (0.2-1.0) mg/dL AST 33 (10-42) IU/L ALT 19 (10-60) IU/L Alkaline Phosphatase 573 H (42-121) IU/L Total Protein 5.9 L (6.7-8.2) g/dL Albumin 2.9 L (3.2-5.5) g/dL Globulin 3.0 (2.1-4.2) g/dL Albumin/Globulin Ratio 1.0 (1.0-2.2) ABX Reporting Has patient been on IV antibiotics over the past 48 hours?: Yes Assessment/Plan - Problem List (1) Acute respiratory failure with hypoxia Impression: Secondary to COVID-19 and possibly a component of bacterial pneumonia. She feels stable. Continues to be anxious to go home. O2 requirement is consistently 2 L nasal cannula. She saturates anywhere from 93 to 97% on this.. We will continue supplemental oxygen for goal saturation greater than 92%. Hopefully she will need less and less oxygen so than she can get home. (2) Pneumonia due to COVID-19 virus Impression: There may be a component of bacterial pneumonia in addition to viral pneumonia. White cell count on admission was 9000. Steadily increased to 16.8 thousand on August 02. Today it is 13.5. She has completed 5 days of remdesivir. She will complete 10 days of Decadron. She was started on ceftriaxone on August 02. She is still on ceftriaxone. Increased from 1 g a day to 2 g a day on the . Azithromycin was started on August 02 as well and she completed that. we will continue Decadron 6 mg daily. We are waiting for her to not need oxygen for her to go home. (3) Anemia Impression: Her hemoglobin is slightly decreased again today but overall stable. 9.7. No evidence of bleeding. We will continue to monitor daily. She has already received 2 units of packed red blood cells during this hospitalization (4) Hypertension Impression: Her blood pressure has been elevated with systolic in the 140s to 150s. Started on August 03. Her systolic got as high as 173 that day. Today systolic is 154-164 No change for today. We will continue to monitor. It may take up to 2 weeks for Norvasc to have the effect we need. She is asymptomatic. (5) Lung cancer metastatic to bone Impression: We are continuing her immunotherapy during this hospitalization as recommended by her oncologist.
[2020-08-05] MEDS: SODIUM CHLORIDE FLUSH 0.9% 10 ML SYRINGE IVP SCH ×3 (01:43→16:17)
[2020-08-05] MEDS: GABAPENTIN 100 MG CAPSULE PO SCH ×3 (05:57→21:45)
[2020-08-05 06:06] LABS: BASOPHILS # (AUTO) 0.1 10^3/uL (0.0-0.1); BASOPHILS % (AUTO) 0.5 %; EOSINOPHILS # (AUTO) 0.2 10^3/uL (0.0-0.7); EOSINOPHILS % (AUTO) 2.2 %; HGB - HEMOGLOBIN 8.8 g/dL (12.0-16.0); LYMPHOCYTES # (AUTO) 2.6 10^3/uL (1.5-3.5); LYMPHOCYTES % (AUTO) 25.2 %; MEAN CORPUSCULAR HEMOGLOBIN 24.9 pg (27.0-31.0); MEAN CORPUSCULAR HGB CONC 31.8 g/dL (32.0-36.0); MEAN CORPUSCULAR VOLUME 78.5 fL (81.0-99.0); MEAN PLATELET VOLUME 9.6 fL (7.9-10.8); MONOCYTES # (AUTO) 1.1 10^3/uL (0.0-1.0); MONOCYTES % (AUTO) 10.5 %; NEUTROPHILS # (AUTO) 5.8 10^3/uL (1.5-6.6); NEUTROPHILS % (AUTO) 55.3 %; PLT - PLATELET COUNT 280 10^3/uL (130-450); RED BLOOD COUNT 3.53 10^6/uL (4.20-5.40); RED CELL DISTRIBUTION WIDTH 21.8 % (12.0-15.0); WHITE BLOOD COUNT 10.4 x10^3/uL (4.8-10.8)
[2020-08-05 06:21] LABS: CALCIUM 8.4 mg/dL (8.5-10.3); CREATININE 0.4 mg/dL (0.4-1.0)
[2020-08-05 06:26] LABS: PLATELET ESTIMATE, MANUAL NORMAL (130-450,000) (NORMAL); PLATELET MORPHOLOGY NORMAL APPEARANCE (NORMAL)
[2020-08-05] MEDS: IBUPROFEN 400 MG TABLET PO PRN (06:56)
[2020-08-05] MEDS ORDERED: POTASSIUM CHLORIDE 20 MEQ TABLET PO ONE (07:39)
[2020-08-05] MEDS ORDERED: DOCUSATE SODIUM 250 MG CAPSULE PO SCH (09:00)
[2020-08-05] MEDS ORDERED: polyethylene glycoL 3350 17 GM PACKET PO SCH (09:00)
[2020-08-05] MEDS: cefTRIAXone 2 GM in SODIUM CHLORIDE 0.9% MINIBAG 100 ML IV SCH (09:15)
[2020-08-05] MEDS: FAMOTIDINE 20 MG/2 ML VIAL IVP SCH ×2 (09:18→21:45)
[2020-08-05] MEDS: DEXAMETHASONE 4 MG/ML VIAL IVP SCH (09:19)
[2020-08-05] MEDS: DOCUSATE SODIUM 250 MG CAPSULE PO SCH ×2 (09:22→09:26)
[2020-08-05] MEDS: MULTIVITAMIN W/MINERALS TABLET PO SCH (09:22)
[2020-08-05] MEDS: polyethylene glycoL 3350 17 GM PACKET PO SCH (09:22)
[2020-08-05] MEDS: SACCHAROMYCES BOULARDII 250 MG CAPSULE PO SCH ×2 (09:22→16:17)
[2020-08-05] MEDS: SENNA 8.6 MG TABLET PO SCH (09:23)
[2020-08-05] MEDS: amLODIPine 5 MG TABLET PO SCH (09:23)
[2020-08-05] MEDS: METOPROLOL TARTRATE 25 MG TABLET PO SCH ×2 (09:25→21:45)
[2020-08-05] MEDS: LORLATINIB 25 MG PO SCH (09:25)
[2020-08-05] MEDS: ENOXAPARIN 40 MG/0.4 ML SYRINGE SUBQ SCH (09:26)
--- NOTE | 2020-08-05 11:42 | XRAY Report ---
PROCEDURE: Chest 1 View X-Ray INDICATIONS: SOB TECHNIQUE: One view of the chest was acquired. COMPARISON: 08/02/2020 FINDINGS: Surgical changes and devices: Status post left pneumonectomy.. Lungs and pleura: No pleural effusions or pneumothorax. Patchy opacities in the right lung have dimi nished without complete resolution. Mediastinum: Mediastinal contours appear normal. Heart size is normal. Bones and chest wall: No suspicious bony lesions. Overlying soft tissues appear unremarkable. IMPRESSION: Right lung multilobar pneumonia versus pulmonary edema diminished without complete resolution. Reviewed by: Naina Mccall MD, PhD on 08/05/2020 10:40 AM [facility] Approved by: Naina Mccall MD, PhD on 08/05/2020 10:40 AM [facility] Station ID: [id number]
[2020-08-05] MEDS: ACETAMINOPHEN 325 MG TABLET PO PRN ×2 (16:16→21:45)
--- NOTE | 2020-08-05 17:09 | PROVIDER PROGRESS NOTE ---
Assessment/Plan - Problem List (1) Acute respiratory failure with hypoxia Assessment/Plan: CXR reveal significant improved but no complete resolution yet. Unfortunate on room air pt's O2 sat is still drop to 81% per nurse report. Now pt is on 0.5 liter of O2 has 92% O2 sats. pt might be negative for covid 19 according to CXR, order Covid 19 test if it is negative, then pt might need home O2, (2) Pneumonia due to COVID-19 virus Impression: will continue Rocephin 2g daily and we will continue Decadron 6 mg daily. We are waiting for her to not need oxygen for her to go home. (3) Anemia Impression: Her hemoglobin is slightly decreased again today but overall stable. 9.7. No evidence of bleeding. Iron study did not show iron deficiency. Patient has a history of lung cancer metastasis in the bone which could affect patient anemia status. We will continue to monitor daily. 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 - Current Meds Current Meds: Current Medications Generic Name Dose Route Start Last Admin Trade Name Freq PRN Reason Stop Dose Admin Acetaminophen 650 mg 07/29/20 02:48 08/05/20 16:16 Acetaminophen 325 Mg Tablet PO 650 mg Q4HR PRN Administration Pain or Fever > 38C (100.4F) Amlodipine Besylate 5 mg 08/03/20 15:42 08/05/20 09:23 Amlodipine 5 Mg Tablet PO 5 mg DAILY [facility]ANCA Administration Dexamethasone 6 mg 08/03/20 16:00 08/05/20 09:19 Dexamethasone 4 Mg/Ml Vial IVP 08/07/20 09:01 6 mg DAILY BLANCA Administration Docusate Sodium 250 - 500 mg 07/30/20 11:00 08/05/20 09:22 Docusate Sodium 250 Mg Capsule PO 250 mg DAILY [facility]CA Administration Enoxaparin Sodium 40 mg 07/29/20 09:00 08/05/20 09:26 Enoxaparin 40 Mg/0.4 Ml Syringe SUBQ 40 mg DAILY BLANCA Administration Famotidine 20 mg 07/29/20 09:00 08/05/20 09:18 Famotidine 20 Mg/2 Ml Vial IVP 20 mg BID BLANCA Administration Gabapentin 100 mg 07/29/20 18:00 08/05/20 14:44 Gabapentin 100 Mg Capsule PO 100 mg TID BLANCA Administration Ceftriaxone Sodium 2 gm/ 100 mls @ 200 mls/hr 08/05/20 09:00 08/05/20 10:45 Sodium Chloride IV 08/07/20 08:59 Infused DAILY [facility]ANCA Infusion Ibuprofen 400 mg 07/30/20 10:52 08/05/20 06:56 Ibuprofen 400 Mg Tablet PO 400 mg Q6HR PRN Administration PAIN Lorazepam 0.25 mg 07/30/20 12:35 08/03/20 16:32 Lorazepam 0.5 Mg Tablet PO 0.25 mg Q8H PRN Administration Anxiety Metoprolol Tartrate 25 mg 07/31/20 21:00 08/05/20 09:25 Metoprolol Tartrate 25 Mg Tablet PO 25 mg BID BLANCA Administration Multivitamins/Minerals 1 tab 07/29/20 12:00 08/05/20 09:22 Multivitamin W/Minerals Tablet PO 1 tab DAILYWM [facility]ANCA Administration Non-Formulary Medication 50 mg 07/30/20 13:00 08/05/20 09:25 Lorlatinib [Lorbrena] PO 50 mg DAILY [facility] Administration Ondansetron HCl 4 mg 07/29/20 02:48 08/02/20 11:35 Ondansetron 4 Mg/2 Ml Vial IVP 4 mg Q6HR PRN Administration Nausea / Vomiting Oxycodone HCl 2.5 mg 07/29/20 17:04 08/01/20 04:55 Oxycodone 5 Mg Tablet PO 2.5 mg Q6HR PRN Administration PAIN Polyethylene Glycol 17 gm 07/30/20 11:00 08/05/20 09:22 Polyethylene Glycol 3350 17 Gm Packet PO 17 gm DAILY [facility]AN[facility] Administration Saccharomyces Boulardii 250 mg 08/05/20 08:00 08/05/20 16:17 Saccharomyces Boulardii 250 Mg Capsule PO 250 mg BIDWM [facility]AN[facility] Administration Senna 8.6 - 17.2 mg 08/05/20 09:00 08/05/20 09:23 Senna 8.6 Mg Tablet PO 8.6 mg DAILY [facility] Administration Sodium Chloride 10 ml 07/29/20 02:48 08/04/20 09:30 Sodium Chloride Flush 0.9% 10 Ml Syringe IVP 10 ml PRN PRN Administration NEEDED PER PROVIDER ORDERS Sodium Chloride 10 ml 07/29/20 09:00 08/05/20 16:17 Sodium Chloride Flush 0.9% 10 Ml Syringe IVP 10 ml 0100,0900,1700 [facility] Administration Temazepam 15 mg 07/31/20 21:00 08/04/20 20:52 Temazepam 15 Mg Capsule PO 15 mg QPM BLANCA Administration - Lab Result Fish Bone Diagrams: 08/05/20 05:53 08/05/20 05:53 - Additional Planning My Orders: My Active Orders 08/05/20 08:00 Saccharomyces Boulardii [Florastor] 250 mg PO BIDWM 08/05/20 14:46 COVID-19 REFERENCE TEST Routine 08/06/20 05:00 BMP - BASIC METABOLIC PANEL [CHEM] DAILYLAB CBC - COMP BLD CT W/AUTO DIFF [HEME] DAILYLAB 08/07/20 05:00 BMP - BASIC METABOLIC PANEL [CHEM] DAILYLAB CBC - COMP BLD CT W/AUTO DIFF [HEME] DAILYLAB 08/08/20 05:00 BMP - BASIC METABOLIC PANEL [CHEM] DAILYLAB CBC - COMP BLD CT W/AUTO DIFF [HEME] DAILYLAB 08/09/20 05:00 BMP - BASIC METABOLIC PANEL [CHEM] DAILYLAB CBC - COMP BLD CT W/AUTO DIFF [HEME] DAILYLAB 08/10/20 05:00 BMP - BASIC METABOLIC PANEL [CHEM] DAILYLAB CBC - COMP BLD CT W/AUTO DIFF [HEME] DAILYLAB 08/11/20 05:00 BMP - BASIC METABOLIC PANEL [CHEM] DAILYLAB CBC - COMP BLD CT W/AUTO DIFF [HEME] DAILYLAB Subjective - Subjective Patient Reports: Feeling Better Objective Vital Signs: Vital Signs - 24 hr 08/04/20 08/04/20 08/05/20 20:10 20:59 01:00 Temperature 36.6 C 36.7 C Heart Rate [ 99 89 Monitoring electrodes] Respiratory 21 19 Rate Blood Pressure 164/85 H Blood Pressure [Left Brachial artery] Blood Pressure 164/85 H 153/84 H [Right Brachial artery] O2 Saturation 93 98 08/05/20 08/05/20 08/05/20 05:00 09:00 09:25 Temperature 37.0 C 37.1 C Heart Rate [ 77 89 Monitoring electrodes] Respiratory 20 26 H Rate Blood Pressure 150/73 H Blood Pressure 155/87 H [Left Brachial artery] Blood Pressure 137/78 H [Right Brachial artery] O2 Saturation 96 97 08/05/20 08/05/20 08/05/20 09:46 10:24 13:00 Temperature 37.1 C Heart Rate [ 87 75 Monitoring electrodes] Respiratory 25 H 16 20 Rate Blood Pressure Blood Pressure [Left Brachial artery] Blood Pressure 149/79 H [Right Brachial artery] O2 Saturation 97 90 L 95 08/05/20 08/05/20 16:17 16:18 Temperature Heart Rate [ 83 Monitoring electrodes] Respiratory 16 Rate Blood Pressure Blood Pressure 143/83 H [Left Brachial artery] Blood Pressure [Right Brachial artery] O2 Saturation 81 L 92 Oxygen O2 Source Nasal cannula I&O (Last 24 Hrs): Intake and Output Totals x24h 08/03/20 08/04/20 08/05/20 23:59 23:59 23:59 Intake Total 1490 1630 740 Output Total 2575 1125 Balance 1490 -945 -385 General: Alert, Oriented x3, Cooperative, No acute distress HEENT: Atraumatic Neck: Supple Lymphatic: no adenopathy Neuro: Alert, Non Focal, Oriented Times 3 Cardiovascular: Regular rate, Normal S1, Normal S2 Respiratory: Chest non-tender, No respiratory distress Abdomen: Normal bowel sounds, Soft, No tenderness Extremities: Normal pulses - Results Results: Laboratory Results WBC 10.4 x10^3/uL (4.8-10.8) 08/05/20 05:53 RBC 3.53 10^6/uL (4.20-5.40) L 08/05/20 05:53 Hgb 8.8 g/dL (12.0-16.0) L 08/05/20 05:53 Hct 27.7 % (37.0-47.0) L 08/05/20 05:53 MCV 78.5 fL (81.0-99.0) L 08/05/20 05:53 MCH 24.9 pg (27.0-31.0) L 08/05/20 05:53 MCHC 31.8 g/dL (32.0-36.0) L 08/05/20 05:53 RDW 21.8 % (12.0-15.0) H 08/05/20 05:53 Plt Count 280 10^3/uL (130-450) 08/05/20 05:53 MPV 9.6 fL (7.9-10.8) 08/05/20 05:53 Neut # (Auto) 5.8 10^3/uL (1.5-6.6) 08/05/20 05:53 Lymph # (Auto) 2.6 10^3/uL (1.5-3.5) 08/05/20 05:53 [place] # (Auto) 1.1 10^3/uL (0.0-1.0) H 08/05/20 05:53 Eos # (Auto) 0.2 10^3/uL (0.0-0.7) 08/05/20 05:53 Baso # (Auto) 0.1 10^3/uL (0.0-0.1) 08/05/20 05:53 Absolute Nucleated RBC 0.12 x10^3/uL 08/05/20 05:53 Total Counted 100 08/04/20 08:05 Band Neuts % (Manual) 2 % (0-10) 08/04/20 08:05 Reactive Lymphs % (Man) 2 % 08/04/20 08:05 Abnorm Lymph % (Manual) 0 % 08/04/20 08:05 Metamyelocytes % 2 % (-0) H 08/04/20 08:05 Myelocytes % 1 % (-0) H 08/04/20 08:05 Nucleated RBC % 1.2 /100WBC 08/05/20 05:53 Neutrophils # (Manual) 8.6 10^3/uL (1.5-6.6) H 08/04/20 08:05 Lymphocytes # (Manual) 2.7 10^3/uL (1.5-3.5) 08/04/20 08:05 Monocytes # (Manual) 1.6 10^3/uL (0.0-1.0) H 08/04/20 08:05 Eosinophils # (Manual) 0.1 10^3/uL (0-0.7) 08/04/20 08:05 Basophils # (Manual) 0.0 10^3/uL (0-0.1) 08/04/20 08:05 Differential Comment MANUAL DIFFERENTIAL 08/04/20 08:05 Manual Slide Review Indicated 08/05/20 05:53 WBC Morphology NORMAL APPEARANCE (NORMAL) 08/05/20 05:53 Platelet Estimate NORMAL (130-450,000) (NORMAL) 08/05/20 05:53 Platelet Morphology NORMAL APPEARANCE (NORMAL) 08/05/20 05:53 RBC Morph Micro Appear 2+ MACROCYTOSIS (NORMAL) 1+ MICROCYTOSIS (NORMAL) 1+ POIKILOCYTOSIS (NORMAL) 2+ ANISOCYTOSIS (NORMAL) 08/05/20 05:53 RBC Morph Micro Appear 2+ MACROCYTOSIS (NORMAL) 1+ MICROCYTOSIS (NORMAL) 1+ POIKILOCYTOSIS (NORMAL) 2+ ANISOCYTOSIS (NORMAL) 08/05/20 05:53 RBC Morph Micro Appear 2+ MACROCYTOSIS (NORMAL) 1+ MICROCYTOSIS (NORMAL) 1+ POIKILOCYTOSIS (NORMAL) 2+ ANISOCYTOSIS (NORMAL) 08/05/20 05:53 RBC Morph Micro Appear 2+ MACROCYTOSIS (NORMAL) 1+ MICROCYTOSIS (NORMAL) 1+ POIKILOCYTOSIS (NORMAL) 2+ ANISOCYTOSIS (NORMAL) 08/05/20 05:53 Sodium 139 mmol/L (135-145) 08/05/20 05:53 Potassium 3.1 mmol/L (3.5-5.0) L 08/05/20 05:53 Chloride 103 mmol/L (101-111) 08/05/20 05:53 Carbon Dioxide 27 mmol/L (21-32) 08/05/20 05:53 Anion Gap 9.0 (6-13) 08/05/20 05:53 BUN 20 mg/dL (6-20) 08/05/20 05:53 Creatinine 0.4 mg/dL (0.4-1.0) 08/05/20 05:53 Estimated GFR (MDRD) 155 (>89) 08/05/20 05:53 Glucose 100 mg/dL (70-100) 08/05/20 05:53 Calcium 8.4 mg/dL (8.5-10.3) L 08/05/20 05:53 Magnesium 1.9 mg/dL (1.7-2.8) 07/29/20 05:14 Iron 41 ug/dL (28-170) 07/29/20 05:14 TIBC 259 ug/dL (250-450) 07/29/20 05:14 % Saturation 16 % (20-50) L 07/29/20 05:14 Transferrin 185 mg/dL (192-382) L 07/29/20 05:14 Total Bilirubin 1.0 mg/dL (0.2-1.0) 08/04/20 08:05 AST 33 IU/L (10-42) 08/04/20 08:05 ALT 19 IU/L (10-60) 08/04/20 08:05 Alkaline Phosphatase 573 IU/L (42-121) H 08/04/20 08:05 Total Protein 5.9 g/dL (6.7-8.2) L 08/04/20 08:05 Albumin 2.9 g/dL (3.2-5.5) L 08/04/20 08:05 Globulin 3.0 g/dL (2.1-4.2) 08/04/20 08:05 Albumin/Globulin Ratio 1.0 (1.0-2.2) 08/04/20 08:05 Lipase 35 U/L (22-51) 07/29/20 05:14 Vitamin B12 2850 pg/mL (180-914) H 07/29/20 05:14 Folate 44.00 ng/mL (5.90 - >24.8) 07/30/20 04:26 Stl C. diff Tox B Gene NEGATIVE (NEGATIVE) 07/30/20 14:10 Ref Lab Test Result REPORT 07/30/20 14:10 Blood Type B POSITIVE 07/29/20 08:55 Antibody Screen NEGATIVE 07/29/20 08:55 Crossmatch IS Only See Detail 07/29/20 08:55 - Procedures Procedures: Procedures COLONOSCOPY (06/29/13) ABX Reporting Has patient been on IV antibiotics over the past 48 hours?: Yes Current Medications - Current Medications Current Medications: Active Medications Acetaminophen (Acetaminophen 325 Mg Tablet) 650 mg PO Q4HR PRN PRN Reason: Pain or Fever > 38C (100.4F) Last Admin: 08/05/20 16:16 Dose: 650 mg Documented by: Albuterol (Albuterol 1 Puff) 2 puffs INH RTQ4H PRN PRN Reason: Wheezing Stop: 08/06/20 07:10 Amlodipine Besylate (Amlodipine 5 Mg Tablet) 5 mg PO DAILY [facility]ANCA Last Admin: 08/05/20 09:23 Dose: 5 mg Documented by: Dexamethasone (Dexamethasone 4 Mg/Ml Vial) 6 mg IVP DAILY [facility] Stop: 08/07/20 09:01 Last Admin: 08/05/20 09:19 Dose: 6 mg Documented by: Docusate Sodium (Docusate Sodium 250 Mg Capsule) 250 - 500 mg PO DAILY [facility] Last Admin: 08/05/20 09:22 Dose: 250 mg Documented by: Enoxaparin Sodium (Enoxaparin 40 Mg/0.4 Ml Syringe) 40 mg SUBQ DAILY [facility] Last Admin: 08/05/20 09:26 Dose: 40 mg Documented by: Famotidine (Famotidine 20 Mg/2 Ml Vial) 20 mg IVP BID [facility] Last Admin: 08/05/20 09:18 Dose: 20 mg Documented by: Gabapentin (Gabapentin 100 Mg Capsule) 100 mg PO TID [facility] Last Admin: 08/05/20 14:44 Dose: 100 mg Documented by: Hydralazine HCl (Hydralazine Inj 20 Mg/Ml Vial) 10 mg IVP QID PRN PRN Reason: Hypertensive Emergency Ceftriaxone Sodium 2 gm/ (Sodium Chloride) 100 mls @ 200 mls/hr IV DAILY [facility] Stop: 08/07/20 08:59 Last Infusion: 08/05/20 10:45 Dose: Infused Documented by: Ibuprofen (Ibuprofen 400 Mg Tablet) 400 mg PO Q6HR PRN PRN Reason: PAIN Last Admin: 08/05/20 06:56 Dose: 400 mg Documented by: Lorazepam (Lorazepam 0.5 Mg Tablet) 0.25 mg PO Q8H PRN PRN Reason: Anxiety Last Admin: 08/03/20 16:32 Dose: 0.25 mg Documented by: Metoprolol Tartrate (Metoprolol Tartrate 25 Mg Tablet) 25 mg PO BID [facility] Last Admin: 08/05/20 09:25 Dose: 25 mg Documented by: Multivitamins/Minerals (Multivitamin W/Minerals Tablet) 1 tab PO DAILYWM [facility] Last Admin: 08/05/20 09:22 Dose: 1 tab Documented by: Non-Formulary Medication (Lorlatinib [Lorbrena]) 50 mg PO DAILY [facility] Last Admin: 08/05/20 09:25 Dose: 50 mg Documented by: Ondansetron HCl (Ondansetron 4 Mg/2 Ml Vial) 4 mg IVP Q6HR PRN PRN Reason: Nausea / Vomiting Last Admin: 08/02/20 11:35 Dose: 4 mg Documented by: Oxycodone HCl (Oxycodone 5 Mg Tablet) 2.5 mg PO Q6HR PRN PRN Reason: PAIN Last Admin: 08/01/20 04:55 Dose: 2.5 mg Documented by: Polyethylene Glycol (Polyethylene Glycol 3350 17 Gm Packet) 17 gm PO DAILY [facility] Last Admin: 08/05/20 09:22 Dose: 17 gm Documented by: Prochlorperazine Edisylate (Prochlorperazine 10 Mg/2 Ml Vial) 10 mg IVP Q6HR PRN PRN Reason: Nausea / Vomiting Saccharomyces Boulardii (Saccharomyces Boulardii 250 Mg Capsule) 250 mg PO BIDWM [facility] Last Admin: 08/05/20 16:17 Dose: 250 mg Documented by: Senna (Senna 8.6 Mg Tablet) 8.6 - 17.2 mg PO DAILY [facility] Last Admin: 08/05/20 09:23 Dose: 8.6 mg Documented by: Sodium Chloride (Sodium Chloride Flush 0.9% 10 Ml Syringe) 10 ml IVP PRN PRN PRN Reason: NEEDED PER PROVIDER ORDERS Last Admin: 08/04/20 09:30 Dose: 10 ml Documented by: Sodium Chloride (Sodium Chloride Flush 0.9% 10 Ml Syringe) 10 ml IVP 0100,0900,1700 [facility] Last Admin: 08/05/20 16:17 Dose: 10 ml Documented by: Temazepam (Temazepam 15 Mg Capsule) 15 mg PO QPM [facility] Last Admin: 08/04/20 20:52 Dose: 15 mg Documented by: Gabapentin [Neurontin] 100 mg PO TID 07/28/20 Lorlatinib [Lorbrena] 50 mg PO DAILY 07/28/20
[2020-08-05] MEDS: TEMAZEPAM 15 MG CAPSULE PO SCH (21:45)
[2020-08-06] MEDS: SODIUM CHLORIDE FLUSH 0.9% 10 ML SYRINGE IVP SCH ×3 (02:09→17:22)
[2020-08-06 05:43] LABS: BASOPHILS % (AUTO) 0.5 %; EOSINOPHILS % (AUTO) 1.8 %; HGB - HEMOGLOBIN 9.8 g/dL (12.0-16.0); LYMPHOCYTES % (AUTO) 24.2 %; MEAN CORPUSCULAR HEMOGLOBIN 25.4 pg (27.0-31.0); MEAN CORPUSCULAR HGB CONC 30.8 g/dL (32.0-36.0); MEAN CORPUSCULAR VOLUME 82.4 fL (81.0-99.0); MEAN PLATELET VOLUME 10.5 fL (7.9-10.8); MONOCYTES % (AUTO) 11.7 %; NEUTROPHILS % (AUTO) 55.8 %; PLT - PLATELET COUNT 331 10^3/uL (130-450); RED BLOOD COUNT 3.86 10^6/uL (4.20-5.40); RED CELL DISTRIBUTION WIDTH 23.4 % (12.0-15.0); WHITE BLOOD COUNT 14.2 x10^3/uL (4.8-10.8)
[2020-08-06 05:51] LABS: CALCIUM 9.1 mg/dL (8.5-10.3); CREATININE 0.4 mg/dL (0.4-1.0)
[2020-08-06 06:12] LABS: ABNORMAL LYMPHS % (MANUAL) 0 %
[2020-08-06] MEDS: IBUPROFEN 400 MG TABLET PO PRN (06:29)
[2020-08-06] MEDS: GABAPENTIN 100 MG CAPSULE PO SCH ×2 (06:29→13:39)
[2020-08-06 06:38] LABS: BAND NEUTROPHILS % (MANUAL) 1 %; EOSINOPHILS # (MANUAL) 0.4 10^3/uL (0-0.7); LYMPHOCYTES # (MANUAL) 2.7 10^3/uL (1.5-3.5); LYMPHOCYTES % (MANUAL) 19 %; METAMYELOCYTES % (MANUAL) 3 %; MONOCYTES # (MANUAL) 1.6 10^3/uL (0.0-1.0); MYELOCYTES % (MANUAL) 3 %
[2020-08-06 06:39] LABS: DIFFERENTIAL COMMENT MANUAL DIFFERENTIAL; PLATELET ESTIMATE, MANUAL NORMAL (130-450,000) (NORMAL)
[2020-08-06] MEDS: MULTIVITAMIN W/MINERALS TABLET PO SCH (09:30)
[2020-08-06] MEDS: cefTRIAXone 2 GM in SODIUM CHLORIDE 0.9% MINIBAG 100 ML IV SCH (09:31)
[2020-08-06] MEDS: SACCHAROMYCES BOULARDII 250 MG CAPSULE PO SCH ×2 (09:31→17:22)
[2020-08-06] MEDS ORDERED: DEXAMETHASONE 4 MG/ML VIAL IVP SCH (09:31)
[2020-08-06] MEDS: amLODIPine 5 MG TABLET PO SCH (09:31)
[2020-08-06] MEDS: METOPROLOL TARTRATE 25 MG TABLET PO SCH (09:32)
[2020-08-06] MEDS: DOCUSATE SODIUM 250 MG CAPSULE PO SCH (09:34)
[2020-08-06] MEDS: SENNA 8.6 MG TABLET PO SCH (09:34)
[2020-08-06] MEDS: ENOXAPARIN 40 MG/0.4 ML SYRINGE SUBQ SCH (09:35)
[2020-08-06] MEDS: FAMOTIDINE 20 MG/2 ML VIAL IVP SCH (09:36)
[2020-08-06] MEDS: polyethylene glycoL 3350 17 GM PACKET PO SCH (09:44)
[2020-08-06] MEDS: LORLATINIB 25 MG PO SCH (09:45)
--- NOTE | 2020-08-06 13:14 | Discharge Plan ---
Discharge Plan Problem Reviewed?: Yes Disposition: Home Health Service Condition: Stable Prescriptions: oxyCODONE [Roxicodone] 5 mg PO Q6HR PRN #30 tablet PRN Reason: Pain cefUROXime axetiL [Ceftin] 500 mg PO Q12H #20 tablet predniSONE [Deltasone] 10 mg PO [id number] #16 tab Saccharomyces Boulardii [Florastor] 250 mg PO BIDWM #10 capsule Metoprolol Tartrate [Lopressor] 25 mg PO BID #30 tablet amLODIPine [Norvasc] 5 mg PO DAILY #30 tablet Diet: Regular Activity Restrictions: Activity as Tolerated Shower Restrictions: No (fall precaution, caregiver closely monitor) Assistance Devices: Walker Instruction Topics: COVID-19 [facility], COVID-19 [facility] Statement, Pneumonia, Cancer Lung Living, Cefuroxime tablets, Prednisone tablets, Oxycodone tablets or capsules, Metoprolol tablets, Amlodipine, Oxygen Home Use, Oxygen Home [facility] Concerns: covid 19 pneumonia, lung cancer, HTN Plan of Treatment: your Covid 19 pneumonia PCR test is negative now, and home oxygen is prescribed for you, please followup with RT instruction to safely use oxygen at home, you are prescribed antibiotics for you to finish the bacterial pneumonia treatment course as well. you may continue followup with your oncologist as your schedule. you have elevated blood pressure in hospital, blood pressure medications are prescribed for you, you may followup with your PCP continue management of your blood pressure. Home health PT/OT is arranged for your strength training. Care Goals: stabilization and improvement of your medical conditions Assessment: discussed with you, your , your daughter the care plan, answered the questions, you understood. Additional Instructions or Follow Up instructions: You may followup with your PCP in 1-2 weeks, followup with your oncologist as your schedule. Should your symptoms return or worsen, you may present ER or call 911 for help. Follow-Up Care: Home Health - PT, Home Health - OT No Smoking: If you smoke, Please STOP! Call for help. Follow-up with: Melony Post MD [Primary Care Provider] -
--- NOTE | 2020-08-06 14:00 | DISCHARGE SUMMARY ---
Discharge Summary Admit Date: 07/28/20 Discharge Date: 08/06/20 Discharging Provider: Mikal Martines Primary Care Provider: Melony Gimenez Condition at Discharge: Stable Discharge Disposition: Home Health Service Discharge Facility Name: home - DIAGNOSES Discharge Diagnoses with Status of Each Condition: (1) Acute respiratory failure with hypoxia stable/resolved. Patient has no acute respiratory distress. CXR reveals pt has s ignificant improved, Covid 19 test became negative now. (2) Pneumonia due to COVID-19 virus improved/resolved. CXR reveals pt has significant improved, Covid 19 test became negative now. Discussed with patient and her daughter for COVID-19 precaution, According to [facility] guideline. Patient was given Decadron in the hospital to treat Covid 19, then patient is prescript prednisone for 5 days to wane off. pt is prescribed antibiotics to finish bacterial pneumonia treatment course. pt developed bacterial pneumonia infection in the hospital course. (3) Anemia Stable as patient's baseline, hemoglobin 9.8 (4) Hypertension stable, pt is prescribed Amlodipine, metoprolol for her BP control (5) Lung cancer metastatic to bone pt continued her immunotherapy during this hospitalization as recommended by her oncologist. Pt may followup with her oncologist as out-pt Patient was hypoxia with ambulation, room air with oxygen saturation of 88% With exertion on 2 LPM. Sats was 94 to 97% at 10 feet walk I am ordering home oxygen at 2 LPM by nasal cannula with exertion. (6)nausea, vomiting, and diarrhea resolved. - HPI History of Present Illness: This is a 75 years old female with a past medical history significant of lung cancer in immunotherapy and left pneumonectomy, Who present to ER complain increased nausea and vomiting. In the ER patient's oxygen saturation in room air from 91% sats down to 88%. Patient was found COVID-19 positive before because she has no acute respiratory complaints at the time she was sent to the home. Chest x-ray show patient has bilaterally groundglass appearance. Patient is admitted for worsening COVID-19 pneumonia as well as nausea, vomiting and diarrhea dehydration and weakness - HOSPITAL COURSE Hospital Course: Patient was admitted for Nausea, vomiting, diarrhea, COVID-19 positive and worsening respiratory distress. Patient's C. difficile test is negative. patient was treated with remdsivir, Decadron, Lovenox according to CDC guidelines to treat for Covid 19, Patient was given intravenous IV fluids for hydration, Patient also likely develop Bacterial pneumonia, then patient was treated antibiotics as well. after treatment, Patient's nausea, vomiting, diarrhea was resolved. Patient has no more acute respiratory distress. CXR reveals pt has significant improved, Covid 19 test became negative. Patient is prescribed home oxygen for her ambulation. - ALLERGIES Allergies/Adverse Reactions: Allergies Allergy/AdvReac Type Severity Reaction Status Date / Time influenza virus vaccine, Allergy Unknown Verified 07/28/20 01:38 specific [influenza virus vacc,specific] - MEDICATIONS Home Medications: Ambulatory Orders Medication Instructions Recorded Confirmed Gabapentin [Neurontin] 100 mg PO TID 07/28/20 07/30/20 Lorlatinib [Lorbrena] 50 mg PO DAILY 07/28/20 07/30/20 Metoprolol Tartrate [Lopressor] 25 mg PO BID #30 tablet 08/06/20 Saccharomyces Boulardii [Florastor] 250 mg PO BIDWM #10 capsule 08/06/20 amLODIPine [Norvasc] 5 mg PO DAILY #30 tablet 08/06/20 cefUROXime axetiL [Ceftin] 500 mg PO Q12H #20 tablet 08/06/20 oxyCODONE [Roxicodone] 5 mg PO Q6HR PRN #30 tablet 08/06/20 predniSONE [Deltasone] 10 mg PO [id number] #16 tab 08/06/20 - PHYSICAL EXAM AT DISCHARGE General Appearance: positive: No acute distress, Alert. negative: Lethargic Eyes Bilateral: positive: Normal inspection, PERRL, No lid inflammation ENT: positive: ENT inspection nml, No signs of dehydration. negative: Purulent nasal drainage Neck: positive: Nml inspection, Trachea midline. negative: Thyromegaly, Tracheal deviation Respiratory: positive: Chest non-tender, No respiratory distress. negative: Wheezes Cardiovascular: positive: Regular rate & rhythm, No murmur. negative: Tachycardia, Bradycardia, Systolic murmur, Diastolic murmur Peripheral Pulses: positive: 2+ Abdomen: positive: Non-tender, Nml bowel sounds, No distention. negative: Tenderness, Guarding, Rebound Back: positive: Nml inspection Skin: positive: Color nml, Warm, Dry. negative: Cyanosis, Diaphoresis, Pallor Extremities: positive: Non-tender, Nml appearance. negative: Calf tenderness Neurologic/Psychiatric: positive: Oriented x3, Sensation nml, Mood/affect nml. negative: Weakness, Sensory loss, Facial droop, Slurred/abnml speech, Depressed mood/affect - LABS Result Diagrams: 08/06/20 04:36 08/06/20 04:36 - FOLLOW UP Follow Up: your Covid 19 pneumonia PCR test is negative now, and home oxygen is prescribed for you, please followup with RT instruction to safely use oxygen at home, you are prescribed antibiotics for you to finish the bacterial pneumonia treatment course as well. you may continue followup with your oncologist as your schedule. you have elevated blood pressure in hospital, blood pressure medications are prescribed for you, you may followup with your PCP continue management of your blood pressure. Home health PT/OT is arranged for your strength training. You may followup with your PCP in 1-2 weeks, followup with your oncologist as your schedule. Should your symptoms return or worsen, you may present ER or call 911 for help. - TIME SPENT Time Spent in Discharge (Minutes): 30
[2020-08-06] MEDS: ACETAMINOPHEN 325 MG TABLET PO PRN (17:22)
[2020-08-06 18:28] VITALS: BP 127/75
[2020-08-07] MEDS ORDERED: DEXAMETHASONE 4 MG/ML VIAL IVP SCH (09:00)
== END 2020-08-06 19:00 | disposition home health service (06) | DRG 177 ==
LOC: ED 19:45 → EEVIPCON 07-29 01:27 → ICU 07-29 01:27
PROVIDERS: ADMIT Internal Medicine; ATTEND Nurse Practitioner Gerontology
PROC: XW033E5 Introduction of Remdesivir Anti-infective into Peripheral Vein, Percutaneous Approach, New Technology Group 5 (ICD-10-PCS; principal; 2020-07-29)
DX: U07.1 COVID-19 (principal); J12.82 Pneumonia due to coronavirus disease 2019; J96.01 Acute respiratory failure with hypoxia; K52.9 Noninfective gastroenteritis and colitis, unspecified; R09.02 Hypoxemia; J15.9 Unspecified bacterial pneumonia; C34.90 Malignant neoplasm of unspecified part of unspecified bronchus or lung; D64.9 Anemia, unspecified; G89.3 Neoplasm related pain (acute) (chronic); C79.51 Secondary malignant neoplasm of bone; Z85.118 Personal history of other malignant neoplasm of bronchus and lung; Z66 Do not resuscitate; F41.9 Anxiety disorder, unspecified; D63.0 Anemia in neoplastic disease; I10 Essential (primary) hypertension; E86.0 Dehydration; R11.2 Nausea with vomiting, unspecified; R19.7 Diarrhea, unspecified; R74.8 Abnormal levels of other serum enzymes; Z79.899 Other long term (current) drug therapy; Z90.2 Acquired absence of lung [part of]; Z99.81 Dependence on supplemental oxygen
CPT/HCPCS: 36415; 71045; 80048; 80053; 81599; 82272; 82607; 82746; 83540; 83690; 83735; 84466; 85014; 85018; 85025; 85610; 85730; 86850; 86900; 86901; 86920; 87493; 87631; 94640; 94761; 96374; 96375; 97161; 97166; 97530; 99284; 99285; A9270; J0131; J1650; J2060; J7120; P9016; U0004; 0202U; 82728; 83615; 85045; 87045; 87046

== ENCOUNTER 2020-09-16 09:29 | Outpatient (CLI) | payer MEDICARE, OTHER, MEDICAID | END 2020-09-16 09:30 | disposition short-term general hospital (02) | LOC: EMS 09:29 | DX: R53.1 Weakness (principal); R06.00 Dyspnea, unspecified | CPT/HCPCS: A0425; A0429; A0888 ==

== ENCOUNTER 2020-10-03 12:52 | Outpatient (CLI) | payer MEDICARE, OTHER, MEDICAID | END 2020-10-03 12:53 | disposition short-term general hospital (02) | LOC: EMS 12:52 | DX: R55 Syncope and collapse (principal); R11.2 Nausea with vomiting, unspecified | CPT/HCPCS: A0425; A0429; A0888 ==

== ENCOUNTER 2020-10-14 20:29 | Outpatient (CLI) | payer MEDICARE, OTHER, MEDICAID | END 2020-10-14 20:30 | disposition short-term general hospital (02) | LOC: EMS 20:29 | DX: R06.82 Tachypnea, not elsewhere classified (principal) | CPT/HCPCS: A0425; A0429 ==

== ENCOUNTER 2020-10-15 20:47 | Outpatient (CLI) | payer MEDICARE, OTHER, MEDICAID | END 2020-10-15 23:59 | disposition critical access hospital (66) | LOC: EMS 20:47 | PROVIDERS: ATTEND Emergency Medicine | DX: R06.00 Dyspnea, unspecified (principal) | CPT/HCPCS: A0425; A0427 ==

== ENCOUNTER 2020-10-15 21:04 | Emergency (ER) | payer MEDICARE, OTHER, MEDICAID ==
--- OUTSIDE RECORDS SUMMARY | 2020-10-15 21:12 | EXTERNAL MEDICAL SUMMARY RPT | Continuity of Care Document ---
:1945 Demographics Phone Unavailable Preferred Language Jordanian Marital Status Unknown Samaritan Affiliation Unknown Race Unknown Ethnic Group Unknown Author Organization [facility] Address [address] [id number] Phone Care Team Providers Name Role Phone Melony Menjivar Unavailable Unavailable Melony Menjivar Unavailable Unavailable Problems date description facility [id number] Acute posthemorrhagic anemia [facility] [id number] Pneumonia, unspecified organism [facility] 20201003 Pneumonia, unspecified organism [facility] Medications date description facility [id number] Amlodipine 5 MG Oral Tablet [facility] 20200906 Ibuprofen 600 MG Oral Tablet [facility] 20200906 gabapentin 100 MG Oral Capsule [facility] 20200906 Metoprolol Tartrate 25 MG Oral Tablet [facility] 20200908 Omeprazole 40 MG Enteric Coated Capsule [facility] 20200908 72 HR Fentanyl 0.025 MG/HR Transdermal Patch [facility] 20200917 Levofloxacin 750 MG Oral Tablet [facility] 20201006 Amoxicillin 875 MG / Clavulanate 125 MG Oral Tablet [facility] Procedures date description facility [id number] Diagnosis [facility] date description facility [id number] Finding [facility] date description facility [id number] [facility] date description facility [id number] [facility] date description facility 20201003 [facility] date description facility 20201014 [facility] Vital Signs date measurement value source 20200906 BP_diastolic 74 mm[Hg] 20200906 BP_systolic 158 mm[Hg] 20200906 heart_rate 87 /min 20200906 height_metric 152.4 cm 20200906 height_standard 60 in 20200906 respiration_rate 25 /min 20200906 temperature_metric 36.83 C 20200906 temperature_standard 98.3 F 20200906 weight_metric 50.8 kg 20200906 weight_standard 111.99 lb date measurement value source 20200908 BP_diastolic 75 mm[Hg] 20200908 BP_systolic 144 mm[Hg] 20200908 heart_rate 83 /min 20200908 respiration_rate 16 /min 20200908 temperature_metric 36.72 C 20200908 temperature_standard 98.1 F 20200908 weight_metric 51.3 kg 20200908 weight_standard 113.1 lb date measurement value source 20200916 BMI 21.1 kg/m2 20200916 BP_diastolic 69 mm[Hg] 20200916 BP_systolic 134 mm[Hg] 20200916 heart_rate 111 /min 20200916 height_metric 152.4 cm 20200916 height_standard 60 in 20200916 o2_saturation 99 % 20200916 respiration_rate 18 /min 20200916 temperature_metric 37 C 20200916 temperature_standard 98.6 F 20200916 weight_metric 22.23 kg 20200916 weight_standard 49 lb date measurement value source 20200917 BP_diastolic 89 mm[Hg] 20200917 BP_systolic 149 mm[Hg] 20200917 heart_rate 99 /min 20200917 respiration_rate 19 /min 20200917 temperature_metric 36.33 C 20200917 temperature_standard 97.4 F date measurement value source 20201003 BP_diastolic 61 mm[Hg] 20201003 BP_systolic 134 mm[Hg] 20201003 heart_rate 118 /min 20201003 respiration_rate 24 /min 20201003 temperature_metric 37.72 C 20201003 temperature_standard 99.9 F 20201003 weight_metric 21.55 kg 20201003 weight_standard 47.5 lb date measurement value source 20201004 height_metric 144.78 cm 20201004 height_standard 57 in date measurement value source 20201006 BP_diastolic 68 mm[Hg] 20201006 BP_systolic 117 mm[Hg] 20201006 heart_rate 97 /min 20201006 respiration_rate 16 /min 20201006 temperature_metric 36.67 C 20201006 temperature_standard 98 F 20201006 weight_metric 21.45 kg 20201006 weight_standard 47.3 lb date measurement value source 20201014 BMI 19.1 kg/m2 20201014 height_metric 152.4 cm 20201014 height_standard 60 in 20201014 weight_metric 20.16 kg 20201014 weight_standard 44.45 lb date measurement value source 20201015 BP_diastolic 62 mm[Hg] 20201015 BP_systolic 115 mm[Hg] 20201015 heart_rate 92 /min 20201015 respiration_rate 24 /min 20201015 temperature_metric 37.06 C 20201015 temperature_standard 98.7 F Social History date description facility [id number]
[2020-10-15] MEDS ORDERED: SODIUM CHLORIDE 0.9% 1,000 ML IV STA (21:17)
[2020-10-15 21:40] LABS: BASOPHILS % (AUTO) 0.8 %; EOSINOPHILS % (AUTO) 0.6 %; HCT - HEMATOCRIT 24.4 % (37.0-47.0); HGB - HEMOGLOBIN 7.2 g/dL (12.0-16.0); LYMPHOCYTES % (AUTO) 14.3 %; MEAN CORPUSCULAR HEMOGLOBIN 26.6 pg (27.0-31.0); MEAN CORPUSCULAR HGB CONC 29.5 g/dL (32.0-36.0); MONOCYTES % (AUTO) 7.6 %; NEUTROPHILS % (AUTO) 67.7 %; RED BLOOD COUNT 2.71 10^6/uL (4.20-5.40); RED CELL DISTRIBUTION WIDTH 22.7 % (12.0-15.0); WHITE BLOOD COUNT 32.1 x10^3/uL (4.8-10.8)
[2020-10-15 21:48] LABS: PLT - PLATELET COUNT 119 10^3/uL (130-450)
[2020-10-15 21:51] LABS: ABNORMAL LYMPHS % (MANUAL) 0 %
[2020-10-15 22:08] LABS: ALBUMIN 2.6 g/dL (3.2-5.5); ALBUMIN/GLOBULIN RATIO 0.7 (1.0-2.2); ALKALINE PHOSPHATASE 903 IU/L (42-121); BILIRUBIN,TOTAL 1.8 mg/dL (0.2-1.0); BUN - BLOOD UREA NITROGEN < 5 mg/dL (6-20); CALCIUM 7.8 mg/dL (8.5-10.3); CARBON DIOXIDE - CO2 14 mmol/L (21-32); CHLORIDE 110 mmol/L (101-111); CREATININE 0.6 mg/dL (0.4-1.0); GFR - MDRD 97 (>89); GLUCOSE 143 mg/dL (70-100); LIPASE 35 U/L (22-51); POTASSIUM 5.2 mmol/L (3.5-5.0); SODIUM 139 mmol/L (135-145); TOTAL PROTEIN 6.1 g/dL (6.7-8.2)
[2020-10-15 22:10] LABS: ALT ALANINE AMINOTRANSFERASE QNS IU/L (10-60); AST ASPARTATE AMINOTRANSFERASE QNS IU/L (10-42)
[2020-10-15 22:25] LABS: BAND NEUTROPHILS % (MANUAL) 5 %; BASOPHILS # (MANUAL) 0.6 10^3/uL (0-0.1); BASOPHILS % (MANUAL) 2 %; EOSINOPHILS # (MANUAL) 0.3 10^3/uL (0-0.7); LYMPHOCYTES # (MANUAL) 3.5 10^3/uL (1.5-3.5); LYMPHOCYTES % (MANUAL) 11 %; METAMYELOCYTES % (MANUAL) 2 %; MONOCYTES # (MANUAL) 1.3 10^3/uL (0.0-1.0); MYELOCYTES % (MANUAL) 2 %; NUCLEATED RBC (MANUAL) 46 %
[2020-10-15 22:27] LABS: DIFFERENTIAL COMMENT MANUAL DIFFERENTIAL; PLATELET ESTIMATE, MANUAL DECREASED (<130,000) (NORMAL)
--- NOTE | 2020-10-15 23:06 | ED Physician Documentation ---
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 Per [facility] records, the patient was discharged with palliative care resources, found to be in CHF exacerbation in the setting of covid-19 recurrent infection. She was on home O2 4L and family called EMS. She was hypotensive in 70s systolic on EMS arrival and they gave her 200 cc IVF with improvement to 90s. Review of Systems Unable to obtain: Unresponsive, Confused PD PAST MEDICAL HISTORY - Past Medical History Past Medical History: Yes Cardiovascular: None Respiratory: Other Neuro: None Endocrine/Autoimmune: None GI: None ER TECH: None : None HEENT: None Psych: None Musculoskeletal: Osteoporosis Derm: None - Past Surgical History Past Surgical History: Yes /ER TECH: section Cardiovascular: Lobectomy - Present Medications Home Medications: Ambulatory Orders Medication Instructions Recorded Confirmed Gabapentin [Neurontin] 100 mg PO TID 07/28/20 07/30/20 Lorlatinib [Lorbrena] 50 mg PO DAILY 07/28/20 07/30/20 Metoprolol Tartrate [Lopressor] 25 mg PO BID #30 tablet 08/06/20 Saccharomyces Boulardii [Florastor] 250 mg PO BIDWM #10 capsule 08/06/20 amLODIPine [Norvasc] 5 mg PO DAILY #30 tablet 08/06/20 cefUROXime axetiL [Ceftin] 500 mg PO Q12H #20 tablet 08/06/20 oxyCODONE [Roxicodone] 5 mg PO Q6HR PRN #30 tablet 08/06/20 predniSONE [Deltasone] 10 mg PO [id number] #16 tab 08/06/20 oxyCODONE [Roxicodone] 5 mg PO Q4-6H PRN #30 tablet 10/15/20 - Allergies Allergies/Adverse Reactions: Allergies Allergy/AdvReac Type Severity Reaction Status Date / Time influenza virus vaccine, Allergy Unknown Verified 10/15/20 21:11 specific [influenza virus vacc,specific] - Social History Does the pt smoke?: No Smoking Status: Never smoker Does the pt drink ETOH?: No Does the pt have substance abuse?: No - Immunizations Immunizations are current?: Yes - POLST Patient has POLST: Yes POLST Status: DNR PD ED PE NORMAL - Vitals Vital signs reviewed: Yes - General General: Other (eye opening to verbal, in mild respiratory distress. cachectic appearing) - HEENT HEENT: Atraumatic, PERRL, EOMI, Other (dry MM) - Neck Neck: Supple, no meningeal sign - Cardiac Cardiac: RRR - Respiratory Respiratory: Other (mild increased WOB, improving with O2 administration. absent lung sounds on left.) - Abdomen Abdomen: Soft, Non tender, Non distended - Derm Derm: Normal color, Warm and dry - Extremities Extremities: No deformity - Neuro Neuro: Other (eye opening to verbal. moving all extremities. speaking in full sentences) - Psych Psych: Normal mood, Normal affect Results - Vitals Vitals: Vital Signs - 24 hr 10/15/20 10/15/20 10/15/20 21:11 21:16 21:44 Temperature 37.5 C 37.5 C Heart Rate 80 80 78 Respiratory 18 18 24 Rate Blood Pressure 90/71 90/71 138/100 H O2 Saturation 94 94 94 10/15/20 10/15/20 10/15/20 22:14 22:30 23:00 Temperature Heart Rate 80 75 75 Respiratory 22 24 21 Rate Blood Pressure 128/98 H 114/99 H 98/65 O2 Saturation 92 100 100 Oxygen O2 Source Room air - Labs Labs: Laboratory Tests 10/15/20 10/15/20 10/15/20 21:36 21:36 21:36 WBC 32.1 H RBC 2.71 L Hgb 7.2 L Hct 24.4 L MCV 90.0 MCH 26.6 L MCHC 29.5 L RDW 22.7 H Plt Count 119 L Neut # (Auto) Not Reportable Lymph # (Auto) Not Reportable [place] # (Auto) Not Reportable Eos # (Auto) Not Reportable Baso # (Auto) Not Reportable Absolute Nucleated RBC Not Reportable Total Counted 100 Band Neuts % (Manual) 5 Abnorm Lymph % (Manual) 0 Metamyelocytes % 2 H Myelocytes % 2 H Nucleated RBC % Not Reportable Neutrophils # (Manual) 25.0 H Lymphocytes # (Manual) 3.5 Monocytes # (Manual) 1.3 H Eosinophils # (Manual) 0.3 Basophils # (Manual) 0.6 H Nucleated RBCs 46 Differential Comment MANUAL DIFFERENTIAL Platelet Estimate DECREASED (<130,000) RBC Morph Micro Appear 1+ SCHISTOCYTES Sodium 139 Potassium 5.2 H Chloride 110 Carbon Dioxide 14 L Anion Gap 15.0 H BUN < 5 L Creatinine 0.6 Estimated GFR (MDRD) 97 Glucose 143 H Calcium 7.8 L Total Bilirubin 1.8 H AST QNS ALT QNS Alkaline Phosphatase 903 H Troponin I High Sens 53.5 H* B-Natriuretic Peptide Total Protein 6.1 L Albumin 2.6 L Globulin 3.5 Albumin/Globulin Ratio 0.7 L Lipase 35 10/15/20 22:50 WBC RBC Hgb Hct MCV MCH MCHC RDW Plt Count Neut # (Auto) Lymph # (Auto) [place] # (Auto) Eos # (Auto) Baso # (Auto) Absolute Nucleated RBC Total Counted Band Neuts % (Manual) Abnorm Lymph % (Manual) Metamyelocytes % Myelocytes % Nucleated RBC % Neutrophils # (Manual) Lymphocytes # (Manual) Monocytes # (Manual) Eosinophils # (Manual) Basophils # (Manual) Nucleated RBCs Differential Comment Platelet Estimate RBC Morph Micro Appear Sodium Potassium Chloride Carbon Dioxide Anion Gap BUN Creatinine Estimated GFR (MDRD) Glucose Calcium Total Bilirubin AST ALT Alkaline Phosphatase Troponin I High Sens B-Natriuretic Peptide 1171 H Total Protein Albumin Globulin Albumin/Globulin Ratio Lipase Procedures - General procedure General procedure: Tibial IO placement during code with return of blood from bone marrow. flushed well and medications administered through IO. - Intubation Provider: Emergency physician Blade: Damaris, Other (3) Tube: Size-enter number (7), Cuffed Route: Oral Confirmation: Direct visualization, Bilateral breath sounds, No abdominal breath sound, Pulse ox Complications: Right mainstem (purposeful R mainstem given L lobectomy) PD MEDICAL DECISION MAKING - ED course ED course: d/w first Erika POA who understands poor prognosis and is amenable to palliative care outpatient with Concha Sales. Patient is requesting to go home now. d/w multiple family members over the phone and in the ambulance bay about goals of care for the patient. Palliative care resources provided. Emphasized extremely poor prognosis given her advanced stage cancer, heart failure, and Covid. Family is unable to make her DNR/DNI at this time however they agree that they will take her home to be with family given her worsening clinical status and extremely poor prognosis. They agree that central line placement and hospitalization is not something that she would want at this time. They will follow up with Concha Sales, palliative care [employer]. Note that patient requested to go home and her POA Sofiya agreed to take her home. We had extensive discussion about poor prognosis and possibility that she will tonight, however because she was awake, with robust blood pressure, normal HR, and O2 sats in mid90s on 4L nasal cannula and requesting to go home the family decided they would like to take her. Plan was to follow up with palliative care as well as hospice. Upon being brought from her ED bed to the car, while surrounded by family, she became unresponsive and lost pulses. I spoke with family at that time and they were very distressed, requesting she have CPR despite her 2015 POLST which stated DNR/DNI. We initiated CPR, brought her back to the ED and continued ACLS protocol (see code sheet). After prolonged resuscitative measures she did not have any prolonged ROSC. Code was called and family were notified. Cause of : complications 2/2 covid-19 and metastatic lung cancer. - Critical Care Time(min): 30 Time Includes: Direct patient care, Review records, Reassess patient, Document care, Coordinate care, Family consult for tx dec Data interpretation: Labs, Pulse ox Procedures excluded from critical care time: Intraosseous, Intubation, CPR Departure - Departure Disposition: 20 Clinical Impression: COVID-19, Heart failure Condition: Serious Instructions: Care Palliative, Heart Failure Coping, COVID-[address] [facility] Follow-Up: Concha Sales ARNP [Provider Admit Priv/Credential] - Prescriptions: oxyCODONE [Roxicodone] 5 mg PO Q4-6H PRN #30 tablet PRN Reason: Pain Comments: Your mother was seen in the emergency department for COVID-19 and for congestive heart failure. After discussing your mother's poor prognosis she is requesting to go home. Please give her oxygen and pain medicine as needed. Please follow- up with Concha Sales, our nurse practitioner on the [place] that specializes in palliative care.
[2020-10-15 23:20] VITALS: BP 98/65
[2020-10-16] MEDS ORDERED: EPINEPHrine 1 MG/ML VIAL ONE ×2 (00:08→00:09)
[2020-10-16] MEDS ORDERED: EPINEPHrine ABBOJECT 1 MG/10 ML SYRINGE IVP ONE (00:10)
[2020-10-16] MEDS ORDERED: EPINEPHrine 1 MG/ML AMP ONE (00:10)
--- NOTE | 2020-10-16 08:33 | XRAY Report ---
PROCEDURE: Chest 1 View X-Ray INDICATIONS: Chest Pain TECHNIQUE: One view of the chest was acquired. COMPARISON: 08/05/2020 FINDINGS: Surgical changes and devices: Multiple surgical clips in the left hemithorax, unchanged. Lungs and pleura: Stable postsurgical changes from previous left pneumonectomy with complete opacifi cation of the left hemithorax. There is associated volume loss with leftward shift of mediastinal str uctures. This is also unchanged. There is diffuse interstitial prominence with patchy opacities of th e medial right lung base and right middle and upper lung zones. No focal consolidations. No right-jim ed pleural effusion seen. No pneumothorax visualized. Mediastinum: Mediastinal contours appear stable. Heart size is unable to be assessed as the cardiac margins are completely silhouetted by opacified left hemithorax. Bones and chest wall: No suspicious bony lesions. Overlying soft tissues appear unremarkable. IMPRESSION: 1. Patchy right medial basilar and scattered right hemithorax air space opacities likely representing infectious/inflammatory process. This has not resolved compared to prior studies and appears more pr ominent in the medial right lung base. Recommend correlation for clinical history of inflammation/inf ection symptoms. Further evaluation with CT can be considered. 2. Stable postsurgical changes from prior left pneumonectomy. No significant discrepancy with initial interpretation by overnight radiologist. Reviewed by: Juan Childers MD on 10/16/2020 8:32 AM PDT Approved by: Juan Childers MD on 10/16/2020 8:32 AM PDT Station ID: [id number]
== END 2020-10-16 05:06 | disposition expired ==
LOC: EDUNIT# → SUPCPDRO 21:04 → ED 21:04
DX: U07.1 COVID-19 (principal); I50.9 Heart failure, unspecified; C34.90 Malignant neoplasm of unspecified part of unspecified bronchus or lung; C79.51 Secondary malignant neoplasm of bone; C79.31 Secondary malignant neoplasm of brain; Z99.81 Dependence on supplemental oxygen; Z90.2 Acquired absence of lung [part of]
CPT/HCPCS: 31500; 36415; 71045; 80053; 83690; 83880; 84484; 85025; 92950; 93005; 99291; J0171